=== PATIENT | male | born 1965 | race American Indian/Alaskan Native ===

== ENCOUNTER 2017-01-30 00:31 | Emergency (ER) | payer MEDICAID | END 2017-01-30 01:55 | disposition left against medical advice (07) | LOC: ED 00:31 | DX: M79.605 Pain in left leg (principal); Z88.1 Allergy status to other antibiotic agents; Z88.8 Allergy status to other drugs, medicaments and biological substances; Z53.21 Procedure and treatment not carried out due to patient leaving prior to being seen by health care provider ==

== ENCOUNTER 2017-01-30 14:57 | Outpatient (CLI) | payer MEDICAID ==
[2017-01-30 15:28] LABS: BUN/Creatinine Ratio 11.2; Calcium 9.6 mg/dL (8.4-10.2); Potassium 4.9 mmol/L (3.6-5.0)
== END 2017-01-30 14:58 | disposition home or self-care (01) ==
LOC: LAB 14:57
PROVIDERS: ATTEND Internal Medicine Nephrology
DX: E87.5 Hyperkalemia (principal)
CPT/HCPCS: 36415; 80048

== ENCOUNTER 2019-02-06 11:49 | Outpatient (CLI) | payer MEDICAID ==
[2019-02-06 12:28] LABS: Hematocrit 39.9 % (35.5-45.6); Hemoglobin 12.9 gm/dl (11.8-15.2); Mean Corpuscular HGB Conc 32 % (32-34); Mean Corpuscular Volume 85 fl (84-94); Platelet Count 191 K/mm3 (140-440); Red Blood Count 4.68 M/mm3 (3.65-5.03); Red Cell Distribution Width 15.3 % (13.2-15.2)
[2019-02-06 12:53] LABS: Albumin 4.7 g/dL (3.9-5); Calcium 9.2 mg/dL (8.4-10.2)
[2019-02-06 14:03] LABS: Creatinine,Urine 69.3 mg/dL (0.1-20.0); Protein/Creatinine Ratio,Urine 1.24
[2019-02-10 13:29] LABS: Vitamin D, 25-OH, D2 <4 ng/mL
== END 2019-02-06 11:50 | disposition home or self-care (01) ==
LOC: LAB 11:49
PROVIDERS: ATTEND Internal Medicine Nephrology
DX: I12.0 Hypertensive chronic kidney disease with stage 5 chronic kidney disease or end stage renal disease (principal); N18.5 Chronic kidney disease, stage 5; N25.81 Secondary hyperparathyroidism of renal origin; E55.9 Vitamin D deficiency, unspecified; F17.200 Nicotine dependence, unspecified, uncomplicated; K21.9 Gastro-esophageal reflux disease without esophagitis
CPT/HCPCS: 36415; 80048; 82040; 82306; 82570; 83970; 84100; 84156; 85027

== ENCOUNTER 2019-08-03 00:31 | Inpatient (IN) | payer MEDICAID ==
[2019-08-03] MEDS ORDERED: ASPIRIN 325 MG TAB PO ONE (00:49)
[2019-08-03] MEDS ORDERED: ONDANSETRON 4 MG/2 ML INJ IV ONE (00:51)
[2019-08-03] MEDS ORDERED: FAMOTIDINE 20 MG/2 ML INJ IV ONE (00:51)
[2019-08-03] MEDS ORDERED: ACETAMINOPHEN 325 MG TAB PO ONE (00:52)
[2019-08-03] MEDS ORDERED: NITROGLYCERIN DRIP 50 MG/250 ML BOTTLE IV SCH (01:00)
--- NOTE | 2019-08-03 01:16 | Emergency Department Report ---
ED General Adult HPI - General Chief complaint: Chest Pain Stated complaint: CHEST PAIN Time Seen by Provider: 08/03/19 00:41 Source: EMS Mode of arrival: Stretcher Limitations: No Limitations - History of Present Illness Initial comments: Patient is a 54-year-old -Filipino male who is presenting with chest pain with nausea vomiting. Patient is a poor historian and is having a difficult time given timeframe for his symptoms. The patient has a history of hypertension and lupus and kidney disease and stopped taking hemodialysis on his own 1 year ago. Patient was initially stated that he's had chest pain for the last several hours as well as distention of his neck veins and pain of his neck with nausea vomiting for the past several hours. When asked head the patient had these symptoms before he states he's has been continuously for the last 4 months. Patient also states he has left arm weakness and also been present for several months as well. Patient then told the nurse that his symptoms started acutely tonight. Patient denies fevers chills cough cold or congestion. - Related Data Previous Rx's Medication Instructions Recorded Last Taken Type Calcitriol [Rocaltrol] 0.25 mcg PO QDAY #30 capsule 03/19/15 Unknown Rx Acetaminophen [Acetaminophen TAB] 650 mg PO Q4H PRN #30 tablet 04/06/18 Unknown Rx Gabapentin 300 mg PO BID #60 capsule 04/06/18 Unknown Rx LORazepam [Ativan] 1 mg PO TID PRN #15 tablet 04/06/18 Unknown Rx Metoprolol [Lopressor TAB] 100 mg PO BID #60 tablet 04/06/18 Unknown Rx Minoxidil [Loniten] 10 mg PO BID #60 tablet 04/06/18 Unknown Rx NIFEdipine XL [Procardia Xl] 60 mg PO BID #60 tablet 04/06/18 Unknown Rx Sodium Bicarbonate 650 mg PO BID #60 tablet 04/06/18 Unknown Rx cloNIDine [Catapres] 0.1 mg PO Q8HR #90 tablet 04/06/18 Unknown Rx oxyCODONE /ACETAMINOPHEN [Percocet 1 tab PO Q6H PRN #20 tablet 04/06/18 Unknown Rx 5/325 mg] Allergies Allergy/AdvReac Type Severity Reaction Status Date / Time doxycycline Allergy Unknown Verified 11/01/16 16:25 prochlorperazine edisylate Allergy Unknown Verified 11/01/16 16:25 [From Compazine] ED Review of Systems ROS: Stated complaint: CHEST PAIN Other details as noted in HPI Comment: All other systems reviewed and negative ED Past Medical Hx - Past Medical History Hx Hypertension: Yes Hx Heart Attack/AMI: No Hx Congestive Heart Failure: No Hx Diabetes: No Hx Deep Vein Thrombosis: No Hx Pulmonary Embolism: No Hx Liver Disease: No Hx Renal Disease: Yes Hx Sickle Cell Disease: No Hx Arthritis: No Hx Headaches / Migraines: No Hx Seizures: No Hx Kidney Stones: No Hx Asthma: No Hx COPD: No Hx Tuberculosis: No Hx Dementia: No Hx HIV: No Additional medical history: Lupus - Surgical History Hx Coronary Stent: No Hx Open Heart Surgery: No Hx Pacemaker: No Hx Internal Defibrillator: No Hx Cholecystectomy: Yes Hx Appendectomy: No Hx Breast Surgery: No Additional Surgical History: kidney biopsys - Social History Smoking Status: Current Every Day Smoker Substance Use Type: None - Medications Home Medications: Home Medications Medication Instructions Recorded Confirmed Last Taken Type Calcitriol [Rocaltrol] 0.25 mcg PO QDAY #30 capsule 03/19/15 03/31/18 Unknown Rx Acetaminophen [Acetaminophen TAB] 650 mg PO Q4H PRN #30 tablet 04/06/18 Unknown Rx Gabapentin 300 mg PO BID #60 capsule 04/06/18 Unknown Rx LORazepam [Ativan] 1 mg PO TID PRN #15 tablet 04/06/18 Unknown Rx Metoprolol [Lopressor TAB] 100 mg PO BID #60 tablet 04/06/18 Unknown Rx Minoxidil [Loniten] 10 mg PO BID #60 tablet 04/06/18 Unknown Rx NIFEdipine XL [Procardia Xl] 60 mg PO BID #60 tablet 04/06/18 Unknown Rx Sodium Bicarbonate 650 mg PO BID #60 tablet 04/06/18 Unknown Rx cloNIDine [Catapres] 0.1 mg PO Q8HR #90 tablet 04/06/18 Unknown Rx oxyCODONE /ACETAMINOPHEN [Percocet 1 tab PO Q6H PRN #20 tablet 04/06/18 Unknown Rx 5/325 mg] ED Physical Exam - General Limitations: No Limitations General appearance: alert, in distress - Head Head exam: Present: atraumatic, normocephalic - Eye Eye exam: Present: normal appearance, PERRL, EOMI - ENT ENT exam: Present: mucous membranes moist - Neck Neck exam: Present: normal inspection - Respiratory Respiratory exam: Present: normal lung sounds bilaterally. Absent: respiratory distress, wheezes, rales, rhonchi, stridor - Cardiovascular Cardiovascular Exam: Present: regular rate, normal rhythm, normal heart sounds. Absent: systolic murmur, diastolic murmur, rubs, gallop - GI/Abdominal GI/Abdominal exam: Present: soft, normal bowel sounds. Absent: distended, tenderness, guarding, rebound - Rectal Rectal exam: Present: deferred - Extremities Exam Extremities exam: Present: normal inspection - Back Exam Back exam: Present: normal inspection - Neurological Exam Neurological exam: Present: alert, oriented X3 - Psychiatric Psychiatric exam: Present: normal affect, normal mood - Skin Skin exam: Present: warm, dry, intact, normal color. Absent: rash ED Course Vital Signs 08/03/19 08/03/19 00:47 00:53 Temperature 98.1 F Pulse Rate 88 Respiratory 18 Rate Blood Pressure 204/132 ED Medical Decision Making - Lab Data Result diagrams: 08/03/19 01:11 08/03/19 01:11 Lab Results 08/03/19 08/03/19 08/03/19 Range/Units 01:11 01:11 01:11 WBC 6.0 (4.5-11.0) K/mm3 RBC 3.98 (3.65-5.03) M/mm3 Hgb 11.1 L (11.8-15.2) gm/dl Hct 33.7 L (35.5-45.6) % MCV 85 (84-94) fl MCH 28 (28-32) pg MCHC 33 (32-34) % RDW 15.3 H (13.2-15.2) % Plt Count 184 (140-440) K/mm3 Lymph % (Auto) 23.9 (13.4-35.0) % [place] % (Auto) 7.8 H (0.0-7.3) % Eos % (Auto) 3.5 (0.0-4.3) % Baso % (Auto) 0.7 (0.0-1.8) % Lymph # 1.4 (1.2-5.4) K/mm3 [place] # 0.5 (0.0-0.8) K/mm3 Eos # 0.2 (0.0-0.4) K/mm3 Baso # 0.0 (0.0-0.1) K/mm3 Seg Neutrophils % 64.1 (40.0-70.0) % Seg Neutrophils # 3.8 (1.8-7.7) K/mm3 PT (12.2-14.9) Sec. INR (0.87-1.13) APTT (24.2-36.6) Sec. Sodium 139 (137-145) mmol/L Potassium 3.9 (3.6-5.0) mmol/L Chloride 103.1 (98-107) mmol/L Carbon Dioxide 19 L (22-30) mmol/L Anion Gap 21 mmol/L BUN 93 H (9-20) mg/dL Creatinine 10.8 H (0.8-1.5) mg/dL Estimated GFR 6 ml/min BUN/Creatinine Ratio 9 % Glucose 101 H (75-100) mg/dL Calcium 8.5 (8.4-10.2) mg/dL Total Bilirubin 0.30 (0.1-1.2) mg/dL AST 19 (5-40) units/L ALT 24 (7-56) units/L Alkaline Phosphatase 93 (35-129) units/L Troponin T 0.016 (0.00-0.029) ng/mL Total Protein 8.0 (6.3-8.2) g/dL Albumin 4.6 (3.9-5) g/dL Albumin/Globulin Ratio 1.4 % Lipase 90 H (13-60) units/L Urine Color (Yellow) Urine Turbidity (Clear) Urine pH (5.0-7.0) Ur Specific Model (1.003-1.030) Urine Protein (Negative) mg/dL Urine Glucose (UA) (Negative) mg/dL Urine Ketones (Negative) mg/dL Urine Blood (Negative) Urine Nitrite (Negative) Urine Bilirubin (Negative) Urine Urobilinogen (<2.0) mg/dL Ur Leukocyte Esterase (Negative) Urine WBC (Auto) (0.0-6.0) /HPF Urine RBC (Auto) (0.0-6.0) /HPF Urine Bacteria (Auto) (Negative) /HPF Urine Mucus /HPF Urine Opiates Screen Urine Methadone Screen Ur Barbiturates Screen Ur Phencyclidine Scrn Ur Amphetamines Screen U Benzodiazepines Scrn Urine Cocaine Screen U Marijuana (THC) Screen Drugs of Abuse Note Plasma/Serum Alcohol (0-0.07) % 08/03/19 08/03/19 08/03/19 Range/Units 01:11 01:52 Unknown WBC (4.5-11.0) K/mm3 RBC (3.65-5.03) M/mm3 Hgb (11.8-15.2) gm/dl Hct (35.5-45.6) % MCV (84-94) fl MCH (28-32) pg MCHC (32-34) % RDW (13.2-15.2) % Plt Count (140-440) K/mm3 Lymph % (Auto) (13.4-35.0) % [place] % (Auto) (0.0-7.3) % Eos % (Auto) (0.0-4.3) % Baso % (Auto) (0.0-1.8) % Lymph # (1.2-5.4) K/mm3 [place] # (0.0-0.8) K/mm3 Eos # (0.0-0.4) K/mm3 Baso # (0.0-0.1) K/mm3 Seg Neutrophils % (40.0-70.0) % Seg Neutrophils # (1.8-7.7) K/mm3 PT 18.3 H (12.2-14.9) Sec. INR 1.54 H (0.87-1.13) APTT 33.1 (24.2-36.6) Sec. Sodium (137-145) mmol/L Potassium (3.6-5.0) mmol/L Chloride (98-107) mmol/L Carbon Dioxide (22-30) mmol/L Anion Gap mmol/L BUN (9-20) mg/dL Creatinine (0.8-1.5) mg/dL Estimated GFR ml/min BUN/Creatinine Ratio % Glucose (75-100) mg/dL Calcium (8.4-10.2) mg/dL Total Bilirubin (0.1-1.2) mg/dL AST (5-40) units/L ALT (7-56) units/L Alkaline Phosphatase (35-129) units/L Troponin T (0.00-0.029) ng/mL Total Protein (6.3-8.2) g/dL Albumin (3.9-5) g/dL Albumin/Globulin Ratio % Lipase (13-60) units/L Urine Color Straw (Yellow) Urine Turbidity Clear (Clear) Urine pH 5.0 (5.0-7.0) Ur Specific Model 1.008 (1.003-1.030) Urine Protein 100 mg/dl (Negative) mg/dL Urine Glucose (UA) Neg (Negative) mg/dL Urine Ketones Neg (Negative) mg/dL Urine Blood Sm (Negative) Urine Nitrite Neg (Negative) Urine Bilirubin Neg (Negative) Urine Urobilinogen < 2.0 (<2.0) mg/dL Ur Leukocyte Esterase Neg (Negative) Urine WBC (Auto) 4.0 (0.0-6.0) /HPF Urine RBC (Auto) 4.0 (0.0-6.0) /HPF Urine Bacteria (Auto) 1+ (Negative) /HPF Urine Mucus Few /HPF Urine Opiates Screen Urine Methadone Screen Ur Barbiturates Screen Ur Phencyclidine Scrn Ur Amphetamines Screen U Benzodiazepines Scrn Urine Cocaine Screen U Marijuana (THC) Screen Drugs of Abuse Note Plasma/Serum Alcohol < 0.01 (0-0.07) % 08/03/19 Range/Units Unknown WBC (4.5-11.0) K/mm3 RBC (3.65-5.03) M/mm3 Hgb (11.8-15.2) gm/dl Hct (35.5-45.6) % MCV (84-94) fl MCH (28-32) pg MCHC (32-34) % RDW (13.2-15.2) % Plt Count (140-440) K/mm3 Lymph % (Auto) (13.4-35.0) % [place] % (Auto) (0.0-7.3) % Eos % (Auto) (0.0-4.3) % Baso % (Auto) (0.0-1.8) % Lymph # (1.2-5.4) K/mm3 [place] # (0.0-0.8) K/mm3 Eos # (0.0-0.4) K/mm3 Baso # (0.0-0.1) K/mm3 Seg Neutrophils % (40.0-70.0) % Seg Neutrophils # (1.8-7.7) K/mm3 PT (12.2-14.9) Sec. INR (0.87-1.13) APTT (24.2-36.6) Sec. Sodium (137-145) mmol/L Potassium (3.6-5.0) mmol/L Chloride (98-107) mmol/L Carbon Dioxide (22-30) mmol/L Anion Gap mmol/L BUN (9-20) mg/dL Creatinine (0.8-1.5) mg/dL Estimated GFR ml/min BUN/Creatinine Ratio % Glucose (75-100) mg/dL Calcium (8.4-10.2) mg/dL Total Bilirubin (0.1-1.2) mg/dL AST (5-40) units/L ALT (7-56) units/L Alkaline Phosphatase (35-129) units/L Troponin T (0.00-0.029) ng/mL Total Protein (6.3-8.2) g/dL Albumin (3.9-5) g/dL Albumin/Globulin Ratio % Lipase (13-60) units/L Urine Color (Yellow) Urine Turbidity (Clear) Urine pH (5.0-7.0) Ur Specific Model (1.003-1.030) Urine Protein (Negative) mg/dL Urine Glucose (UA) (Negative) mg/dL Urine Ketones (Negative) mg/dL Urine Blood (Negative) Urine Nitrite (Negative) Urine Bilirubin (Negative) Urine Urobilinogen (<2.0) mg/dL Ur Leukocyte Esterase (Negative) Urine WBC (Auto) (0.0-6.0) /HPF Urine RBC (Auto) (0.0-6.0) /HPF Urine Bacteria (Auto) (Negative) /HPF Urine Mucus /HPF Urine Opiates Screen Presumptive negative Urine Methadone Screen Presumptive negative Ur Barbiturates Screen Presumptive negative Ur Phencyclidine Scrn Presumptive negative Ur Amphetamines Screen Presumptive negative U Benzodiazepines Scrn Presumptive negative Urine Cocaine Screen Presumptive negative U Marijuana (THC) Screen Presumptive negative Drugs of Abuse Note Disclamer Plasma/Serum Alcohol (0-0.07) % - EKG Data -: EKG Interpreted by Co EKG shows normal: sinus rhythm (rate 83), axis, intervals, QRS complexes, ST-T waves Rate: normal - EKG Data Interpretation: normal EKG - Radiology Data CHEST 1 VIEW INDICATION / CLINICAL INFORMATION: Chest Pain. COMPARISON: None available. FINDINGS: SUPPORT DEVICES: None. HEART / MEDIASTINUM: No significant abnormality. LUNGS / PLEURA: No significant pulmonary or pleural abnormality. No pneumothorax. ADDITIONAL FINDINGS: No significant additional findings. IMPRESSION: 1. No acute findings. - Medical Decision Making Patient was started on nitro drip for his chest pain as well as his elevated blood pressure. Blood pressure dropped to 180 systolic. Patient was comfortable and was able to rest and take a nap after the nitroglycerin was given. Patient did not appear to be fluid overloaded of regarding missing his dialysis for the last year. Patient was in end-stage renal failure with GFR 6. Patient's we taken off of the nitro drip and will be given boluses of labetalol for blood pressure control. Patient does have a heart score of 4. Patient is admitted for cardiology consult as well as nephrology consult. Critical care attestation.: If time is entered above; I have spent that time in minutes in the direct care of this critically ill patient, excluding procedure time. ED Disposition Clinical Impression: Hypertensive urgency, malignant, Current non-adherence to medical treatment Chest pain Qualifiers: Chest pain type: unspecified Qualified Code(s): R07.9 - Chest pain, unspecified CKD (chronic kidney disease) Qualifiers: Chronic kidney disease stage: stage 5, not on chronic dialysis Qualified Code(s): N18.5 - Chronic kidney disease, stage 5 Systemic lupus erythematosus Qualifiers: Systemic lupus erythematosus type: unspecified Systemic lupus erythematosus organ involvement: unspecified Qualified Code(s): M32.9 - Systemic lupus erythematosus, unspecified Disposition: 09 OP ADMIT IP TO THIS HOSP Is pt being admited?: Yes Does the pt Need Aspirin: No Condition: Stable Instructions: Chest Pain (ED) Time of Disposition: 03:02
--- NOTE | 2019-08-03 01:34 | XRay Report ---
CHEST 1 VIEW INDICATION / CLINICAL INFORMATION: Chest Pain. COMPARISON: None available. FINDINGS: SUPPORT DEVICES: None. HEART / MEDIASTINUM: No significant abnormality. LUNGS / PLEURA: No significant pulmonary or pleural abnormality. No pneumothorax. ADDITIONAL FINDINGS: No significant additional findings. IMPRESSION: 1. No acute findings. Signer Name: Shay Grant MD Signed: 08/03/2019 1:29 AM Workstation Name: [id number]
[2019-08-03 01:44] LABS: Basophils % (Auto) 0.7 % (0.0-1.8); Eosinophils # (Auto) 0.2 K/mm3 (0.0-0.4); Eosinophils % (Auto) 3.5 % (0.0-4.3); Hematocrit 33.7 % (35.5-45.6); Hemoglobin 11.1 gm/dl (11.8-15.2); Lymphocytes # (Auto) 1.4 K/mm3 (1.2-5.4); Lymphocytes % (Auto) 23.9 % (13.4-35.0); Mean Corpuscular HGB Conc 33 % (32-34); Mean Corpuscular Volume 85 fl (84-94); Monocytes # (Auto) 0.5 K/mm3 (0.0-0.8); Monocytes % (Auto) 7.8 % (0.0-7.3); Platelet Count 184 K/mm3 (140-440); Red Blood Count 3.98 M/mm3 (3.65-5.03); Red Cell Distribution Width 15.3 % (13.2-15.2)
[2019-08-03 01:45] LABS: Albumin 4.6 g/dL (3.9-5); Calcium 8.5 mg/dL (8.4-10.2)
[2019-08-03] MEDS ORDERED: DICYCLOMINE 20 MG/2 ML INJ IM ONE (01:46)
[2019-08-03] MEDS ORDERED: KETOROLAC 30 MG/1 ML INJ IV ONE (01:59)
[2019-08-03 02:01] LABS: INR 1.54 (0.87-1.13)
[2019-08-03] MEDS ORDERED: KETOROLAC 30 MG/1 ML INJ ONE (02:01)
[2019-08-03 02:02] LABS: Partial Thromboplastin Time 33.1 Sec. (24.2-36.6)
[2019-08-03 02:28] LABS: Amphetamine Screen,Urine PRESUMPTIVE NEGATIVE; Benzodiazepines Screen,Urine PRESUMPTIVE NEGATIVE; Cannabinoid Screen,Urine PRESUMPTIVE NEGATIVE; Cocaine Screen,Urine PRESUMPTIVE NEGATIVE; Methadone Screen,Urine PRESUMPTIVE NEGATIVE; Opiate Screen,Urine PRESUMPTIVE NEGATIVE
[2019-08-03 02:38] LABS: Bacteria,Urine 1+ /HPF (Negative); Bilirubin,Urine NEG (Negative); Blood,Urine SM (Negative); Color,Urine Straw (Yellow); Mucus,Urine FEW /HPF; Urobilinogen,Urine < 2.0 mg/dL (<2.0)
[2019-08-03] MEDS ORDERED: LORazepam 1 MG TAB PO PRN (06:24)
[2019-08-03] MEDS ORDERED: ACETAMINOPHEN 325 MG TAB PO PRN ×2 (06:24→06:28)
[2019-08-03] MEDS ORDERED: oxyCODONE /ACETAMINOPHEN 5-325MG TAB PO PRN (06:24)
--- NOTE | 2019-08-03 06:24 | Event Note ---
Date: 08/03/19 See history and physical in the reports Chest pain rule out [facility] protocol ESRD needing dialysis
--- NOTE | 2019-08-03 06:58 | History and Physical Report ---
CHIEF COMPLAINT: 1. Chest pain. 2. Nausea and vomiting. 3. Missed hemodialysis for about 10 months. HISTORY OF PRESENT ILLNESS: A 54-year-old -[place] male with a history of end-stage renal disease, on hemodialysis, comes in for left-sided chest pain associated with nausea and vomiting for 1 day duration. Chest pain is intermittent and retrosternal. No radiation. No diaphoresis, shortness of breath present, and orthopnea present. The patient was getting dialysis until 10 months ago. The patient took himself off dialysis and not going for dialysis for the last 10 months. The patient's operations recruiter is Dr. Poe. The patient also has orthopnea. Shortness of breath on minimal exertion. Very poor historian. PAST MEDICAL HISTORY: As mentioned, hypertension, end-stage renal disease, chronic pain. No diabetes. PAST SURGICAL HISTORY: Kidney biopsies. SOCIAL HISTORY: Smokes over a pack a day. FAMILY HISTORY: Hypertension. CURRENT MEDICATIONS: On the chart, lorazepam 1 mg 3 times a day, metoprolol 100 mg twice a day, minoxidil 10 mg twice a day, and nifedipine 60 mg twice a day. REVIEW OF SYSTEMS: Significant for nausea, vomiting for a couple of days and associated with chest pain and increasing shortness of breath of 1 week duration. The patient has been missing dialysis. Otherwise, review of systems negative. PHYSICAL EXAMINATION: GENERAL: Middle-aged male, looks older than his age. Some distress. VITAL SIGNS: Temperature 98.7, pulse is 78, respirations are 16, sats are 98%, and blood pressure 157/109. HEENT: Unremarkable. Pupils are equal and reactive. NECK: Supple, no lymphadenopathy, no thyromegaly. LUNGS: Clear to auscultation and percussion. Good air entry. CARDIOVASCULAR SYSTEM: S1, S2 heard. No gallop, no murmur, no rub. Apical impulse in left fifth intercostal space and midclavicular line. ABDOMEN: Soft and benign. No hepatosplenomegaly. No guarding, no rigidity. Hernial orifices are normal. EXTREMITIES: Good pedal pulses. Slight pedal edema present. CENTRAL NERVOUS SYSTEM: Alert and oriented x 4, nonfocal exam. LABORATORY DATA: Significant for a white count of 6000, H and H 11.1 and 33.7, platelet count of 184,000. Protime is 18.3, INR is 1.54. Sodium is 139, potassium is low 3.9, chloride is 103, bicarbonate is 19, BUN and creatinine is 93 and 10.8, glucose is 101. Lipase is 90. Urine negative. Drug screen negative. DIAGNOSTIC DATA: Chest x-ray shows no acute findings. No significant additional findings. No pulmonary edema. EKG reviewed. ASSESSMENT AND PLAN: 1. Chest pain, rule out myocardial infarction, chest pain protocol. Serial troponins and Lexiscan ordered. 2. End-stage renal disease, needing dialysis. The patient needs hemodialysis on an urgent basis. The patient needs ultrafiltration. Dr. Poe consulted. 3. Volume overload. The patient needs dialysis for increasing altered ultrafiltration. 4. Hypertension. Continue antihypertensives. 5. Generalized anxiety disorder. Continue lorazepam. 6. Deep venous thrombosis prophylaxis, heparin 5000 q. 12 and gastrointestinal prophylaxis with famotidine. JOB# [id number] [facility]/NTS ZANDER
[2019-08-03] MEDS: cloNIDine 0.1 MG TAB PO SCH ×5 (07:01→22:16)
[2019-08-03] MEDS ORDERED: REGADENOSON 0.4 MG/5 ML INJ IV ONE ×2 (07:02→07:20)
[2019-08-03] MEDS ORDERED: SODIUM CHLORIDE 0.9% 100 ML IV PRN (08:30)
[2019-08-03 11:49] LABS: Hepatitis B Surface Antigen Non-Reactive (Negative); Hepatitis C Virus Antibody Reactive (NonReactive)
[2019-08-03] MEDS: HYDROmorphone 1 MG/1 ML INJ IV PRN ×2 (13:18→19:23)
[2019-08-03] MEDS: SODIUM BICARBONATE 650 MG TAB PO SCH ×2 (14:07→22:08)
[2019-08-03] MEDS: CALCITRIOL 0.25 MCG CAP PO SCH (14:07)
[2019-08-03] MEDS: GABAPENTIN 300 MG CAP PO SCH ×2 (14:07→22:08)
[2019-08-03] MEDS: FAMOTIDINE 10 MG TAB PO SCH ×2 (14:08→22:08)
[2019-08-03] MEDS: NIFEdipine XL 60 MG TAB PO SCH ×2 (14:11→18:31)
[2019-08-03] MEDS: MINOXIDIL 10 MG TAB PO SCH ×2 (14:12→22:10)
[2019-08-03] MEDS: METOPROLOL TARTRATE 100 MG TAB PO SCH ×2 (14:12→22:08)
--- NOTE | 2019-08-03 16:06 | Discharge Summary ---
Providers - Providers Date of Admission: 08/03/19 04:22 Date of discharge: 08/03/19 Attending physician: OMA WILL 08/03/19 06:25 Consult to Physician [CONS] Routine Comment: Consulting Provider: RAGHAVENDRA COLON Physician Instructions: Reason For Exam: ESRD Primary care physician: COOPER APPRENTICE Hospitalization Condition: Stable Pertinent studies: CXR MPI stress test Hospital course: -year-old with a history of presented to the ER with complaints of Retrosternal chest pain for . Patient was evaluated in the ER, initial cardiac enzyme and EKG was unremarkable, chest x-ray showed no infiltrates. Patient was admitted and underwent myocardial stress test which was normal. Patient was then discharged home in stable condition with outpatient follow-up. Discharge diagnosis: Atypical chest pain, likely due to pulmonary edema from volume overload ESRD, noncompliant for HD HTN, stable Disposition: DC-30 STILL A PATIENT Time spent for discharge: 34 minutes Core Measure Documentation - Palliative Care Palliative Care/ Comfort Measures: Not Applicable - Core Measures Any of the following diagnoses?: none Exam - Constitutional Vitals: Temp Pulse Resp BP Pulse Ox 97.8 F 74 18 150/105 98 08/03/19 07:30 08/03/19 14:12 08/03/19 13:48 08/03/19 14:12 08/03/19 07:30 General appearance: Present: no acute distress, well-nourished - EENT Eyes: Present: PERRL ENT: hearing intact, clear oral mucosa - Neck Neck: Present: supple, normal ROM - Respiratory Respiratory effort: normal Respiratory: bilateral: CTA - Cardiovascular Heart Sounds: Present: S1 & S2. Absent: rub, click - Extremities Extremities: pulses symmetrical, No edema Peripheral Pulses: within normal limits - Abdominal General gastrointestinal: Present: soft, non-tender, non-distended, normal bowel sounds - Integumentary Integumentary: Present: clear, warm, dry - Musculoskeletal Musculoskeletal: gait normal, strength equal bilaterally - Psychiatric Psychiatric: appropriate mood/affect, intact judgment & insight - Neurologic Neurologic: CNII-XII intact, moves all extremities Plan Activity: advance as tolerated Weight Bearing Status: Non-Weight Bearing Diet: low fat, low salt, renal Special Instructions: restrict fluid intake to (1.2 L daily) Follow up with: PRIMARY CARE, [Primary Care Provider] - 7 Days
--- NOTE | 2019-08-03 16:53 | Consultation ---
History of Present Illness - Reason for Consult Consult date: 08/03/19 chronic renal failure Requesting physician: OMA WILL - History of Present Illness This is a 54 yo AA M with past medical history of CKD V/ESRD in the setting of poorly controlled hypertension, with h/o lupus, was previously on dialysis but had been able to be transition off. Apparently he was not tolerating the HD sessions well, had issues with intra-dialytic hypotension. 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 Labs showed significantly elevated BUN/Cr at 93/10.8mg/dl for which renal consult is requested. Past History Past Medical History: ESRD, hypertension Past Surgical History: Other (AVF placement, kidney biopsy ) Social history: smoking (over a pack a day ). denies: alcohol abuse, prescription drug abuse, IV drug use Family history: hypertension Medications and Allergies Allergies Allergy/AdvReac Type Severity Reaction Status Date / Time doxycycline Allergy Unknown Verified 11/01/16 16:25 prochlorperazine edisylate Allergy Unknown Verified 11/01/16 16:25 [From Compazine] Home Medications Medication Instructions Recorded Confirmed Last Taken Type Calcitriol [Rocaltrol] 0.25 mcg PO QDAY #30 capsule 03/19/03/31/18 Unknown Rx Acetaminophen [Acetaminophen TAB] 650 mg PO Q4H PRN #30 tablet 04/06/18 Unknown Rx Gabapentin 300 mg PO BID #60 capsule 04/06/18 Unknown Rx LORazepam [Ativan] 1 mg PO TID PRN #15 tablet 04/06/18 Unknown Rx Metoprolol [Lopressor TAB] 100 mg PO BID #60 tablet 04/06/18 Unknown Rx Minoxidil [Loniten] 10 mg PO BID #60 tablet 04/06/18 Unknown Rx NIFEdipine XL [Procardia Xl] 60 mg PO BID #60 tablet 04/06/18 Unknown Rx Sodium Bicarbonate 650 mg PO BID #60 tablet 04/06/18 Unknown Rx cloNIDine [Catapres] 0.1 mg PO Q8HR #90 tablet 04/06/18 Unknown Rx oxyCODONE /ACETAMINOPHEN [Percocet 1 tab PO Q6H PRN #20 tablet 04/06/18 Unknown Rx 5/325 mg] Active Meds: Active Medications Acetaminophen (Tylenol) 650 mg PO Q4H PRN PRN Reason: Pain MILD(1-3)/Fever >100.5/MCDONOUGH Calcitriol (Rocaltrol) 0.25 mcg PO QDAY [facility] Last Admin: 08/03/19 14:07 Dose: 0.25 mcg Documented by: Clonidine HCl (Catapres) 0.1 mg PO Q8HR [facility] Last Admin: 08/03/19 15:52 Dose: Not Given Documented by: Famotidine (Pepcid) 10 mg PO BID [facility] Last Admin: 08/03/19 14:08 Dose: 10 mg Documented by: Gabapentin (Gabapentin) 300 mg PO BID [facility] Last Admin: 08/03/19 14:07 Dose: 300 mg Documented by: Hydromorphone HCl (Dilaudid) 0.5 mg IV Q3H PRN PRN Reason: Pain , Severe (7-10) Last Admin: 08/03/19 13:18 Dose: 0.5 mg Documented by: Sodium Chloride (Nacl 0.9%) 100 mls @ 999 mls/hr IV ALISON PRN PRN Reason: Hypotension Lorazepam (Ativan) 1 mg PO TID PRN PRN Reason: Anxiety Metoclopramide HCl (Reglan) 5 mg IV Q6H PRN PRN Reason: Nausea And Vomiting Metoprolol Tartrate (Metoprolol) 100 mg PO BID [facility] Last Admin: 08/03/19 14:12 Dose: 100 mg Documented by: Minoxidil (Loniten) 10 mg PO BID [facility] Last Admin: 08/03/19 14:12 Dose: Not Given Documented by: Nifedipine (Procardia Xl) 60 mg PO BID@0800,1700 [facility] Last Admin: 08/03/19 14:11 Dose: Not Given Documented by: Ondansetron HCl (Zofran) 4 mg IV Q8H PRN PRN Reason: Nausea And Vomiting Oxycodone/Acetaminophen (Percocet 5/325) 1 tab PO Q6H PRN PRN Reason: Pain, Moderate (4-6) Last Admin: 08/03/19 07:04 Dose: 1 tab Documented by: Sodium Bicarbonate (Sodium Bicarbonate) 650 mg PO BID [facility] Last Admin: 08/03/19 14:07 Dose: 650 mg Documented by: Sodium Chloride (Sodium Chloride Flush Syringe 10 Ml) 10 ml IV BID [facility] Last Admin: 08/03/19 14:12 Dose: 10 ml Documented by: Sodium Chloride (Sodium Chloride Flush Syringe 10 Ml) 10 ml IV PRN PRN PRN Reason: LINE FLUSH Review of Systems All systems: negative Constitutional: fatigue, weakness, malaise Exam - Vital Signs Vital signs: Vital Signs Temp Pulse BP 98.1 F 88 204/132 08/03/19 00:47 08/03/19 00:47 08/03/19 00:47 - General Appearance General appearance: well-developed, well-nourished, appears stated age EENT: ATNC, PERRL, mucous membranes moist Neck: Present: neck supple Respiratory: Clear to Ascultation Heart: regular, S1S2 Gastrointestinal: Present: normoactive bowel sounds Integumentary: no rash, other (no edema ) Neurologic: no focal deficit, alert and oriented x3, strength 5/5, CN 3-12 intact Psychiatric: mood/affect appropriate, cooperative Results - Lab Results 08/03/19 01:11 08/03/19 01:11 Most recent lab results Calcium 8.5 mg/dL (8.4-10.2) 08/03/19 01:11 Assessment and Plan - Patient Problems (1) Uremic syndrome Current Visit: Yes Status: Acute Plan to address problem: secondary to progressive CKD, now approaching ESRD. discussed indications, risks and benefits of HD and also consequences of not receiving maintenance HD at this point, which could incl. cardiovascular complication, hyperkalemia, cardiac arrthythmia, uremic complication, even in the future. Pt understands however not willing to commit to senior care HD. pt is willing to get 1 time HD on this admission and will follow up with Dr Poe as outpatient. HD arranged. Discussed with Dr Will. (2) Hypertensive chronic kidney disease with stage 5 chronic kidney disease or end stage renal disease Current Visit: Yes Status: Acute Plan to address problem: monitor BP on current meds (3) Chronic kidney disease, stage V Current Visit: No Status: Chronic Plan to address problem: advanced CKD secondary to hypertensive nephrosclerosis, now close to ESRD. Refusing care home renal replacement therapy. non-compliant with medical follow up. (4) Metabolic acidosis Current Visit: No Status: Acute Plan to address problem: expect to be corrected with HD. to be discharged on oral na bicarb 650mg po bid.
--- NOTE | 2019-08-03 21:30 | Treadmill Report ---
THALLIUM STRESS TEST LEFT VENTRICLE: Left ventricular chamber size is within normal spread. Perfusion study demonstrates homogeneous uptake of the tracer in all segments, no significant defects identified. Gated analysis suggests mild left ventricular systolic dysfunction with ejection fraction calculated at 41%. CONCLUSION: No demonstrable ischemia on thallium perfusion study. Recommend clinical correlation and echocardiographic reassessment of left ventricular systolic function. JOB# [id number] CA/NTS
[2019-08-03] MEDS: ONDANSETRON 4 MG/2 ML INJ IV PRN (22:10)
[2019-08-04] MEDS: HYDROmorphone 1 MG/1 ML INJ IV PRN ×3 (05:04→14:28)
[2019-08-04] MEDS: cloNIDine 0.1 MG TAB PO SCH ×2 (05:06→14:29)
[2019-08-04] MEDS: ONDANSETRON 4 MG/2 ML INJ IV PRN (05:32)
[2019-08-04 05:44] LABS: Basophils # (Auto) 0.1 K/mm3 (0.0-0.1); Basophils % (Auto) 0.9 % (0.0-1.8); Eosinophils # (Auto) 0.3 K/mm3 (0.0-0.4); Hematocrit 32.7 % (35.5-45.6); Hemoglobin 10.6 gm/dl (11.8-15.2); Lymphocytes # (Auto) 1.9 K/mm3 (1.2-5.4); Lymphocytes % (Auto) 29.4 % (13.4-35.0); Mean Corpuscular HGB Conc 32 % (32-34); Mean Corpuscular Volume 86 fl (84-94); Monocytes # (Auto) 0.7 K/mm3 (0.0-0.8); Monocytes % (Auto) 11.2 % (0.0-7.3); Platelet Count 174 K/mm3 (140-440); Red Blood Count 3.81 M/mm3 (3.65-5.03); Red Cell Distribution Width 15.2 % (13.2-15.2)
[2019-08-04 06:04] LABS: Albumin 3.8 g/dL (3.9-5); Calcium 7.6 mg/dL (8.4-10.2)
--- NOTE | 2019-08-04 09:34 | Progress Note ---
Assessment and Plan - Patient Problems (1) Uremic syndrome Current Visit: Yes Status: Acute Plan to address problem: secondary to progressive CKD, now approaching ESRD. discussed indications, risks and benefits of HD and also consequences of not receiving maintenance HD at this point, which could incl. cardiovascular complication, hyperkalemia, cardiac arrthythmia, uremic complication, even in the future. Pt understands however not willing to commit to residential HD. pt is willing to get 1 time HD on this admission and will follow up with Dr Poe as outpatient. HD arranged for this AM. pt can be discharged after HD with outpatient CKD/ESRD f/u in 1 week (2) Hypertensive chronic kidney disease with stage 5 chronic kidney disease or end stage renal disease Current Visit: Yes Status: Acute Plan to address problem: monitor BP on current meds (3) Chronic kidney disease, stage V Current Visit: No Status: Chronic Plan to address problem: advanced CKD secondary to hypertensive nephrosclerosis, now close to ESRD. Refusing [facility] renal replacement therapy. non-compliant with medical follow up. (4) Metabolic acidosis Current Visit: No Status: Acute Plan to address problem: expect to be corrected with HD. to be discharged on oral na bicarb 650mg po bid. Subjective Date of service: 08/04/19 Principal diagnosis: ESRD Interval history: pt awake, alert, in no acute distress, denies SOB, CP, palpitations, n/v/d Objective - Vital Signs Vital signs: Vital Signs - 12hr 08/03/19 08/03/19 08/04/19 22:08 22:16 00:28 Temperature 98.2 F Pulse Rate 70 70 61 Respiratory 18 Rate Blood Pressure 179/121 179/121 136/90 O2 Sat by Pulse 100 Oximetry 08/04/19 08/04/19 08/04/19 04:56 05:00 07:49 Temperature 98.7 F 97.4 F L Pulse Rate 73 61 64 Respiratory 18 18 Rate Blood Pressure 171/112 120/87 O2 Sat by Pulse 100 99 Oximetry - General Appearance General appearance: well-developed, well-nourished, appears stated age EENT: ATNC, PERRL, mucous membranes moist Neck: no JVD Respiratory: Present: Clear to Ascultation Cardiology: regular, S1S2 Gastrointestinal: normoactive bowel sounds Integumentary: no rash, other (no edema ) Neurologic: no focal deficit, alert and oriented x3, strength 5/5, CN 3-12 intact Psychiatric: mood/affect appropriate, cooperative - Lab 08/04/19 04:17 08/04/19 04:17 Most recent lab results Calcium 7.6 mg/dL (8.4-10.2) L 08/04/19 04:17 Medications & Allergies - Medications Allergies/Adverse Reactions: Allergies doxycycline Allergy (Verified 11/01/16 16:25) Unknown prochlorperazine edisylate [From Compazine] Allergy (Verified 11/01/16 16:25) Unknown Home Medications: Home Medications Medication Instructions Recorded Confirmed Last Taken Type Calcitriol [Rocaltrol] 0.25 mcg PO QDAY #30 capsule 03/19/15 03/31/18 Unknown Rx Acetaminophen [Acetaminophen TAB] 650 mg PO Q4H PRN #30 tablet 04/06/18 Unknown Rx Gabapentin 300 mg PO BID #60 capsule 04/06/18 Unknown Rx LORazepam [Ativan] 1 mg PO TID PRN #15 tablet 04/06/18 Unknown Rx Metoprolol [Lopressor TAB] 100 mg PO BID #60 tablet 04/06/18 Unknown Rx Minoxidil [Loniten] 10 mg PO BID #60 tablet 04/06/18 Unknown Rx NIFEdipine XL [Procardia Xl] 60 mg PO BID #60 tablet 04/06/18 Unknown Rx Sodium Bicarbonate 650 mg PO BID #60 tablet 04/06/18 Unknown Rx cloNIDine [Catapres] 0.1 mg PO Q8HR #90 tablet 04/06/18 Unknown Rx oxyCODONE /ACETAMINOPHEN [Percocet 1 tab PO Q6H PRN #20 tablet 04/06/18 Unknown Rx 5/325 mg] Active Medications: Generic Name Dose Route Start Last Admin Trade Name Freq PRN Reason Stop Dose Admin Acetaminophen 650 mg 08/03/19 06:28 Tylenol PO Q4H PRN Pain MILD(1-3)/Fever >100.5/MCDONOUGH Calcitriol 0.25 mcg 08/03/19 10:00 08/03/19 14:07 Rocaltrol PO 0.25 mcg QDAY KELLY Administration Clonidine HCl 0.1 mg 08/03/19 06:00 08/04/19 05:06 Catapres PO Not Given Q8HR KELLY Famotidine 10 mg 08/03/19 10:00 08/03/19 22:08 Pepcid PO 10 mg BID KELYL Administration Gabapentin 300 mg 08/03/19 10:00 08/03/19 22:08 Gabapentin PO 300 mg BID KELLY Administration Hydromorphone HCl 0.5 mg 08/03/19 06:28 08/04/19 05:04 Dilaudid IV 0.5 mg Q3H PRN Administration Pain , Severe (7-10) Sodium Chloride 100 mls @ 999 mls/hr 08/03/19 08:30 Nacl 0.9% IV ALISON PRN Hypotension Lorazepam 1 mg 08/03/19 06:24 08/03/19 22:09 Ativan PO 1 mg TID PRN Administration Anxiety Metoclopramide HCl 5 mg 08/03/19 06:28 Reglan IV Q6H PRN Nausea And Vomiting Metoprolol Tartrate 100 mg 08/03/19 10:00 08/03/19 22:08 Metoprolol PO 100 mg BID KELLY Administration Minoxidil 10 mg 08/03/19 10:00 08/03/19 22:10 Loniten PO Not Given BID [facility] Nifedipine 60 mg 08/03/19 08:00 08/03/19 18:31 Procardia Xl PO Not Given BID@0800,1700 [facility] Ondansetron HCl 4 mg 08/03/19 06:28 08/04/19 05:32 Zofran IV 4 mg Q8H PRN Administration Nausea And Vomiting Oxycodone/Acetaminophen 1 tab 08/03/19 06:24 08/03/19 07:04 Percocet 5/325 PO 1 tab Q6H PRN Administration Pain, Moderate (4-6) Sodium Bicarbonate 650 mg 08/03/19 10:00 08/03/19 22:08 Sodium Bicarbonate PO 650 mg BID KELLY Administration Sodium Chloride 10 ml 08/03/19 10:00 08/03/19 22:10 Sodium Chloride Flush Syringe 10 Ml IV 10 ml BID KELLY Administration Sodium Chloride 10 ml 08/03/19 06:28 Sodium Chloride Flush Syringe 10 Ml IV PRN PRN LINE FLUSH
[2019-08-04] MEDS: CALCITRIOL 0.25 MCG CAP PO SCH (09:53)
[2019-08-04] MEDS: NIFEdipine XL 60 MG TAB PO SCH ×2 (09:53→17:26)
[2019-08-04] MEDS: FAMOTIDINE 10 MG TAB PO SCH (09:53)
[2019-08-04] MEDS: SODIUM BICARBONATE 650 MG TAB PO SCH (09:53)
[2019-08-04] MEDS: GABAPENTIN 300 MG CAP PO SCH (09:53)
[2019-08-04] MEDS: MINOXIDIL 10 MG TAB PO SCH (09:53)
[2019-08-04] MEDS: METOPROLOL TARTRATE 100 MG TAB PO SCH (09:54)
[2019-08-04] MEDS: METOCLOPRAMIDE 10 MG/2 ML INJ IV PRN ×2 (10:05→14:29)
--- NOTE | 2019-08-04 10:11 | Progress Note ---
Assessment and Plan Atypical chest pain, likely due to pulmonary edema from volume overload - exercise stress test was normal ESRD, noncompliant for HD - nephrology consulted, ordered for HD HTN, stable Noncompliance, counselled DVt Px, SCD Disposition: tomorrow am following HD Subjective Date of service: 08/03/19 Principal diagnosis: ESRD Interval history: Patient seen and examined Noncompliant with his outpt HD Stress test was normal today He refused HD this am, placed for discharge but then he now agrees for HD tomorrow am Objective - Constitutional Vitals: Vital Signs - 12hr 08/03/19 08/04/19 08/04/19 22:16 00:28 04:56 Temperature 98.2 F 98.7 F Pulse Rate 70 61 73 Respiratory 18 18 Rate Blood Pressure 179/121 136/90 171/112 O2 Sat by Pulse 100 100 Oximetry 08/04/19 08/04/19 08/04/19 05:00 07:49 09:54 Temperature 97.4 F L Pulse Rate 61 64 64 Respiratory 18 Rate Blood Pressure 120/87 120/87 O2 Sat by Pulse 99 Oximetry General appearance: Present: no acute distress, well-nourished - EENT Eyes: PERRL, EOM intact ENT: hearing intact, clear oral mucosa Ears: bilateral: normal - Neck Neck: supple, normal ROM - Respiratory Respiratory effort: normal Respiratory: bilateral: CTA - Cardiovascular Rhythm: regular Heart Sounds: Present: S1 & S2. Absent: gallop, rub Extremities: pulses intact, No edema, normal color, Full ROM - Gastrointestinal General gastrointestinal: Present: soft, non-tender, non-distended, normal bowel sounds - Integumentary Integumentary: clear, warm, dry - Musculoskeletal Musculoskeletal: 1, strength equal bilaterally - Neurologic Neurologic: moves all extremities - Psychiatric Psychiatric: memory intact, appropriate mood/affect, intact judgment & insight - Labs CBC & Chem 7: 08/04/19 04:17 08/04/19 04:17 Labs: Abnormal lab results 08/03/19 08/04/19 08/04/19 Range/Units 09:12 04:17 04:17 Hgb 10.6 L (11.8-15.2) gm/dl Hct 32.7 L (35.5-45.6) % Banner % (Auto) 11.2 H (0.0-7.3) % Carbon Dioxide 16 L (22-30) mmol/L BUN 102 H (9-20) mg/dL Creatinine 12.0 H (0.8-1.5) mg/dL Calcium 7.6 L (8.4-10.2) mg/dL Albumin 3.8 L (3.9-5) g/dL Hepatitis C Antibody Reactive A (NonReactive)
[2019-08-04] MEDS ORDERED: hydrALAZINE 20 MG/1 ML INJ IV PRN (14:30)
[2019-08-04 18:29] VITALS: BP 182/94
[2019-08-04] MEDS ORDERED: SODIUM CHLORIDE*PRIMING MACHINE ONLY FOR DIALYSIS MC ONE (18:48)
== END 2019-08-04 20:30 | disposition home or self-care (01) | DRG 640 ==
LOC: ED 00:31 → 4A 04:22
PROVIDERS: ADMIT Internal Medicine; ATTEND Internal Medicine
PROC: 5A1D70Z Performance of Urinary Filtration, Intermittent, Less than 6 Hours Per Day (ICD-10-PCS; principal; 2019-08-03)
DX: E87.70 Fluid overload, unspecified (principal); N18.6 End stage renal disease; E87.2 Acidosis; I12.0 Hypertensive chronic kidney disease with stage 5 chronic kidney disease or end stage renal disease; J81.1 Chronic pulmonary edema; F17.200 Nicotine dependence, unspecified, uncomplicated; I16.0 Hypertensive urgency; F41.1 Generalized anxiety disorder; M32.9 Systemic lupus erythematosus, unspecified; Z91.15 Patient's noncompliance with renal dialysis; Z79.899 Other long term (current) drug therapy; Z82.49 Family history of ischemic heart disease and other diseases of the circulatory system; Z90.49 Acquired absence of other specified parts of digestive tract
CPT/HCPCS: 36415; 71045; 78452; 80053; 80074; 80307; 80320; 81001; 83036; 83690; 84484; 85025; 85610; 85730; 93005; 93010; 93017; G0378; A9502; G0480; J0360; J0500; J1170; J1885; J2405; J2765; J2785; J7030

== ENCOUNTER 2019-09-16 16:22 | Emergency (ER) | payer MEDICAID ==
--- NOTE | 2019-09-16 18:23 | Emergency Department Report ---
Blank Doc - Documentation Documentation: 54-year-old male that presents with chest pain and SOB. PCP sent patient for chronic renal failure and is requesting dialysis. This initial assessment/diagnostic orders/clinical plan/treatment(s) is/are subject to change based on patient's health status, clinical progression and re- assessment by fellow clinical providers in the ED. Further treatment and workup at subsequent clinical providers discretion. Patient/guardians urged not to elope from the ED as their condition may be serious if not clinically assessed and managed. Initial orders include: 1- Patient sent to MAIN ED for further evaluation and treatment 2- labs 3- EKG 4- CXR
[2019-09-16 18:51] LABS: INR 1.64 (0.87-1.13)
[2019-09-16 18:52] LABS: Partial Thromboplastin Time 32.6 Sec. (24.2-36.6)
--- NOTE | 2019-09-16 18:53 | XRay Report ---
CHEST 2 VIEWS INDICATION / CLINICAL INFORMATION: MAIN: Chest Pain; Pt. states his PCP called and told him to go to ER because his "kidneys are shuttin g down, needs dilaysis." Pt. c/o CP. Hx of Lupus and Htn.. COMPARISON: Chest radiograph 08/03/2019 IMPRESSION: Stable cardiomediastinal silhouette with normal heart size. No pleural fluid or pneumothorax. No pulm onary consolidation. Pulmonary vascular markings are prominent, particularly at the apices, suggestin g underlying chronic pulmonary venous hypertension. However, there is no evidence of significant pulm onary edema at this time. Signer Name: Jerome Ramirez MD Signed: 09/16/2019 6:49 PM Workstation Name: [id number]
[2019-09-16 19:06] LABS: Alanine Aminotransferase 22 units/L (7-56); Albumin 4.4 g/dL (3.9-5); BUN/Creatinine Ratio 10; Blood Urea Nitrogen 98 mg/dL (9-20); Calcium 8.9 mg/dL (8.4-10.2); Hemolysis Index 12
[2019-09-16 19:06] LABS: Hematocrit 35.2 % (35.5-45.6); Hemoglobin 11.6 gm/dl (11.8-15.2); Mean Corpuscular HGB Conc 33 % (32-34); Mean Corpuscular Volume 85 fl (84-94); Platelet Count 201 K/mm3 (140-440); Red Blood Count 4.12 M/mm3 (3.65-5.03); Red Cell Distribution Width 15.4 % (13.2-15.2)
--- NOTE | 2019-09-16 20:50 | Emergency Department Report ---
ED General Adult HPI - General Chief complaint: Chest Pain Stated complaint: CHEST PAIN Time Seen by Provider: 09/16/19 18:20 Source: patient Mode of arrival: Ambulatory Limitations: No Limitations - History of Present Illness Initial comments: Mr. Landon is a 54-year-old male with history of SLE, end-stage renal disease, who was told by his tube machine operator on Saturday that he need to go to the emergency department. "My kidneys are shutting down. I need dialysis. He saw his new PCP today. He was told that he has an enlarged heart. He denies any acute pain. He has diffuse body pain which is unchanged from his baseline. He has dialysis vascular access present in his left upper extremity. He underwent 8 months of consistent dialysis 2015. He had a lot of adverse effects including muscle cramps. Consequently he has been unable to endure consistent regular scheduled dialysis. His last hemodialysis session was 2 months ago when he was admitted to the hospital. In August last month, Mr. Landon underwent thallium stress test at this facility. Left ventricular chamber size within normal limits. No demonstrable ischemia. Mild left ventricular systolic dysfunction with EF of 41% -: Gradual, month(s) (several months) Location: head, chest, abdomen, left, right, upper extremity, lower extremity Quality: aching Consistency: constant Improves with: none Worsens with: none Associated Symptoms: denies other symptoms Treatments Prior to Arrival: none - Related Data Previous Rx's Medication Instructions Recorded Last Taken Type calcitrioL [Rocaltrol] 0.25 mcg PO QDAY #30 capsule 03/19/15 Unknown Rx Acetaminophen [Acetaminophen TAB] 650 mg PO Q4H PRN #30 tablet 04/06/18 Unknown Rx Gabapentin 300 mg PO BID #60 capsule 04/06/18 Unknown Rx LORazepam [Ativan] 1 mg PO TID PRN #15 tablet 04/06/18 Unknown Rx Metoprolol [Lopressor TAB] 100 mg PO BID #60 tablet 04/06/18 Unknown Rx Minoxidil [Loniten] 10 mg PO BID #60 tablet 04/06/18 Unknown Rx Sodium Bicarbonate 650 mg PO BID #60 tablet 04/06/18 Unknown Rx oxyCODONE /ACETAMINOPHEN [Percocet 1 tab PO Q6H PRN #20 tablet 04/06/18 Unknown Rx 5/325 mg] Metoprolol [Lopressor TAB] 100 mg PO BID #60 tablet 08/04/19 Unknown Rx Minoxidil [Loniten] 10 mg PO BID #30 tablet 08/04/19 Unknown Rx NIFEdipine XL [Procardia Xl] 60 mg PO BID 30 Days #60 tablet 08/04/19 Unknown Rx cloNIDine [Catapres] 0.1 mg PO Q8HR #90 tablet 08/04/19 Unknown Rx Allergies Allergy/AdvReac Type Severity Reaction Status Date / Time doxycycline Allergy Unknown Verified 09/16/19 18:22 prochlorperazine edisylate Allergy Unknown Verified 09/16/19 18:22 [From Compazine] ED Review of Systems ROS: Stated complaint: CHEST PAIN Other details as noted in HPI Comment: All other systems reviewed and negative Respiratory: denies: cough Cardiovascular: denies: as per HPI Gastrointestinal: denies: abdominal pain, nausea, vomiting ED Past Medical Hx - Past Medical History Previous Medical History?: Yes Hx Hypertension: Yes Hx Heart Attack/AMI: No Hx Congestive Heart Failure: No Hx Diabetes: No Hx Deep Vein Thrombosis: No Hx Pulmonary Embolism: No Hx Liver Disease: No Hx Renal Disease: Yes Hx Sickle Cell Disease: No Hx Arthritis: No Hx Headaches / Migraines: No Hx Seizures: No Hx Kidney Stones: No Hx Asthma: No Hx COPD: No Hx Tuberculosis: No Hx Dementia: No Hx HIV: No Additional medical history: Lupus - Surgical History Past Surgical History?: Yes Hx Coronary Stent: No Hx Open Heart Surgery: No Hx Pacemaker: No Hx Internal Defibrillator: No Hx Cholecystectomy: Yes Hx Appendectomy: No Hx Breast Surgery: No Additional Surgical History: kidney biopsys - Social History Smoking Status: Current Every Day Smoker 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 - Medications Home Medications: Home Medications Medication Instructions Recorded Confirmed Last Taken Type calcitrioL [Rocaltrol] 0.25 mcg PO QDAY #30 capsule 03/19/15 03/31/18 Unknown Rx Acetaminophen [Acetaminophen TAB] 650 mg PO Q4H PRN #30 tablet 04/06/18 Unknown Rx Gabapentin 300 mg PO BID #60 capsule 04/06/18 Unknown Rx LORazepam [Ativan] 1 mg PO TID PRN #15 tablet 04/06/18 Unknown Rx Metoprolol [Lopressor TAB] 100 mg PO BID #60 tablet 04/06/18 Unknown Rx Minoxidil [Loniten] 10 mg PO BID #60 tablet 04/06/18 Unknown Rx Sodium Bicarbonate 650 mg PO BID #60 tablet 04/06/18 Unknown Rx oxyCODONE /ACETAMINOPHEN [Percocet 1 tab PO Q6H PRN #20 tablet 04/06/18 Unknown Rx 5/325 mg] Metoprolol [Lopressor TAB] 100 mg PO BID #60 tablet 08/04/19 Unknown Rx Minoxidil [Loniten] 10 mg PO BID #30 tablet 08/04/19 Unknown Rx NIFEdipine XL [Procardia Xl] 60 mg PO BID 30 Days #60 tablet 08/04/19 Unknown Rx cloNIDine [Catapres] 0.1 mg PO Q8HR #90 tablet 08/04/19 Unknown Rx ED Physical Exam - General Limitations: No Limitations General appearance: alert, in no apparent distress, other (jovial pleasant no acute distress appears comfortable) - Head Head exam: Present: atraumatic, normocephalic - Eye Eye exam: Present: normal appearance - ENT ENT exam: Present: mucous membranes moist - Neck Neck exam: Present: normal inspection, full ROM - Respiratory Respiratory exam: Present: normal lung sounds bilaterally. Absent: respiratory distress, wheezes, rales, rhonchi - Cardiovascular Cardiovascular Exam: Present: regular rate, normal rhythm, normal heart sounds. Absent: systolic murmur, diastolic murmur, rubs, gallop - GI/Abdominal GI/Abdominal exam: Present: soft, normal bowel sounds. Absent: distended, tenderness, guarding, rebound - Rectal Rectal exam: Present: deferred - Extremities Exam Extremities exam: Present: normal inspection, other (left upper arm AV fistula: Positive thrill positive.) - Neurological Exam Neurological exam: Present: alert, oriented X3 - Psychiatric Psychiatric exam: Present: normal affect, normal mood - Skin Skin exam: Present: warm, dry, intact, normal color. Absent: rash ED Course Vital Signs 09/16/19 16:29 Temperature 98.5 F Pulse Rate 108 H Respiratory 16 Rate Blood Pressure 164/118 O2 Sat by Pulse 98 Oximetry ED Medical Decision Making - Lab Data Result diagrams: 09/16/19 18:49 09/16/19 18:25 Laboratory Results - last 24 hr 09/16/19 09/16/19 09/16/19 18:25 18:25 18:49 WBC 6.3 RBC 4.12 Hgb 11.6 L Hct 35.2 L MCV 85 MCH 28 MCHC 33 RDW 15.4 H Plt Count 201 Lymph % (Auto) Garment Supervisor [place] % (Auto) Garment Supervisor Eos % (Auto) Garment Supervisor Baso % (Auto) Garment Supervisor Lymph # Garment Supervisor [place] # Garment Supervisor Eos # Garment Supervisor Baso # Garment Supervisor Seg Neutrophils % Garment Supervisor Seg Neutrophils # Garment Supervisor PT 19.7 H INR 1.64 H APTT 32.6 Sodium 140 Potassium 4.8 Chloride 106.5 Carbon Dioxide 13 L Anion Gap 25 BUN 98 H Creatinine 10.0 H Estimated GFR 7 BUN/Creatinine Ratio 10 Glucose 126 H Calcium 8.9 Total Bilirubin 0.30 AST 13 ALT 22 Alkaline Phosphatase 104 Troponin T < 0.010 Total Protein 8.2 Albumin 4.4 Albumin/Globulin Ratio 1.2 - EKG Data 09/16/19 20:47 EKG obtained 1832 Normal sinus rhythm rate 90 beats a minute normal axis normal intervals no ST-T signs of ischemia - Radiology Data Radiology results: report reviewed Chest x-ray: No acute findings, - Medical Decision Making Mr. Landon has history of end-stage renal disease. He has yet to be consistent with dialysis. I spoke with his personal tube machine operator who is very fam iliar with Mr. Landon. Dr. Poe explained that he has encouraged Mr. Landon to undergo consistent dialysis. He had planned to arrange for outpatient dialysis. However it appears that Mr. Landon is conflicted regarding this commitment. I and Dr. Poe agreed that Mr. Landon is stable for discharge. He does not currently have any chest pain. He was concerned for a large heart after consultation with his new receiving weigher today. I provided referral to mixing roll operator. Critical care attestation.: If time is entered above; I have spent that time in minutes in the direct care of this critically ill patient, excluding procedure time. ED Disposition Clinical Impression: Systemic lupus erythematosus, Chronic kidney disease, stage IV (severe) Disposition: DC- TO HOME OR SELFCARE Is pt being admited?: No Does the pt Need Aspirin: No Condition: Stable Additional Instructions: Please contact Dr. Poe's office tomorrow for further arrangements. Referrals: KAROLINA NGUYỄN MD [Staff Physician] - 3-5 Days
[2019-09-17 06:01] VITALS: BP 160/92
== END 2019-09-16 21:15 | disposition home or self-care (01) ==
LOC: ED 16:22
DX: M32.9 Systemic lupus erythematosus, unspecified (principal); I12.9 Hypertensive chronic kidney disease with stage 1 through stage 4 chronic kidney disease, or unspecified chronic kidney disease; N18.4 Chronic kidney disease, stage 4 (severe); F17.200 Nicotine dependence, unspecified, uncomplicated; Z79.899 Other long term (current) drug therapy; Z88.8 Allergy status to other drugs, medicaments and biological substances
CPT/HCPCS: 36415; 71046; 80053; 84484; 85025; 85610; 85730; 93005; 93010

== ENCOUNTER 2019-10-25 01:13 | Emergency (ER) | payer MEDICAID ==
--- NOTE | 2019-10-25 01:34 | Emergency Department Report ---
ED General Adult HPI - General Stated complaint: BODYACHES Time Seen by Provider: 10/25/19 01:29 Source: patient, old records reviewed Mode of arrival: Ambulatory Limitations: No Limitations - History of Present Illness Initial comments: CC: "I need dialysis." HPI: Mr. Landon is a 54 yo male with hx of ESRD, lupus, HTN who presents with need for dialysis. He arrived per EMS. He started dialysis 2 weeks ago. Has not been to dialysis since. I evaluated Mr. Landon last month. He has been negotiating with Dr. Poe the optimal time to initiate [facility] dialysis care. He is still yet unclear how and when he is supposed to attend his dialysis session. He has diffuse body pain. Elevated blood pressure noted by EMS. Has LUE AV fistula. Had stent placed in fistula 2 weeks ago. -: Gradual, week(s) (2) Location: left, right, upper extremity, lower extremity Quality: aching Consistency: constant Improves with: none Worsens with: none Associated Symptoms: malaise, other (body aches) - Related Data Previous Rx's Medication Instructions Recorded Last Taken Type calcitrioL [Rocaltrol] 0.25 mcg PO QDAY #30 capsule 03/19/15 Unknown Rx Acetaminophen [Acetaminophen TAB] 650 mg PO Q4H PRN #30 tablet 04/06/18 Unknown Rx Gabapentin 300 mg PO BID #60 capsule 04/06/18 Unknown Rx LORazepam [Ativan] 1 mg PO TID PRN #15 tablet 04/06/18 Unknown Rx Metoprolol [Lopressor TAB] 100 mg PO BID #60 tablet 04/06/18 Unknown Rx Sodium Bicarbonate 650 mg PO BID #60 tablet 04/06/18 Unknown Rx minoxidiL [Loniten] 10 mg PO BID #60 tablet 04/06/18 Unknown Rx oxyCODONE /ACETAMINOPHEN [Percocet 1 tab PO Q6H PRN #20 tablet 04/06/18 Unknown Rx 5/325 mg] Metoprolol [Lopressor TAB] 100 mg PO BID #60 tablet 08/04/19 Unknown Rx NIFEdipine XL [Procardia Xl] 60 mg PO BID 30 Days #60 tablet 08/04/19 Unknown Rx cloNIDine [Catapres] 0.1 mg PO Q8HR #90 tablet 08/04/19 Unknown Rx minoxidiL [Loniten] 10 mg PO BID #30 tablet 08/04/19 Unknown Rx oxyCODONE /ACETAMINOPHEN [Percocet 1 tab PO Q6HR PRN #10 tablet 10/25/19 Unknown Rx 5/325] Allergies Allergy/AdvReac Type Severity Reaction Status Date / Time doxycycline Allergy Unknown Verified 09/16/19 18:22 prochlorperazine edisylate Allergy Unknown Verified 09/16/19 18:22 [From Compazine] ED Review of Systems ROS: Stated complaint: BODYACHES Other details as noted in HPI Comment: All other systems reviewed and negative Constitutional: malaise. denies: chills, fever Respiratory: denies: shortness of breath Cardiovascular: denies: chest pain Gastrointestinal: denies: abdominal pain, nausea, vomiting Musculoskeletal: myalgia ED Past Medical Hx - Past Medical History Previous Medical History?: Yes Hx Hypertension: Yes Hx Heart Attack/AMI: No Hx Congestive Heart Failure: No Hx Diabetes: No Hx Deep Vein Thrombosis: No Hx Pulmonary Embolism: No Hx Liver Disease: No Hx Renal Disease: Yes Hx Sickle Cell Disease: No Hx Arthritis: No Hx Headaches / Migraines: No Hx Seizures: No Hx Kidney Stones: No Hx Asthma: No Hx COPD: No Hx Tuberculosis: No Hx Dementia: No Hx HIV: No Additional medical history: Lupus - Surgical History Hx Coronary Stent: No Hx Open Heart Surgery: No Hx Pacemaker: No Hx Internal Defibrillator: No Hx Cholecystectomy: Yes Hx Appendectomy: No Hx Breast Surgery: No Additional Surgical History: kidney biopsys - Social History Smoking Status: Current Every Day Smoker - Medications Home Medications: Home Medications Medication Instructions Recorded Confirmed Last Taken Type calcitrioL [Rocaltrol] 0.25 mcg PO QDAY #30 capsule 03/19/15 03/31/18 Unknown Rx Acetaminophen [Acetaminophen TAB] 650 mg PO Q4H PRN #30 tablet 04/06/18 Unknown Rx Gabapentin 300 mg PO BID #60 capsule 04/06/18 Unknown Rx LORazepam [Ativan] 1 mg PO TID PRN #15 tablet 04/06/18 Unknown Rx Metoprolol [Lopressor TAB] 100 mg PO BID #60 tablet 04/06/18 Unknown Rx Sodium Bicarbonate 650 mg PO BID #60 tablet 04/06/18 Unknown Rx minoxidiL [Loniten] 10 mg PO BID #60 tablet 04/06/18 Unknown Rx oxyCODONE /ACETAMINOPHEN [Percocet 1 tab PO Q6H PRN #20 tablet 04/06/18 Unknown Rx 5/325 mg] Metoprolol [Lopressor TAB] 100 mg PO BID #60 tablet 08/04/19 Unknown Rx NIFEdipine XL [Procardia Xl] 60 mg PO BID 30 Days #60 tablet 08/04/19 Unknown Rx cloNIDine [Catapres] 0.1 mg PO Q8HR #90 tablet 08/04/19 Unknown Rx minoxidiL [Loniten] 10 mg PO BID #30 tablet 08/04/19 Unknown Rx oxyCODONE /ACETAMINOPHEN [Percocet 1 tab PO Q6HR PRN #10 tablet 10/25/19 Unknown Rx 5/325] ED Physical Exam - General General appearance: alert, in no apparent distress, other (no acute distress no work of breathing) - Head Head exam: Present: atraumatic, normocephalic - Eye Eye exam: Present: normal appearance - ENT ENT exam: Present: mucous membranes moist - Neck Neck exam: Present: normal inspection, full ROM - Respiratory Respiratory exam: Present: normal lung sounds bilaterally. Absent: respiratory distress, wheezes, rales, rhonchi - Cardiovascular Cardiovascular Exam: Present: regular rate, normal rhythm, normal heart sounds. Absent: rubs, gallop - GI/Abdominal GI/Abdominal exam: Present: soft, normal bowel sounds. Absent: distended, tenderness, guarding, rebound - Rectal Rectal exam: Present: deferred - Extremities Exam Extremities exam: Present: normal inspection - Neurological Exam Neurological exam: Present: alert, oriented X3 - Psychiatric Psychiatric exam: Present: normal affect, normal mood - Skin Skin exam: Present: warm, dry, intact, ecchymosis, other (LUE AV fistula at bicep with ecchymosis no purulence intact skin no fluctuance). Absent: rash ED Course Vital Signs 10/25/19 10/25/19 10/25/19 01:34 01:36 01:38 Temperature 99.2 F 99.2 F Pulse Rate 102 H 104 H Respiratory 12 12 12 Rate Blood Pressure 202/124 Blood Pressure 202/124 [Right] O2 Sat by Pulse 98 98 98 Oximetry 10/25/19 01:48 Temperature Pulse Rate 94 H Respiratory Rate Blood Pressure 202/124 Blood Pressure [Right] O2 Sat by Pulse Oximetry ED Medical Decision Making - Lab Data Result diagrams: 10/25/19 01:43 10/25/19 01:43 - Medical Decision Making 1. body aches with persistent left leg pain swelling no indication of infection DVT or trauma possible lupus flare 2. hypertensive urgency without end organ damage repeat BP 168/109 3. ESRD no urgent need for dialysis referred to [facility] s[facility] Dr. Poe rx: percocent Critical care attestation.: If time is entered above; I have spent that time in minutes in the direct care of this critically ill patient, excluding procedure time. ED Disposition Clinical Impression: Systemic lupus erythematosus, ESRD (end-stage renal disease) due to SLE, Left leg pain Disposition: TO HOME OR SELFCARE Is pt being admited?: No Does the pt Need Aspirin: No Condition: Stable Prescriptions: oxyCODONE /ACETAMINOPHEN [Percocet 5/325] 1 tab PO Q6HR PRN #10 tablet PRN Reason: Pain Referrals: LOTTIE GARCIA MD [Staff Physician] - 3-5 Days RAGHAVENDRA POE MD [Staff Physician] - 3-5 Days
[2019-10-25 01:35] VITALS: BP 202/124
[2019-10-25] MEDS: oxyCODONE /ACETAMINOPHEN 5-325MG TAB PO ONE ×2 (01:45→01:49)
--- NOTE | 2019-10-25 01:47 | XRay Report ---
CHEST 1 VIEW INDICATION: malaise esrd. COMPARISON: 09/16/2019 FINDINGS: Support devices: None. Heart: Normal. Lungs/Pleura: No acute pulmonary or pleural findings. IMPRESSION: 1. No acute findings. Signer Name: Geo Brown MD Signed: 10/25/2019 1:43 AM Workstation Name: [id number]
[2019-10-25 01:59] LABS: Basophils # (Auto) 0.1 K/mm3 (0.0-0.1); Basophils % (Auto) 0.8 % (0.0-1.8); Eosinophils # (Auto) 0.2 K/mm3 (0.0-0.4); Hematocrit 32.9 % (35.5-45.6); Hemoglobin 10.8 gm/dl (11.8-15.2); Lymphocytes # (Auto) 1.5 K/mm3 (1.2-5.4); Lymphocytes % (Auto) 16.1 % (13.4-35.0); Mean Corpuscular HGB Conc 33 % (32-34); Mean Corpuscular Volume 85 fl (84-94); Monocytes # (Auto) 0.8 K/mm3 (0.0-0.8); Monocytes % (Auto) 8.9 % (0.0-7.3); Platelet Count 187 K/mm3 (140-440); Red Blood Count 3.85 M/mm3 (3.65-5.03); Red Cell Distribution Width 14.5 % (13.2-15.2)
[2019-10-25 02:13] LABS: Calcium 7.8 mg/dL (8.4-10.2)
== END 2019-10-25 02:35 | disposition home or self-care (01) ==
LOC: ED 01:13
DX: I12.0 Hypertensive chronic kidney disease with stage 5 chronic kidney disease or end stage renal disease (principal); N18.6 End stage renal disease; M79.605 Pain in left leg; M32.9 Systemic lupus erythematosus, unspecified; F17.200 Nicotine dependence, unspecified, uncomplicated; Z99.2 Dependence on renal dialysis; Z79.899 Other long term (current) drug therapy; Z90.49 Acquired absence of other specified parts of digestive tract; Z98.890 Other specified postprocedural states; Z88.1 Allergy status to other antibiotic agents; Z88.8 Allergy status to other drugs, medicaments and biological substances
CPT/HCPCS: 36415; 71045; 80048; 85025

== ENCOUNTER 2019-12-12 18:10 | Emergency (ER) | payer MEDICAID ==
[2019-12-12] MEDS ORDERED: HYDROcodone/ACETAMINOPHEN 5-325 MG TAB PO ONE (18:32)
--- NOTE | 2019-12-12 18:38 | Emergency Department Report ---
HPI - General Chief Complaint: Chest Pain Time Seen by Provider: 12/12/19 18:22 - HPI HPI: Room 3 The patient is a 54-year-old male present with chief complaint of hemoptysis. The patient states his hemoptysis for 1 day. Patient states he has had nausea vomiting without blood for the past 4 days. Patient complains of pain in all of his joints for 1 day. Patient denies fever or rhinorrhea. Patient denies shortness of breath or recent flights/long car trips. Patient denies any sick contacts but states he has been in contact with another person (who is asymptomatic) who r d intern has been in contact with a second person who is covid positive. ED Past Medical Hx - Past Medical History Hx Hypertension: Yes Hx Renal Disease: Yes (dialysis tue, thus and sat) Additional medical history: Lupus - Surgical History Hx Cholecystectomy: Yes Additional Surgical History: kidney biopsys, left upper extremity fistula - Family History Family history: no significant - Social History Smoking Status: Current Every Day Smoker (1 pack/day) Substance Use Type: None (Denies illicit drug use) - Medications Home Medications: Home Medications Medication Instructions Recorded Confirmed Last Taken Type calcitrioL [Rocaltrol] 0.25 mcg PO QDAY #30 capsule 03/19/15 03/31/18 Unknown Rx Acetaminophen [Acetaminophen TAB] 650 mg PO Q4H PRN #30 tablet 04/06/18 Unknown Rx Gabapentin 300 mg PO BID #60 capsule 04/06/18 Unknown Rx LORazepam [Ativan] 1 mg PO TID PRN #15 tablet 04/06/18 Unknown Rx Metoprolol [Lopressor TAB] 100 mg PO BID #60 tablet 04/06/18 Unknown Rx Sodium Bicarbonate 650 mg PO BID #60 tablet 04/06/18 Unknown Rx minoxidiL [Loniten] 10 mg PO BID #60 tablet 04/06/18 Unknown Rx oxyCODONE /ACETAMINOPHEN [Percocet 1 tab PO Q6H PRN #20 tablet 04/06/18 Unknown Rx 5/325 mg] Metoprolol [Lopressor TAB] 100 mg PO BID #60 tablet 08/04/19 Unknown Rx NIFEdipine XL [Procardia Xl] 60 mg PO BID 30 Days #60 tablet 08/04/19 Unknown Rx cloNIDine [Catapres] 0.1 mg PO Q8HR #90 tablet 08/04/19 Unknown Rx minoxidiL [Loniten] 10 mg PO BID #30 tablet 08/04/19 Unknown Rx oxyCODONE /ACETAMINOPHEN [Percocet 1 tab PO Q6HR PRN #10 tablet 10/25/19 Unknown Rx 5/325] Azithromycin [Zithromax Z-KAI] 0 mg PO DAILY #6 tab 12/12/19 Unknown Rx HYDROcodone/APAP 5-325 [[place] 1 each PO Q6HR PRN #10 tablet 12/12/19 Unknown Rx 5/325] ED Review of Systems ROS: Stated complaint: COUGHING UP BLOOD Other details as noted in HPI Constitutional: denies: fever Eyes: denies: eye pain ENT: denies: throat pain Respiratory: cough (Hemoptysis). denies: shortness of breath Cardiovascular: denies: chest pain Endocrine: no symptoms reported Gastrointestinal: nausea, vomiting Genitourinary: denies: dysuria Musculoskeletal: arthralgia Neurological: denies: headache Physical Exam - Physical Exam Physical Exam: GENERAL: The patient is well-developed well-nourished male sitting on stretcher not appearing to be in acute distress. [] HEENT: Normocephalic. Atraumatic. Extraocular motions are intact. Patient has moist mucous membranes. NECK: Supple. Trachea midline CHEST/LUNGS: Clear to auscultation. There is no respiratory distress noted. HEART/CARDIOVASCULAR: Regular. There is no tachycardia. There is no gallop rub or murmur. ABDOMEN: Abdomen is soft, nontender. Patient has normal bowel sounds. There is no abdominal distention. SKIN: There is no rash. There is no edema. There is no diaphoresis. NEURO: The patient is awake, alert, and oriented. The patient is cooperative. The patient has normal speech MUSCULOSKELETAL: There is no evidence of acute injury. ED Medical Decision Making - Lab Data Result diagrams: 12/12/19 18:35 12/12/19 18:35 Laboratory Tests 12/12/19 12/12/19 12/12/19 18:35 18:35 18:35 WBC 5.9 RBC 3.90 Hgb 11.0 L Hct 34.2 L MCV 88 MCH 28 MCHC 32 RDW 15.9 H Plt Count 155 Lymph % (Auto) Marine Electronics Repairer [place] % (Auto) Marine Electronics Repairer Eos % (Auto) Marine Electronics Repairer Baso % (Auto) Marine Electronics Repairer Lymph # Marine Electronics Repairer [place] # Marine Electronics Repairer Eos # Marine Electronics Repairer Baso # Marine Electronics Repairer Seg Neutrophils % Marine Electronics Repairer Seg Neutrophils # Marine Electronics Repairer PT 19.1 H INR 1.58 H APTT 32.7 D-Dimer Sodium 138 Potassium 4.6 Chloride 101.6 Carbon Dioxide 15 L Anion Gap 26 BUN 77 H Creatinine 11.5 H Estimated GFR 6 BUN/Creatinine Ratio 7 Glucose 85 Calcium 8.8 Total Bilirubin 0.30 AST 14 ALT 20 Alkaline Phosphatase 102 Total Protein 7.8 Albumin 4.4 Albumin/Globulin Ratio 1.3 12/12/19 19:42 WBC RBC Hgb Hct MCV MCH MCHC RDW Plt Count Lymph % (Auto) [place] % (Auto) Eos % (Auto) Baso % (Auto) Lymph # [place] # Eos # Baso # Seg Neutrophils % Seg Neutrophils # PT INR APTT D-Dimer 199.5 Sodium Potassium Chloride Carbon Dioxide Anion Gap BUN Creatinine Estimated GFR BUN/Creatinine Ratio Glucose Calcium Total Bilirubin AST ALT Alkaline Phosphatase Total Protein Albumin Albumin/Globulin Ratio - Radiology Data Radiology results: report reviewed (Chest x-ray), image reviewed (Chest x-ray) interpreted by me: Chest x-ray-no focal infiltrates, no pneumothorax Findings [address] [address] XRay Report Signed Patient: AYANNA DEJESUS MR#: [id number] : 1965 Acct:[id number] Age/Sex: 54 / M ADM Date: 12/12/19 Loc: ED Attending Dr: Ordering Physician: AMA TORO MD Date of Service: 12/12/19 Procedure(s): XR chest routine 2V Accession Number(s): [id number] cc: AMA TORO MD Fluoro Time In Minutes: CHEST 2 VIEWS, 12/12/2019 6:04 PM INDICATION: Hemoptysis COMPARISON: Chest radiograph, 10/25/2019 FINDINGS: Support devices: None Heart: The cardiac silhouette appears mildly enlarged. Lungs/pleura: The lungs are clear of focal airspace disease or significant pleural effusion. Additional findings: There are moderate multilevel degenerative changes of the thoracic spine. IMPRESSION: 1. Mild enlargement of the cardiac silhouette. Signer Name: Christine Dill MD Signed: 12/12/2019 7:07 PM Workstation Name: [id number] Transcribed By: EB Dictated By: Christine Dill MD Electronically Authenticated By: Christine Dill MD Signed Date/Time: 12/12/191906 DD/ 04 TD/TT: - Differential Diagnosis Bronchitis, pneumonia, tuberculosis, Critical care attestation.: If time is entered above; I have spent that time in minutes in the direct care of this critically ill patient, excluding procedure time. ED Disposition Clinical Impression: Hemoptysis, Bronchitis Disposition: - TO HOME OR SELFCARE Is pt being admited?: No Does the pt Need Aspirin: No Condition: Stable Instructions: Chronic Bronchitis (ED) Additional Instructions: Return to the emergency department should you develop worsening symptoms, inability to tolerate food or liquids, high fever or any other concerns Prescriptions: HYDROcodone/APAP 5-325 [[place] 5/325] 1 each PO Q6HR PRN #10 tablet PRN Reason: Pain Azithromycin [Zithromax Z-KAI] 0 mg PO DAILY #6 tab Referrals: RUFINA ALEJANDRA MD [Staff Physician] - 2-3 Days (Dr Alejandra is a egg separator. Please follow-up with him for further evaluation) RAMY GONZALES MD [Staff Physician] - 3-5 Days (Dr Gonzales is a primary physician. Please follow-up with him to be established as a patient) Time of Disposition: 20:05
[2019-12-12 19:00] LABS: Hematocrit 34.2 % (35.5-45.6); Mean Corpuscular HGB Conc 32 % (32-34); Mean Corpuscular Volume 88 fl (84-94); Platelet Count 155 K/mm3 (140-440); Red Cell Distribution Width 15.9 % (13.2-15.2)
[2019-12-12 19:03] LABS: INR 1.58 (0.87-1.13)
[2019-12-12 19:04] LABS: Partial Thromboplastin Time 32.7 Sec. (24.2-36.6)
[2019-12-12 19:07] LABS: Albumin 4.4 g/dL (3.9-5); Calcium 8.8 mg/dL (8.4-10.2)
--- NOTE | 2019-12-12 19:11 | XRay Report ---
CHEST 2 VIEWS, 12/12/2019 6:04 PM INDICATION: Hemoptysis COMPARISON: Chest radiograph, 10/25/2019 FINDINGS: Support devices: None Heart: The cardiac silhouette appears mildly enlarged. Lungs/pleura: The lungs are clear of focal airspace disease or significant pleural effusion. Additional findings: There are moderate multilevel degenerative changes of the thoracic spine. IMPRESSION: 1. Mild enlargement of the cardiac silhouette. Signer Name: Christine Dill MD Signed: 12/12/2019 7:07 PM Workstation Name: [id number]
[2019-12-12 20:53] VITALS: BP 189/88
== END 2019-12-12 20:53 | disposition home or self-care (01) ==
LOC: ED 18:10
DX: R04.2 Hemoptysis (principal); J40 Bronchitis, not specified as acute or chronic; I10 Essential (primary) hypertension; F17.200 Nicotine dependence, unspecified, uncomplicated; Z87.448 Personal history of other diseases of urinary system; Z98.890 Other specified postprocedural states; Z79.2 Long term (current) use of antibiotics; Z79.899 Other long term (current) drug therapy; Z88.8 Allergy status to other drugs, medicaments and biological substances
CPT/HCPCS: 36415; 71046; 80053; 85025; 85379; 85610; 85730

== ENCOUNTER 2021-01-19 11:56 | Inpatient (IN) | payer MEDICAID ==
--- NOTE | 2021-01-19 14:11 | Event Note ---
ED Screening Note ED Screening Note: states he presents for dialysis states he has not had dialysis since 01/06/2021 states he does not have a dialysis clinic that he goes to states he has been on dialysis for 6 years This initial assessment/diagnostic orders/clinical plan/treatment(s) is/are subject to change based on patients health status, clinical progression and re- assessment by fellow clinical providers in the ED. Further treatment and workup at subsequent clinical providers discretion. Patient/guardian urged not to elope from the ED as their condition may be serious if not clinically assessed and managed. Initial orders include: labs
[2021-01-19 15:10] LABS: Hematocrit 27.1 % (35.5-45.6); Hemoglobin 8.6 gm/dl (11.8-15.2); Mean Corpuscular HGB Conc 32 % (32-34); Mean Corpuscular Volume 85 fl (84-94); Platelet Count 179 K/mm3 (140-440); Red Blood Count 3.18 M/mm3 (3.65-5.03); Red Cell Distribution Width 15.5 % (13.2-15.2)
[2021-01-19 15:23] LABS: Calcium 7.5 mg/dL (8.4-10.2)
[2021-01-19 16:45] LABS: Total Cells Counted 100
[2021-01-19 16:46] LABS: RBC Morphology Normal
--- NOTE | 2021-01-20 00:40 | Emergency Department Report ---
ED General Adult HPI - General Chief complaint: Medical Clearance Stated complaint: DIALYSIS PUI?: No Time Seen by Provider: 01/20/21 00:25 Source: patient Mode of arrival: Ambulatory Limitations: No Limitations - History of Present Illness Initial comments: Patient is a 55-year-old male who presents emergency room with complaints of needing dialysis. Patient states she has not had dialysis for 2 weeks. Patient states he has missed 4 5 dialysis treatments. Patient states he gets dialysis 3 days a week. Patient states his dialysis treatments are 4 hours each treatment. Patient states he was recently dropped from his dialysis clinic for noncompliance. Patient states his wax pattern assembler Dr. Poe has discharged him from his practice. Patient denies chest pain. Patient denies shortness of breath. Patient states he needs dialysis. Patient denies any other symptoms. Patient denies recent travel. Patient denies recent international travel. Patient denies exposure to the novel coronavirus. Patient denies sick contacts. Patient denies fever and chills. Patient denies cough. Patient denies diarrhea. Patient denies coming in contact with anybody with symptoms of the novel coronavirus. -: Gradual Consistency: constant Improves with: none Worsens with: none Associated Symptoms: denies other symptoms - Related Data Previous Rx's Medication Instructions Recorded Last Taken Type Acetaminophen [Acetaminophen TAB] 650 mg PO Q4H PRN #30 tablet 04/06/18 Unknown Rx Aspirin EC [Halfprin EC] 81 mg PO QDAY #30 tablet. 11/10/20 Unknown Rx Gabapentin 300 mg PO BID #60 capsule 11/10/20 Unknown Rx Metoprolol [Lopressor TAB] 100 mg PO BID #60 tablet 11/10/20 Unknown Rx NIFEdipine XL [Procardia Xl] 60 mg PO BID 30 Days #60 tablet 11/10/20 Unknown Rx Sodium Bicarbonate 650 mg PO BID #60 tablet 11/10/20 Unknown Rx calcitrioL [Rocaltrol] 0.25 mcg PO QDAY #30 capsule 11/10/20 Unknown Rx cloNIDine [Catapres] 0.1 mg PO Q8HR #90 tablet 11/10/20 Unknown Rx minoxidiL [Loniten] 10 mg PO BID #60 tablet 11/10/20 Unknown Rx Allergies Allergy/AdvReac Type Severity Reaction Status Date / Time doxycycline Allergy Unknown Verified 11/08/20 16:05 prochlorperazine edisylate Allergy Unknown Verified 11/08/20 16:05 [From Compazine] ED Review of Systems ROS: Stated complaint: DIALYSIS Other details as noted in HPI Constitutional: denies: chills, fever Eyes: denies: eye pain, eye discharge, vision change ENT: denies: ear pain, throat pain Respiratory: denies: cough, shortness of breath, wheezing Cardiovascular: denies: chest pain, palpitations Endocrine: no symptoms reported Gastrointestinal: denies: abdominal pain, nausea, diarrhea Genitourinary: denies: urgency, dysuria Musculoskeletal: denies: back pain, joint swelling, arthralgia Skin: denies: rash, lesions Neurological: denies: headache, weakness, paresthesias Psychiatric: denies: anxiety, depression Hematological/Lymphatic: denies: easy bleeding, easy bruising ED Past Medical Hx - Past Medical History Previous Medical History?: Yes Hx Hypertension: Yes Hx Heart Attack/AMI: No Hx Congestive Heart Failure: No Hx Diabetes: No Hx Deep Vein Thrombosis: No Hx Pulmonary Embolism: No Hx Liver Disease: No Hx Renal Disease: Yes (Dialysis) Hx Sickle Cell Disease: No Hx Arthritis: No Hx Headaches / Migraines: No Hx Seizures: No Hx Kidney Stones: No Hx Asthma: No Hx COPD: No Hx Tuberculosis: No Hx Dementia: No Hx HIV: No Additional medical history: Lupus - Surgical History Past Surgical History?: Yes Hx Coronary Stent: No Hx Open Heart Surgery: No Hx Pacemaker: No Hx Internal Defibrillator: No Hx Cholecystectomy: Yes Hx Appendectomy: No Hx Breast Surgery: No Additional Surgical History: kidney biopsys, left upper extremity fistula - Family History Family history: no significant - Social History Smoking Status: Current Every Day Smoker Substance Use Type: None - Medications Home Medications: Home Medications Medication Instructions Recorded Confirmed Last Taken Type Acetaminophen [Acetaminophen TAB] 650 mg PO Q4H PRN #30 tablet 04/06/18 02/18/20 Unknown Rx Aspirin EC [Halfprin EC] 81 mg PO QDAY #30 tablet. 11/10/20 Unknown Rx Gabapentin 300 mg PO BID #60 capsule 11/10/20 Unknown Rx Metoprolol [Lopressor TAB] 100 mg PO BID #60 tablet 11/10/20 Unknown Rx NIFEdipine XL [Procardia Xl] 60 mg PO BID 30 Days #60 tablet 11/10/20 Unknown Rx Sodium Bicarbonate 650 mg PO BID #60 tablet 11/10/20 Unknown Rx calcitrioL [Rocaltrol] 0.25 mcg PO QDAY #30 capsule 11/10/20 Unknown Rx cloNIDine [Catapres] 0.1 mg PO Q8HR #90 tablet 11/10/20 Unknown Rx minoxidiL [Loniten] 10 mg PO BID #60 tablet 11/10/20 Unknown Rx ED Physical Exam - General Limitations: No Limitations General appearance: alert, in no apparent distress - Head Head exam: Present: atraumatic, normocephalic - Eye Eye exam: Present: normal appearance - ENT ENT exam: Present: mucous membranes moist - Neck Neck exam: Present: normal inspection - Respiratory Respiratory exam: Present: normal lung sounds bilaterally. Absent: respiratory distress - Cardiovascular Cardiovascular Exam: Present: regular rate, normal rhythm. Absent: systolic murmur, diastolic murmur, rubs, gallop - GI/Abdominal GI/Abdominal exam: Present: soft, normal bowel sounds. Absent: distended, tenderness, guarding - Rectal Rectal exam: Present: deferred - Extremities Exam Extremities exam: Present: normal inspection - Back Exam Back exam: Present: normal inspection - Neurological Exam Neurological exam: Present: alert, oriented X3 - Psychiatric Psychiatric exam: Present: normal affect, normal mood - Skin Skin exam: Present: warm, dry, intact, normal color. Absent: rash ED Course Vital Signs 01/19/21 13:06 Temperature 98.5 F Pulse Rate 89 Respiratory 20 Rate Blood Pressure 180/98 [Right] O2 Sat by Pulse 100 Oximetry - Reevaluation(s) Reevaluation #1: I discussed all results with patient. I discussed plan of care with patient. Patient agrees with plan of care and admission. Patient to be admitted to the hospitalist service. 01/20/21 00:59 - Consultations Consultation #1: I discussed the case with Dr. Eubanks, nephrology. Dr. Eubanks recommends admission to the hospital service and she will dialyze the patient in the morning. 01/20/21 00:56 Consultation #2: Hospitalist consulted for admission. Hospitalist to admit patient. 01/20/21 00:58 ED Medical Decision Making - Lab Data Result diagrams: 01/19/21 14:48 01/19/21 14:48 - Medical Decision Making Patient is a 55-year-old male who presents with dialysis. Patient has missed 4- 5 outpatient sessions. Patient cannot appear to go back to his outpatient session. To review, the patient has been disc dismissed from the practice and the patient has missed too many sessions. Patient will require inpatient dialysis. I consulted nephrology and the wax pattern assembler recommends dialysis in the morning. Technology Applications Teacher also recommends admission to the hospitalist group. Patient had labs done patient's labs are consistent with end-stage renal disease, patient's potassium is normal. Patient is not require emergent dialysis. Patient admitted to the hospital service for further evaluation treatment. Critical care time documented due to the multiple reassessments, prolonged time at the bedside, interpretation of diagnostics and labs and discussion with consultants. - Differential Diagnosis End-stage renal disease, noncompliance, needing HD Critical Care Time: Yes Critical care time in (mins) excluding proc time.: 35 Critical care attestation.: If time is entered above; I have spent that time in minutes in the direct care of this critically ill patient, excluding procedure time. Critical Care Time: 35 minutes ED Disposition Clinical Impression: ESRD (end stage renal disease) on dialysis, ESRD needing dialysis, Noncomplian ce of patient with renal dialysis Disposition: OP ADMIT IP TO THIS HOSP Is pt being admited?: Yes Does the pt Need Aspirin: No Condition: Critical Time of Disposition: 01:00
[2021-01-20] MEDS ORDERED: ONDANSETRON 4 MG/2 ML INJ IV PRN (01:34)
[2021-01-20] MEDS ORDERED: ALBUTEROL 2.5 MG/3 ML NEBU IH PRN (01:34)
--- NOTE | 2021-01-20 01:41 | History and Physical Report ---
History of Present Illness Date of examination: 01/20/21 Date of admission: 01/20/21 00:57 Chief complaint: Missed hemodialysis History of present illness: 55-year-old male with past medical history of hypertension end-stage renal disease on dialysis was brought to the emergency room because patient missed dialysis. Patient states she has not had dialysis for 2 weeks. Patient states he has missed 4 5 dialysis treatments. Patient states he gets dialysis 3 days a week. Patient states his dialysis treatments are 4 hours each treatment. Patient states he was recently dropped from his dialysis clinic for noncompliance. Patient states his sponge buffer Dr. Poe has discharged him from his practice. Patient denies chest pain. Patient denies shortness of breath. Patient states he needs dialysis. Patient denies any other symptoms. In the emergency room patient BUN is 90 creatinine is 11.1 and bicarb is 19 Past History Past Medical History: hypertension, renal failure, other (Lupus) Medications and Allergies Allergies Allergy/AdvReac Type Severity Reaction Status Date / Time doxycycline Allergy Unknown Verified 11/08/20 16:05 prochlorperazine edisylate Allergy Unknown Verified 11/08/20 16:05 [From Compazine] Home Medications Medication Instructions Recorded Confirmed Last Taken Type Acetaminophen [Acetaminophen TAB] 650 mg PO Q4H PRN #30 tablet 04/06/18 02/18/20 Unknown Rx Aspirin EC [Halfprin EC] 81 mg PO QDAY #30 tablet. 11/10/20 Unknown Rx Gabapentin 300 mg PO BID #60 capsule 11/10/20 Unknown Rx Metoprolol [Lopressor TAB] 100 mg PO BID #60 tablet 11/10/20 Unknown Rx NIFEdipine XL [Procardia Xl] 60 mg PO BID 30 Days #60 tablet 11/10/20 Unknown Rx Sodium Bicarbonate 650 mg PO BID #60 tablet 11/10/20 Unknown Rx calcitrioL [Rocaltrol] 0.25 mcg PO QDAY #30 capsule 11/10/20 Unknown Rx cloNIDine [Catapres] 0.1 mg PO Q8HR #90 tablet 11/10/20 Unknown Rx minoxidiL [Loniten] 10 mg PO BID #60 tablet 11/10/20 Unknown Rx Active Meds: Active Medications Acetaminophen (Acetaminophen 325 Mg Tab) 650 mg PO Q4H PRN PRN Reason: Pain MILD(1-3)/Fever >100.5/MCDONOUGH Ondansetron HCl (Ondansetron 4 Mg/2 Ml Inj) 4 mg IV Q8H PRN PRN Reason: Nausea And Vomiting Sodium Chloride (Sodium Chloride 0.9% 10 Ml Flush Syringe) 10 ml IV BID KELLY Exam - Constitutional Vitals: Temp Pulse Resp BP Pulse Ox 98.5 F 89 20 180/98 100 01/19/21 13:06 01/19/21 13:06 01/19/21 13:06 01/19/21 13:06 01/19/21 13:06 General appearance: Present: no acute distress, well-nourished - EENT Eyes: Present: PERRL ENT: hearing intact, clear oral mucosa - Neck Neck: Present: supple, normal ROM - Respiratory Respiratory effort: normal Respiratory: bilateral: CTA - Cardiovascular Heart Sounds: Present: S1 & S2. Absent: rub, click - Extremities Extremities: pulses symmetrical, No edema Peripheral Pulses: within normal limits - Abdominal General gastrointestinal: Present: soft, non-tender, non-distended, normal bowel sounds Male genitourinary: Present: normal - Integumentary Integumentary: Present: clear, warm, dry - Musculoskeletal Musculoskeletal: gait normal, strength equal bilaterally - Psychiatric Psychiatric: appropriate mood/affect, intact judgment & insight - Neurologic Neurologic: CNII-XII intact, moves all extremities Results - Labs CBC & Chem 7: 01/19/21 14:48 01/19/21 14:48 Labs: Laboratory Last Values WBC 6.0 K/mm3 (4.5-11.0) 01/19/21 14:48 RBC 3.18 M/mm3 (3.65-5.03) L 01/19/21 14:48 Hgb 8.6 gm/dl (11.8-15.2) L 01/19/21 14:48 Hct 27.1 % (35.5-45.6) L 01/19/21 14:48 MCV 85 fl (84-94) 01/19/21 14:48 MCH 27 pg (28-32) L 01/19/21 14:48 MCHC 32 % (32-34) 01/19/21 14:48 RDW 15.5 % (13.2-15.2) H 01/19/21 14:48 Plt Count 179 K/mm3 (140-440) 01/19/21 14:48 Add Manual Diff Complete 01/19/21 14:48 Total Counted 100 01/19/21 14:48 Seg Neuts % (Manual) 52.0 % (40.0-70.0) 01/19/21 14:48 Lymphocytes % (Manual) 32.0 % (13.4-35.0) 01/19/21 14:48 Monocytes % (Manual) 11.0 % (0.0-7.3) H 01/19/21 14:48 Eosinophils % (Manual) 4.0 % (0.0-4.3) 01/19/21 14:48 Basophils % (Manual) 1.0 % (0.0-1.8) 01/19/21 14:48 Nucleated RBC % Not Reportable 01/19/21 14:48 Seg Neutrophils # Man 3.1 K/mm3 (1.8-7.7) 01/19/21 14:48 Band Neutrophils # 0.0 K/mm3 01/19/21 14:48 Lymphocytes # (Manual) 1.9 K/mm3 (1.2-5.4) 01/19/21 14:48 Abs React Lymphs (Man) 0.0 K/mm3 01/19/21 14:48 Monocytes # (Manual) 0.7 K/mm3 (0.0-0.8) 01/19/21 14:48 Eosinophils # (Manual) 0.2 K/mm3 (0.0-0.4) 01/19/21 14:48 Basophils # (Manual) 0.1 K/mm3 (0.0-0.1) 01/19/21 14:48 Metamyelocytes # 0.0 K/mm3 01/19/21 14:48 Myelocytes # 0.0 K/mm3 01/19/21 14:48 Promyelocytes # 0.0 K/mm3 01/19/21 14:48 Blast Cells # 0.0 K/mm3 01/19/21 14:48 WBC Morphology Not Reportable 01/19/21 14:48 Hypersegmented Neuts Not Reportable 01/19/21 14:48 Hyposegmented Neuts Not Reportable 01/19/21 14:48 Hypogranular Neuts Not Reportable 01/19/21 14:48 Smudge Cells Not Reportable 01/19/21 14:48 Toxic Granulation Not Reportable 01/19/21 14:48 Toxic Vacuolation Not Reportable 01/19/21 14:48 Dohle Bodies Not Reportable 01/19/21 14:48 Pelger-Huet Anomaly Not Reportable 01/19/21 14:48 Luc Rods Not Reportable 01/19/21 14:48 Platelet Estimate Not Reportable 01/19/21 14:48 Clumped Platelets Not Reportable 01/19/21 14:48 Plt Clumps, EDTA Not Reportable 01/19/21 14:48 Large Platelets Not Reportable 01/19/21 14:48 Giant Platelets Not Reportable 01/19/21 14:48 Platelet Satelliting Not Reportable 01/19/21 14:48 Plt Morphology Comment Not Reportable 01/19/21 14:48 RBC Morphology Normal 01/19/21 14:48 Dimorphic RBCs Not Reportable 01/19/21 14:48 Polychromasia Not Reportable 01/19/21 14:48 Hypochromasia Not Reportable 01/19/21 14:48 Poikilocytosis Not Reportable 01/19/21 14:48 Anisocytosis Not Reportable 01/19/21 14:48 Microcytosis Not Reportable 01/19/21 14:48 Macrocytosis Not Reportable 01/19/21 14:48 Spherocytes Not Reportable 01/19/21 14:48 Pappenheimer Bodies Not Reportable 01/19/21 14:48 Sickle Cells Not Reportable 01/19/21 14:48 Target Cells Not Reportable 01/19/21 14:48 Tear Drop Cells Not Reportable 01/19/21 14:48 Ovalocytes Not Reportable 01/19/21 14:48 Helmet Cells Not Reportable 01/19/21 14:48 Muñoz-[place] Bodies Not Reportable 01/19/21 14:48 [place] Rings Not Reportable 01/19/21 14:48 [place] Cells Not Reportable 01/19/21 14:48 Bite Cells Not Reportable 01/19/21 14:48 Crenated Cell Not Reportable 01/19/21 14:48 Elliptocytes Not Reportable 01/19/21 14:48 Acanthocytes (Spur) Not Reportable 01/19/21 14:48 Rouleaux Not Reportable 01/19/21 14:48 Hemoglobin C Crystals Not Reportable 01/19/21 14:48 Schistocytes Not Reportable 01/19/21 14:48 Malaria parasites Not Reportable 01/19/21 14:48 Elias Bodies Not Reportable 01/19/21 14:48 Hem Pathologist Commnt No 01/19/21 14:48 Sodium 139 mmol/L (137-145) 01/19/21 14:48 Potassium 4.4 mmol/L (3.6-5.0) 01/19/21 14:48 Chloride 99.0 mmol/L (98-107) 01/19/21 14:48 Carbon Dioxide 19 mmol/L (22-30) L 01/19/21 14:48 Anion Gap 25 mmol/L 01/19/21 14:48 BUN 90 mg/dL (9-20) H 01/19/21 14:48 Creatinine 11.1 mg/dL (0.8-1.3) H 01/19/21 14:48 Estimated GFR 6 ml/min 01/19/21 14:48 BUN/Creatinine Ratio 8 % 01/19/21 14:48 Glucose 96 mg/dL (75-100) 01/19/21 14:48 Calcium 7.5 mg/dL (8.4-10.2) L 01/19/21 14:48 Total Bilirubin 0.30 mg/dL (0.1-1.2) 01/19/21 14:48 AST 19 units/L (5-40) 01/19/21 14:48 ALT 20 units/L (7-56) 01/19/21 14:48 Alkaline Phosphatase 114 units/L (35-129) 01/19/21 14:48 Total Protein 8.1 g/dL (6.3-8.2) 01/19/21 14:48 Albumin 4.0 g/dL (3.9-5) 01/19/21 14:48 Albumin/Globulin Ratio 1.0 % 01/19/21 14:48 Assessment and Plan VTE prophylaxis?: Chemical Plan of care discussed with patient/family: Yes - Patient Problems (1) ESRD needing dialysis Current Visit: Yes Status: Chronic Plan to address problem: Admit the patient to the medical telemetry. Put the patient on renal diet we will continue the home medication. We will consult nephrology for dialysis in the morning. Recheck BMP in the morning (2) Hypertension Current Visit: No Status: Acute Qualifiers: Plan to address problem: Clonidine 0.1 mg p.o. every 8 hours metoprolol 100 mg p.o. twice daily, mine accidental 10 mg p.o. twice daily, Procardia XL 60 mg p.o. twice daily. We will monitor the blood pressure closely (3) Lupus Current Visit: Yes Status: Acute Plan to address problem: Stable outpatient follow-up with rheumatology. (4) DVT prophylaxis Current Visit: Yes Status: Acute Plan to address problem: Heparin 5000 units subcu every 8 hours for DVT prophylaxis. Pepcid 20 mg p.o. twice daily for GI prophylaxis. Patient is a full code
[2021-01-20] MEDS ORDERED: HYDROmorphone 1 MG/1 ML INJ IV STA (03:43)
[2021-01-20] MEDS: hydrALAZINE 20 MG/1 ML INJ IV PRN ×2 (03:51→15:37)
[2021-01-20] MEDS: HEPARIN 5,000 UNIT/1 ML VIAL SUB-Q SCH ×4 (05:58→22:07)
[2021-01-20] MEDS: cloNIDine 0.1 MG TAB PO SCH ×3 (05:58→22:06)
[2021-01-20] MEDS: IPRATROPIUM/ALBUTEROL SULFATE 3 ML AMPUL.NEB IH SCH ×4 (06:52→22:30)
[2021-01-20] MEDS: NIFEdipine XL 60 MG TAB PO SCH ×2 (09:22→21:47)
[2021-01-20] MEDS: ASPIRIN EC 81 MG TAB PO SCH (09:22)
[2021-01-20] MEDS: GABAPENTIN 300 MG CAP PO SCH ×2 (09:23→21:48)
[2021-01-20] MEDS: CALCITRIOL 0.25 MCG CAP PO SCH (09:23)
[2021-01-20] MEDS: MINOXIDIL 10 MG TAB PO SCH ×3 (09:23→22:07)
[2021-01-20] MEDS: SODIUM BICARBONATE 650 MG TAB PO SCH ×2 (09:23→21:47)
[2021-01-20] MEDS: METOPROLOL TARTRATE 100 MG TAB PO SCH ×2 (09:23→22:06)
[2021-01-20] MEDS: FAMOTIDINE 10 MG TAB PO SCH ×3 (09:24→22:09)
--- NOTE | 2021-01-20 09:26 | Event Note ---
Date: 01/20/21 Chart reviewed. Patient appears to be followed by Dr. Poe/Dr. Carter. Contacted Dr. Carter who confirms patient is followed by his group. Will reassign consult. Dr. Carter will see patient today.
[2021-01-20] MEDS ORDERED: FAMOTIDINE 20 MG TAB PO SCH (10:00)
[2021-01-20] MEDS ORDERED: SODIUM CHLORIDE 0.9% 100 ML IV PRN (10:25)
--- NOTE | 2021-01-20 12:06 | XRay Report ---
CHEST 1 VIEW INDICATION: Baseline hx of hypertension, kidney failure, needs dialysis. COMPARISON: 11/08/2020 FINDINGS: Support devices: None. Heart: Borderline heart size. Lungs/Pleura: No acute air space or interstitial disease. No infiltrate, pleural fluid or pneumothora x. Additional findings: None. IMPRESSION: Borderline heart size. Lungs clear. Signer Name: Louis Meyer Jr, MD Signed: 01/20/2021 12:01 PM Workstation Name: [id number]
[2021-01-20] MEDS: oxyCODONE /ACETAMINOPHEN 5-325MG TAB PO PRN ×2 (12:09→19:59)
[2021-01-20 15:06] LABS: Hepatitis B Surface Antigen Non-Reactive (Negative); Hepatitis C Virus Antibody Reactive (NonReactive)
--- NOTE | 2021-01-20 15:50 | Consultation ---
History of Present Illness - Reason for Consult Consult date: 01/20/21 end stage renal disease Requesting physician: IAN ALMONTE - History of Present Illness This is a 55 yo M with PMH sig for ESRD in the setting of lupus nephritis and HTN who has history of noncompliance with HD in the past. He has been set up at outpatient HD clinics several times, however citing social issues, frequent cramps, he has not been going to HD consistently. Has difficulty to place at outpatient HD clinics d/t non-compliance. Pt presents to ER for HD treatments, pt was last dialyzed at [facility] on 01/12. Labs showed elevated BUN/Cr at 90/11.1mg/dl along with metabolic acidosis. Pt c/o generalized weakness, muscle wasting, denies SOB, CP, palpitations, fever, chills, n/v/d Past History Past Medical History: anemia, hypertension, renal failure, other (Lupus) Past Surgical History: Other (AVF placement ) Social history: denies: smoking, alcohol abuse, prescription drug abuse, IV drug use Medications and Allergies Allergies Allergy/AdvReac Type Severity Reaction Status Date / Time doxycycline Allergy Unknown Verified 11/08/20 16:05 prochlorperazine edisylate Allergy Unknown Verified 11/08/20 16:05 [From Compazine] Home Medications Medication Instructions Recorded Confirmed Last Taken Type Acetaminophen [Acetaminophen TAB] 650 mg PO Q4H PRN #30 tablet 04/06/18 02/18/20 Unknown Rx Aspirin EC [Halfprin EC] 81 mg PO QDAY #30 tablet. 11/10/20 Unknown Rx Gabapentin 300 mg PO BID #60 capsule 11/10/20 01/18/21 Rx Metoprolol [Lopressor TAB] 100 mg PO BID #60 tablet 11/10/20 01/18/21 Rx NIFEdipine XL [Procardia Xl] 60 mg PO BID 30 Days #60 tablet 11/10/20 01/17/21 Rx Sodium Bicarbonate 650 mg PO BID #60 tablet 11/10/20 Unknown Rx calcitrioL [Rocaltrol] 0.25 mcg PO QDAY #30 capsule 11/10/20 Unknown Rx cloNIDine [Catapres] 0.1 mg PO Q8HR #90 tablet 11/10/20 01/18/21 20:40 Rx minoxidiL [Loniten] 10 mg PO BID #60 tablet 11/10/20 01/18/21 08:45 Rx Active Meds: Active Medications Acetaminophen (Acetaminophen 325 Mg Tab) 650 mg PO Q4H PRN PRN Reason: Pain MILD(1-3)/Fever >100.5/MCDONOUGH Albuterol (Albuterol 2.5 Mg/3 Ml Nebu) 2.5 mg IH Q4HRT PRN PRN Reason: Shortness Of Breath Albuterol/Ipratropium (Ipratropium/Albuterol Sulfate 3 Ml Ampul.Neb) 1 ampul IH Q6HRT [facility] Last Admin: 01/20/21 06:52 Dose: Not Given Documented by: Aspirin (Aspirin Ec 81 Mg Tab) 81 mg PO QDAY [facility] Last Admin: 01/20/21 09:22 Dose: 81 mg Documented by: Calcitriol (Calcitriol 0.25 Mcg Cap) 0.25 mcg PO QDAY [facility] Last Admin: 01/20/21 09:23 Dose: Not Given Documented by: Clonidine HCl (Clonidine 0.1 Mg Tab) 0.1 mg PO Q8HR [facility] Last Admin: 01/20/21 15:15 Dose: Not Given Documented by: Famotidine (Famotidine 10 Mg Tab) 10 mg PO BID [facility] Last Admin: 01/20/21 09:24 Dose: Not Given Documented by: Gabapentin (Gabapentin 300 Mg Cap) 300 mg PO BID [facility] Last Admin: 01/20/21 09:23 Dose: 300 mg Documented by: Heparin Sodium (Porcine) (Heparin 5,000 Unit/1 Ml Vial) 5,000 unit SUB-Q Q8HR [facility] Last Admin: 01/20/21 15:15 Dose: Not Given Documented by: Hydralazine HCl (Hydralazine 20 Mg/1 Ml Inj) 10 mg IV Q6H PRN PRN Reason: htn Last Admin: 01/20/21 15:37 Dose: 10 mg Documented by: Sodium Chloride (Nacl 0.9%) 100 mls @ 999 mls/hr IV ALISON PRN PRN Reason: Hypotension Metoprolol Tartrate (Metoprolol Tartrate 100 Mg Tab) 100 mg PO BID [facility] Last Admin: 01/20/21 09:23 Dose: 100 mg Documented by: Minoxidil (Minoxidil 10 Mg Tab) 10 mg PO BID [facility] Last Admin: 01/20/21 09:23 Dose: Not Given Documented by: Nifedipine (Nifedipine Xl 60 Mg Tab) 60 mg PO BID [facility] Last Admin: 01/20/21 09:22 Dose: 60 mg Documented by: Ondansetron HCl (Ondansetron 4 Mg/2 Ml Inj) 4 mg IV Q8H PRN PRN Reason: Nausea And Vomiting Oxycodone/Acetaminophen (Oxycodone /Acetaminophen 5-325mg Tab) 1 tab PO Q8H PRN PRN Reason: Pain, Moderate (4-6) Last Admin: 01/20/21 12:09 Dose: 1 tab Documented by: Sodium Bicarbonate (Sodium Bicarbonate 650 Mg Tab) 650 mg PO BID [facility] Last Admin: 01/20/21 09:23 Dose: 650 mg Documented by: Sodium Chloride (Sodium Chloride 0.9% 10 Ml Flush Syringe) 10 ml IV BID [facility] Last Admin: 01/20/21 12:10 Dose: 10 ml Documented by: Sodium Chloride (Sodium Chloride 0.9% 10 Ml Flush Syringe) 10 ml IV PRN PRN PRN Reason: LINE FLUSH Review of Systems All systems: negative Constitutional: anorexia, fatigue, weakness, malaise Exam - Vital Signs Vital signs: Vital Signs Temp Pulse Resp BP Pulse Ox 98.5 F 89 20 180/98 100 01/19/21 13:06 01/19/21 13:06 01/19/21 13:06 01/19/21 13:06 01/19/21 13:06 - General Appearance General appearance: appears stated age, cachectic, chronically ill EENT: ATNC, PERRL, mucous membranes moist Neck: Present: neck supple Respiratory: Clear to Ascultation Heart: regular, S1S2 Gastrointestinal: Present: normoactive bowel sounds Integumentary: no rash, other (no edema, LUE AVF with + thrill/bruit) Neurologic: no focal deficit, alert and oriented x3, strength 5/5, CN 3-12 intact Psychiatric: mood/affect appropriate, cooperative Results - Lab Results 01/19/21 14:48 01/19/21 14:48 Most recent lab results Calcium 7.5 mg/dL (8.4-10.2) L 01/19/21 14:48 Assessment and Plan - Patient Problems (1) ESRD (end stage renal disease) on dialysis Current Visit: Yes Status: Chronic Plan to address problem: HD arranged, cont HD on MWF schedule. Outpatient HD arrangement as per case management, however due to his history of noncompliance it will be difficult to find a accepting clinic. (2) Acidosis Current Visit: Yes Status: Acute Plan to address problem: to be corrected with HD (3) Anemia in chronic kidney disease (CKD) Current Visit: No Status: Acute Qualifiers: Chronic kidney disease stage: on chronic dialysis Qualified Code(s): N18.6 - End stage renal disease; D63.1 - Anemia in chronic kidney disease; Z99.2 - Dependence on renal dialysis Plan to address problem: treat with EPO on HD (4) Noncompliance of patient with renal dialysis Current Visit: Yes Status: Chronic
[2021-01-20] MEDS ORDERED: EPOETIN ALFA-EPBX 10,000 UNIT/1 ML VIAL SUB-Q ONE (15:58)
[2021-01-20] MEDS ORDERED: HYDROmorphone 1 MG/1 ML INJ IV ONE ×2 (22:03→23:31)
[2021-01-21] MEDS: IPRATROPIUM/ALBUTEROL SULFATE 3 ML AMPUL.NEB IH SCH ×4 (03:51→19:24)
[2021-01-21 06:11] LABS: Hematocrit 25.6 % (35.5-45.6); Hemoglobin 8.4 gm/dl (11.8-15.2); Mean Corpuscular HGB Conc 33 % (32-34); Mean Corpuscular Volume 84 fl (84-94); Platelet Count 162 K/mm3 (140-440); Red Blood Count 3.05 M/mm3 (3.65-5.03); Red Cell Distribution Width 15.2 % (13.2-15.2)
[2021-01-21 06:28] LABS: Calcium 7.6 mg/dL (8.4-10.2)
[2021-01-21] MEDS: cloNIDine 0.1 MG TAB PO SCH ×4 (06:54→21:49)
[2021-01-21] MEDS: HEPARIN 5,000 UNIT/1 ML VIAL SUB-Q SCH ×4 (06:55→21:50)
[2021-01-21] MEDS: GABAPENTIN 300 MG CAP PO SCH ×2 (09:12→21:49)
[2021-01-21] MEDS: ASPIRIN EC 81 MG TAB PO SCH (09:13)
[2021-01-21] MEDS: NIFEdipine XL 60 MG TAB PO SCH ×2 (09:13→22:04)
[2021-01-21] MEDS: SODIUM BICARBONATE 650 MG TAB PO SCH ×2 (09:14→22:00)
[2021-01-21] MEDS: CALCITRIOL 0.25 MCG CAP PO SCH (09:14)
[2021-01-21] MEDS: FAMOTIDINE 10 MG TAB PO SCH ×2 (09:14→22:00)
[2021-01-21] MEDS: METOPROLOL TARTRATE 100 MG TAB PO SCH ×2 (09:14→22:00)
[2021-01-21] MEDS: MINOXIDIL 10 MG TAB PO SCH ×2 (09:14→22:00)
--- NOTE | 2021-01-21 09:30 | Progress Note ---
Assessment and Plan Assessment and plan: #ESRD Patient has been noncompliant with hemodialysis He will need to have hemodialysis set up prior to discharge Case management is currently arranging for hemodialysis chair #Hypertension Continue home medications #Lupus Stable Outpatient follow-up with rheumatology #Leg spasms and pain Start baclofen-dose adjusted due to ESRD, Monitor #DVT prophylaxis-Heparin Full code History Interval history: Patient seen and examined at bedside this morning. Complains of leg spasms. Needs hemodialysis chair which is currently being arranged by case management Hospitalist Physical - Physical exam Narrative exam: VITAL SIGNS: Reviewed. GENERAL: Awake HEAD: No signs of head trauma. EYES: Pupils are equal. Extraocular motions intact. MOUTH: Oropharynx is normal. NECK: No adenopathy, no JVD. CHEST: Chest with diminished breath sounds bilaterally. No wheezes, rales, or rhonchi. CARDIAC: normal S1 and S2, without murmurs, gallops, or rubs. ABDOMEN: Soft, non tender and non distended. No rebound or guarding, and no masses palpated. Bowel Sounds normal. MUSCULOSKELETAL: No edema NEUROLOGIC EXAM: Alert and oriented x3. No focal neurologic deficits SKIN: No obvious lesions - Constitutional Vitals: Temp Pulse Resp BP Pulse Ox 99.6 F 101 H 18 154/82 97 01/21/21 05:07 01/21/21 09:14 01/21/21 08:54 01/21/21 09:14 01/21/21 05:07 Results - Labs CBC & Chem 7: 01/21/21 05:21 01/21/21 05:21 Labs: Laboratory Last Values WBC 5.3 K/mm3 (4.5-11.0) 01/21/21 05: RBC 3.05 M/mm3 (3.65-5.03) L 01/21/21 05:21 Hgb 8.4 gm/dl (11.8-15.2) L 01/21/21 05:21 Hct 25.6 % (35.5-45.6) L 01/21/21 05:21 MCV 84 fl (84-94) 01/21/21 05:21 MCH 28 pg (28-32) 01/21/21 05:21 MCHC 33 % (32-34) 01/21/21 05:21 RDW 15.2 % (13.2-15.2) 01/21/21 05:21 Plt Count 162 K/mm3 (140-440) 01/21/21 05:21 Add Manual Diff Complete 01/19/21 14:48 Total Counted 100 01/19/21 14:48 Seg Neuts % (Manual) 52.0 % (40.0-70.0) 01/19/21 14:48 Lymphocytes % (Manual) 32.0 % (13.4-35.0) 01/19/21 14:48 Monocytes % (Manual) 11.0 % (0.0-7.3) H 01/19/21 14:48 Eosinophils % (Manual) 4.0 % (0.0-4.3) 01/19/21 14:48 Basophils % (Manual) 1.0 % (0.0-1.8) 01/19/21 14:48 Nucleated RBC % Not Reportable 01/19/21 14:48 Seg Neutrophils # Man 3.1 K/mm3 (1.8-7.7) 01/19/21 14:48 Band Neutrophils # 0.0 K/mm3 01/19/21 14:48 Lymphocytes # (Manual) 1.9 K/mm3 (1.2-5.4) 01/19/21 14:48 Abs React Lymphs (Man) 0.0 K/mm3 01/19/21 14:48 Monocytes # (Manual) 0.7 K/mm3 (0.0-0.8) 01/19/21 14:48 Eosinophils # (Manual) 0.2 K/mm3 (0.0-0.4) 01/19/21 14:48 Basophils # (Manual) 0.1 K/mm3 (0.0-0.1) 01/19/21 14:48 Metamyelocytes # 0.0 K/mm3 01/19/21 14:48 Myelocytes # 0.0 K/mm3 01/19/21 14:48 Promyelocytes # 0.0 K/mm3 01/19/21 14:48 Blast Cells # 0.0 K/mm3 01/19/21 14:48 WBC Morphology Not Reportable 01/19/21 14:48 Hypersegmented Neuts Not Reportable 01/19/21 14:48 Hyposegmented Neuts Not Reportable 01/19/21 14:48 Hypogranular Neuts Not Reportable 01/19/21 14:48 Smudge Cells Not Reportable 01/19/21 14:48 Toxic Granulation Not Reportable 01/19/21 14:48 Toxic Vacuolation Not Reportable 01/19/21 14:48 Dohle Bodies Not Reportable 01/19/21 14:48 Pelger-Huet Anomaly Not Reportable 01/19/21 14:48 Luc Rods Not Reportable 01/19/21 14:48 Platelet Estimate Not Reportable 01/19/21 14:48 Clumped Platelets Not Reportable 01/19/21 14:48 Plt Clumps, EDTA Not Reportable 01/19/21 14:48 Large Platelets Not Reportable 01/19/21 14:48 Giant Platelets Not Reportable 01/19/21 14:48 Platelet Satelliting Not Reportable 01/19/21 14:48 Plt Morphology Comment Not Reportable 01/19/21 14:48 RBC Morphology Normal 01/19/21 14:48 Dimorphic RBCs Not Reportable 01/19/21 14:48 Polychromasia Not Reportable 01/19/21 14:48 Hypochromasia Not Reportable 01/19/21 14:48 Poikilocytosis Not Reportable 01/19/21 14:48 Anisocytosis Not Reportable 01/19/21 14:48 Microcytosis Not Reportable 01/19/21 14:48 Macrocytosis Not Reportable 01/19/21 14:48 Spherocytes Not Reportable 01/19/21 14:48 Pappenheimer Bodies Not Reportable 01/19/21 14:48 Sickle Cells Not Reportable 01/19/21 14:48 Target Cells Not Reportable 01/19/21 14:48 Tear Drop Cells Not Reportable 01/19/21 14:48 Ovalocytes Not Reportable 01/19/21 14:48 Helmet Cells Not Reportable 01/19/21 14:48 [place] Bodies Not Reportable 01/19/21 14:48 [place] Rings Not Reportable 01/19/21 14:48 [place] Cells Not Reportable 01/19/21 14:48 Bite Cells Not Reportable 01/19/21 14:48 Crenated Cell Not Reportable 01/19/21 14:48 Elliptocytes Not Reportable 01/19/21 14:48 Acanthocytes (Spur) Not Reportable 01/19/21 14:48 Rouleaux Not Reportable 01/19/21 14:48 Hemoglobin C Crystals Not Reportable 01/19/21 14:48 Schistocytes Not Reportable 01/19/21 14:48 Malaria parasites Not Reportable 01/19/21 14:48 Elias Bodies Not Reportable 01/19/21 14:48 Hem Pathologist Commnt No 01/19/21 14:48 Sodium 141 mmol/L (137-145) 01/21/21 05:21 Potassium 4.1 mmol/L (3.6-5.0) 01/21/21 05:21 Chloride 100.4 mmol/L (98-107) 01/21/21 05:21 Carbon Dioxide 27 mmol/L (22-30) D 01/21/21 05:21 Anion Gap 18 mmol/L 01/21/21 05:21 BUN 41 mg/dL (9-20) H 01/21/21 05:21 Creatinine 6.2 mg/dL (0.8-1.3) H 01/21/21 05:21 Estimated GFR 12 ml/min 01/21/21 05:21 BUN/Creatinine Ratio 7 % 01/21/21 05:21 Glucose 106 mg/dL (75-100) H 01/21/21 05:21 Calcium 7.6 mg/dL (8.4-10.2) L 01/21/21 05:21 Total Bilirubin 0.30 mg/dL (0.1-1.2) 01/19/21 14:48 AST 19 units/L (5-40) 01/19/21 14:48 ALT 20 units/L (7-56) 01/19/21 14:48 Alkaline Phosphatase 114 units/L (35-129) 01/19/21 14:48 Total Protein 8.1 g/dL (6.3-8.2) 01/19/21 14:48 Albumin 4.0 g/dL (3.9-5) 01/19/21 14:48 Albumin/Globulin Ratio 1.0 % 01/19/21 14:48 Hepatitis A IgM Ab Non-reactive (NonReactive) 01/20/21 13:52 Hep Bs Antigen Non-reactive (Negative) 01/20/21 13:52 Hep B Core IgM Ab Non-reactive (NonReactive) 01/20/21 13:52 Hepatitis C Antibody Reactive (NonReactive) A 01/20/21 13:52 Dave/IV: Voiding Method Toilet Active Medications - Current Medications Current Medications: Generic Name Dose Route Start Last Admin Trade Name Freq PRN Reason Stop Dose Admin Acetaminophen 650 mg 01/20/21 01:34 Acetaminophen 325 Mg Tab PO Q4H PRN Pain MILD(1-3)/Fever >100.5/MCDONOUGH Albuterol 2.5 mg 01/20/21 01:34 Albuterol 2.5 Mg/3 Ml Nebu IH Q4HRT PRN Shortness Of Breath Albuterol/Ipratropium 1 ampul 01/20/21 02:00 01/21/21 08:54 Ipratropium/Albuterol Sulfate 3 Ml Ampul.Neb IH 1 ampul Q6HRT KELLY Administration Aspirin 81 mg 01/20/21 10:00 01/21/21 09:13 Aspirin Ec 81 Mg Tab PO 81 mg QDAY KELLY Administration Calcitriol 0.25 mcg 01/20/21 10:00 01/21/21 09:14 Calcitriol 0.25 Mcg Cap PO Not Given QDAY KELLY Clonidine HCl 0.1 mg 01/20/21 06:00 01/21/21 06:54 Clonidine 0.1 Mg Tab PO Not Given Q8HR KELLY Famotidine 10 mg 01/20/21 10:00 01/21/21 09:14 Famotidine 10 Mg Tab PO Not Given BID KELLY Gabapentin 300 mg 01/20/21 10:00 01/21/21 09:12 Gabapentin 300 Mg Cap PO 300 mg BID KELLY Administration Heparin Sodium (Porcine) 5,000 unit 01/20/21 06:00 01/21/21 06:55 Heparin 5,000 Unit/1 Ml Vial SUB-Q Not Given Q8HR KELLY Hydralazine HCl 10 mg 01/20/21 01:35 01/20/21 15:37 Hydralazine 20 Mg/1 Ml Inj IV 10 mg Q6H PRN Administration htn Sodium Chloride 100 mls @ 999 mls/hr 01/20/21 10:25 Nacl 0.9% IV ALISON PRN Hypotension Metoprolol Tartrate 100 mg 01/20/21 10:00 01/21/21 09:14 Metoprolol Tartrate 100 Mg Tab PO 100 mg BID KELLY Administration Minoxidil 10 mg 01/20/21 10:00 01/21/21 09:14 Minoxidil 10 Mg Tab PO Not Given BID KELLY Nifedipine 60 mg 01/20/21 10:00 01/21/21 09:13 Nifedipine Xl 60 Mg Tab PO 60 mg BID KELLY Administration Ondansetron HCl 4 mg 01/20/21 01:34 Ondansetron 4 Mg/2 Ml Inj IV Q8H PRN Nausea And Vomiting Oxycodone/Acetaminophen 1 tab 01/20/21 11:54 01/20/21 19:59 Oxycodone /Acetaminophen 5-325mg Tab PO 1 tab Q8H PRN Administration Pain, Moderate (4-6) Sodium Bicarbonate 650 mg 01/20/21 10:00 01/21/21 09:14 Sodium Bicarbonate 650 Mg Tab PO 650 mg BID KELLY Administration Sodium Chloride 10 ml 01/20/21 10:00 01/21/21 09:14 Sodium Chloride 0.9% 10 Ml Flush Syringe IV 10 ml BID KELLY Administration Sodium Chloride 10 ml 01/20/21 01:34 Sodium Chloride 0.9% 10 Ml Flush Syringe IV PRN PRN LINE FLUSH
--- NOTE | 2021-01-21 10:13 | Progress Note ---
Assessment and Plan - Patient Problems (1) ESRD (end stage renal disease) on dialysis Current Visit: Yes Status: Chronic Plan to address problem: HD arranged, cont HD on MWF schedule. Outpatient HD arrangement as per case management, however due to his history of noncompliance it will be difficult to find a accepting clinic. If no accepting clinic found, pt needs to come to ER for HD treatments (2) Acidosis Current Visit: Yes Status: Acute Plan to address problem: corrected with HD (3) Anemia in chronic kidney disease (CKD) Current Visit: No Status: Acute Qualifiers: Chronic kidney disease stage: on chronic dialysis Qualified Code(s): N18.6 - End stage renal disease; D63.1 - Anemia in chronic kidney disease; Z99.2 - De pendence on renal dialysis Plan to address problem: treat with EPO on HD (4) Noncompliance of patient with renal dialysis Current Visit: Yes Status: Chronic Subjective Date of service: 01/21/21 Principal diagnosis: ESRD Interval history: pt awake, alert, in no acute distress, HD well tolerated without issues Objective - Vital Signs Vital signs: Vital Signs - 12hr 01/21/21 01/21/21 01/21/21 00:05 05:07 08:00 Temperature 99.6 F 99.6 F Pulse Rate 94 H 92 H Pulse Rate [ Anterior Bilateral] Pulse Rate [ 101 H From Monitor] Respiratory 20 20 18 Rate Respiratory Rate [Anterior Bilateral] Blood Pressure 113/58 138/71 O2 Sat by Pulse 96 97 Oximetry 01/21/21 01/21/21 08:54 09:14 Temperature Pulse Rate 101 H Pulse Rate [ 87 Anterior Bilateral] Pulse Rate [ From Monitor] Respiratory Rate Respiratory 18 Rate [Anterior Bilateral] Blood Pressure 154/82 O2 Sat by Pulse Oximetry - General Appearance General appearance: well-developed, appears stated age, chronically ill EENT: ATNC, PERRL, mucous membranes moist Neck: no JVD Respiratory: Present: Clear to Ascultation Cardiology: regular, S1S2 Gastrointestinal: normoactive bowel sounds Integumentary: no rash Neurologic: no focal deficit, alert and oriented x3, strength 5/5, CN 3-12 intact Psychiatric: mood/affect appropriate, cooperative - Lab 01/21/21 05:21 01/21/21 05:21 Most recent lab results Calcium 7.6 mg/dL (8.4-10.2) L 01/21/21 05:21 Medications & Allergies - Medications Allergies/Adverse Reactions: Allergies doxycycline Allergy (Verified 11/08/20 16:05) Unknown prochlorperazine edisylate [From Compazine] Allergy (Verified 11/08/20 16:05) Unknown Home Medications: Home Medications Medication Instructions Recorded Confirmed Last Taken Type Acetaminophen [Acetaminophen TAB] 650 mg PO Q4H PRN #30 tablet 04/06/18 02/18/20 Unknown Rx Aspirin EC [Halfprin EC] 81 mg PO QDAY #30 tablet. 11/10/20 Unknown Rx Gabapentin 300 mg PO BID #60 capsule 11/10/20 01/18/21 Rx Metoprolol [Lopressor TAB] 100 mg PO BID #60 tablet 11/10/20 01/18/21 Rx NIFEdipine XL [Procardia Xl] 60 mg PO BID 30 Days #60 tablet 11/10/20 01/17/21 Rx Sodium Bicarbonate 650 mg PO BID #60 tablet 11/10/20 Unknown Rx calcitrioL [Rocaltrol] 0.25 mcg PO QDAY #30 capsule 11/10/20 Unknown Rx cloNIDine [Catapres] 0.1 mg PO Q8HR #90 tablet 11/10/20 01/18/21 20:40 Rx minoxidiL [Loniten] 10 mg PO BID #60 tablet 11/10/20 01/18/21 08:45 Rx Active Medications: Generic Name Dose Route Start Last Admin Trade Name Freq PRN Reason Stop Dose Admin Acetaminophen 650 mg 01/20/21 01:34 Acetaminophen 325 Mg Tab PO Q4H PRN Pain MILD(1-3)/Fever >100.5/MCDONOUGH Albuterol 2.5 mg 01/20/21 01:34 Albuterol 2.5 Mg/3 Ml Nebu IH Q4HRT PRN Shortness Of Breath Albuterol/Ipratropium 1 ampul 01/20/21 02:00 01/21/21 08:54 Ipratropium/Albuterol Sulfate 3 Ml Ampul.Neb IH 1 ampul Q6HRT EKLLY Administration Aspirin 81 mg 01/20/21 10:00 01/21/21 09:13 Aspirin Ec 81 Mg Tab PO 81 mg QDAY KELLY Administration Baclofen 2.5 mg 01/21/21 10:00 Baclofen 10 Mg Tab PO BID KELLY Calcitriol 0.25 mcg 01/20/21 10:00 01/21/21 09:14 Calcitriol 0.25 Mcg Cap PO Not Given QDAY KELLY Clonidine HCl 0.1 mg 01/20/21 06:00 01/21/21 06:54 Clonidine 0.1 Mg Tab PO Not Given Q8HR KELLY Famotidine 10 mg 01/20/21 10:00 01/21/21 09:14 Famotidine 10 Mg Tab PO Not Given BID KELLY Gabapentin 300 mg 01/20/21 10:00 01/21/21 09:12 Gabapentin 300 Mg Cap PO 300 mg BID KELLY Administration Heparin Sodium (Porcine) 5,000 unit 01/20/21 06:00 01/21/21 06:55 Heparin 5,000 Unit/1 Ml Vial SUB-Q Not Given Q8HR KELLY Hydralazine HCl 10 mg 01/20/21 01:35 01/20/21 15:37 Hydralazine 20 Mg/1 Ml Inj IV 10 mg Q6H PRN Administration htn Sodium Chloride 100 mls @ 999 mls/hr 01/20/21 10:25 Nacl 0.9% IV ALISON PRN Hypotension Metoprolol Tartrate 100 mg 01/20/21 10:00 01/21/21 09:14 Metoprolol Tartrate 100 Mg Tab PO 100 mg BID KELLY Administration Minoxidil 10 mg 01/20/21 10:00 01/21/21 09:14 Minoxidil 10 Mg Tab PO Not Given BID KELLY Nifedipine 60 mg 01/20/21 10:00 01/21/21 09:13 Nifedipine Xl 60 Mg Tab PO 60 mg BID KELLY Administration Ondansetron HCl 4 mg 01/20/21 01:34 Ondansetron 4 Mg/2 Ml Inj IV Q8H PRN Nausea And Vomiting Oxycodone/Acetaminophen 1 tab 01/20/21 11:54 01/20/21 19:59 Oxycodone /Acetaminophen 5-325mg Tab PO 1 tab Q8H PRN Administration Pain, Moderate (4-6) Sodium Bicarbonate 650 mg 01/20/21 10:00 01/21/21 09:14 Sodium Bicarbonate 650 Mg Tab PO 650 mg BID KELLY Administration Sodium Chloride 10 ml 01/20/21 10:00 01/21/21 09:14 Sodium Chloride 0.9% 10 Ml Flush Syringe IV 10 ml BID KELLY Administration Sodium Chloride 10 ml 01/20/21 01:34 Sodium Chloride 0.9% 10 Ml Flush Syringe IV PRN PRN LINE FLUSH
[2021-01-21] MEDS: BACLOFEN 10 MG TAB PO SCH ×2 (11:02→21:50)
[2021-01-21 11:06] LABS: Total Cells Counted 100
[2021-01-21 11:07] LABS: Anisocytosis Few; Hypochromasia Few; Platelet Estimate Consistent w Auto
[2021-01-21] MEDS: oxyCODONE /ACETAMINOPHEN 5-325MG TAB PO PRN ×2 (11:11→21:54)
[2021-01-22] MEDS: IPRATROPIUM/ALBUTEROL SULFATE 3 ML AMPUL.NEB IH SCH (02:48)
[2021-01-22] MEDS: oxyCODONE /ACETAMINOPHEN 5-325MG TAB PO PRN ×2 (04:00→10:36)
[2021-01-22] MEDS ORDERED: NITROGLYCERIN 0.4 MG TAB SUBL SL PRN (04:19)
[2021-01-22] MEDS: MORPHINE 2 MG/1 ML INJ IV PRN ×3 (04:29→22:09)
[2021-01-22] MEDS: cloNIDine 0.1 MG TAB PO SCH ×5 (06:00→22:28)
[2021-01-22] MEDS: HEPARIN 5,000 UNIT/1 ML VIAL SUB-Q SCH ×4 (06:00→22:28)
--- NOTE | 2021-01-22 09:08 | Progress Note ---
Assessment and Plan Assessment and plan: #ESRD Patient has been noncompliant with hemodialysis He will need to have hemodialysis set up prior to discharge Case management is currently arranging for hemodialysis chair #Hypertension Continue home medications #Lupus Stable Outpatient follow-up with rheumatology #Leg spasms and pain Start baclofen-dose adjusted due to ESRD, Monitor #DVT prophylaxis-Heparin Full code History Interval history: Patient seen and examined at bedside this morning. Sleeping soundly. Overnight events noted Needs hemodialysis chair which is currently being arranged by case management Hospitalist Physical - Physical exam Narrative exam: VITAL SIGNS: Reviewed. GENERAL: Awake HEAD: No signs of head trauma. EYES: Pupils are equal. Extraocular motions intact. MOUTH: Oropharynx is normal. NECK: No adenopathy, no JVD. CHEST: Chest with diminished breath sounds bilaterally. No wheezes, rales, or rhonchi. CARDIAC: normal S1 and S2, without murmurs, gallops, or rubs. ABDOMEN: Soft, non tender and non distended. No rebound or guarding, and no masses palpated. Bowel Sounds normal. MUSCULOSKELETAL: No edema NEUROLOGIC EXAM: Alert and oriented x3. No focal neurologic deficits SKIN: No obvious lesions - Constitutional Vitals: Temp Pulse Resp BP Pulse Ox 100.0 F H 90 18 145/82 96 01/22/21 04:23 01/22/21 04:40 01/22/21 04:59 01/22/21 04:40 01/22/21 04:23 HEART Score - HEART Score Troponin: Troponin T 0.020 ng/mL (0.00-0.029) 01/22/21 07:24 Results - Labs CBC & Chem 7: 01/21/21 05:21 01/21/21 05:21 Labs: Laboratory Last Values WBC 5.3 K/mm3 (4.5-11.0) 01/21/21 05: RBC 3.05 M/mm3 (3.65-5.03) L 01/21/21 05:21 Hgb 8.4 gm/dl (11.8-15.2) L 01/21/21 05:21 Hct 25.6 % (35.5-45.6) L 01/21/21 05:21 MCV 84 fl (84-94) 01/21/21 05: MCH 28 pg (28-32) 01/21/21 05:21 MCHC 33 % (32-34) 01/21/21 05:21 RDW 15.2 % (13.2-15.2) 01/21/21 05:21 Plt Count 162 K/mm3 (140-440) 01/21/21 05:21 Add Manual Diff Complete 01/21/21 05:21 Total Counted 100 01/21/21 05:21 Seg Neuts % (Manual) 74.0 % (40.0-70.0) H 01/21/21 05:21 Lymphocytes % (Manual) 18.0 % (13.4-35.0) 01/21/21 05:21 Reactive Lymphs % (Man) 1.0 % 01/21/21 05:21 Monocytes % (Manual) 4.0 % (0.0-7.3) 01/21/21 05:21 Eosinophils % (Manual) 2.0 % (0.0-4.3) 01/21/21 05:21 Basophils % (Manual) 1.0 % (0.0-1.8) 01/21/21 05:21 Nucleated RBC % Not Reportable 01/21/21 05:21 Seg Neutrophils # Man 3.9 K/mm3 (1.8-7.7) 01/21/21 05:21 Band Neutrophils # 0.0 K/mm3 01/21/21 05:21 Lymphocytes # (Manual) 1.0 K/mm3 (1.2-5.4) L 01/21/21 05:21 Abs React Lymphs (Man) 0.1 K/mm3 01/21/21 05:21 Monocytes # (Manual) 0.2 K/mm3 (0.0-0.8) 01/21/21 05:21 Eosinophils # (Manual) 0.1 K/mm3 (0.0-0.4) 01/21/21 05:21 Basophils # (Manual) 0.1 K/mm3 (0.0-0.1) 01/21/21 05:21 Metamyelocytes # 0.0 K/mm3 01/21/21 05:21 Myelocytes # 0.0 K/mm3 01/21/21 05:21 Promyelocytes # 0.0 K/mm3 01/21/21 05:21 Blast Cells # 0.0 K/mm3 01/21/21 05:21 WBC Morphology Not Reportable 01/21/21 05:21 Hypersegmented Neuts Not Reportable 01/21/21 05:21 Hyposegmented Neuts Not Reportable 01/21/21 05:21 Hypogranular Neuts Not Reportable 01/21/21 05:21 Smudge Cells Not Reportable 01/21/21 05:21 Toxic Granulation Not Reportable 01/21/21 05:21 Toxic Vacuolation Not Reportable 01/21/21 05:21 Dohle Bodies Not Reportable 01/21/21 05:21 Pelger-Huet Anomaly Not Reportable 01/21/21 05:21 Luc Rods Not Reportable 01/21/21 05:21 Platelet Estimate Consistent w auto 01/21/21 05:21 Clumped Platelets Not Reportable 01/21/21 05:21 Plt Clumps, EDTA Not Reportable 01/21/21 05:21 Large Platelets Not Reportable 01/21/21 05:21 Giant Platelets Not Reportable 01/21/21 05:21 Platelet Satelliting Not Reportable 01/21/21 05:21 Plt Morphology Comment Not Reportable 01/21/21 05:21 RBC Morphology Not Reportable 01/21/21 05:21 Dimorphic RBCs Not Reportable 01/21/21 05:21 Polychromasia Not Reportable 01/21/21 05:21 Hypochromasia Few 01/21/21 05:21 Poikilocytosis Not Reportable 01/21/21 05:21 Anisocytosis Few 01/21/21 05:21 Microcytosis Not Reportable 01/21/21 05:21 Macrocytosis Not Reportable 01/21/21 05:21 Spherocytes Not Reportable 01/21/21 05:21 Pappenheimer Bodies Not Reportable 01/21/21 05:21 Sickle Cells Not Reportable 01/21/21 05:21 Target Cells Not Reportable 01/21/21 05:21 Tear Drop Cells Not Reportable 01/21/21 05:21 Ovalocytes Not Reportable 01/21/21 05:21 Helmet Cells Not Reportable 01/21/21 05:21 Muñ[place] Bodies Not Reportable 01/21/21 05:21 Mcpherson Rings Not Reportable 01/21/21 05:21 [place] Cells Not Reportable 01/21/21 05:21 Bite Cells Not Reportable 01/21/21 05:21 Crenated Cell Not Reportable 01/21/21 05:21 Elliptocytes Not Reportable 01/21/21 05:21 Acanthocytes (Spur) Not Reportable 01/21/21 05:21 Rouleaux Not Reportable 01/21/21 05:21 Hemoglobin C Crystals Not Reportable 01/21/21 05:21 Schistocytes Not Reportable 01/21/21 05:21 Malaria parasites Not Reportable 01/21/21 05:21 Elias Bodies Not Reportable 01/21/21 05:21 Hem Pathologist Commnt No 01/21/21 05:21 Sodium 141 mmol/L (137-145) 01/21/21 05:21 Potassium 4.1 mmol/L (3.6-5.0) 01/21/21 05:21 Chloride 100.4 mmol/L (98-107) 01/21/21 05:21 Carbon Dioxide 27 mmol/L (22-30) D 01/21/21 05:21 Anion Gap 18 mmol/L 01/21/21 05:21 BUN 41 mg/dL (9-20) H 01/21/21 05:21 Creatinine 6.2 mg/dL (0.8-1.3) H 01/21/21 05:21 Estimated GFR 12 ml/min 01/21/21 05:21 BUN/Creatinine Ratio 7 % 01/21/21 05:21 Glucose 106 mg/dL (75-100) H 01/21/21 05:21 Calcium 7.6 mg/dL (8.4-10.2) L 01/21/21 05:21 Total Bilirubin 0.30 mg/dL (0.1-1.2) 01/19/21 14:48 AST 19 units/L (5-40) 01/19/21 14:48 ALT 20 units/L (7-56) 01/19/21 14:48 Alkaline Phosphatase 114 units/L (35-129) 01/19/21 14:48 Troponin T 0.020 ng/mL (0.00-0.029) 01/22/21 07:24 Total Protein 8.1 g/dL (6.3-8.2) 01/19/21 14:48 Albumin 4.0 g/dL (3.9-5) 01/19/21 14:48 Albumin/Globulin Ratio 1.0 % 01/19/21 14:48 Coronavirus (PCR) Negative (Negative) 01/21/21 Unknown Hepatitis A IgM Ab Non-reactive (NonReactive) 01/20/21 13:52 Hep Bs Antigen Non-reactive (Negative) 01/20/21 13:52 Hep B Core IgM Ab Non-reactive (NonReactive) 01/20/21 13:52 Hepatitis C Antibody Reactive (NonReactive) A 01/20/21 13:52 Dave/IV: Voiding Method Toilet Active Medications - Current Medications Current Medications: Generic Name Dose Route Start Last Admin Trade Name Freq PRN Reason Stop Dose Admin Acetaminophen 650 mg 01/20/21 01:34 Acetaminophen 325 Mg Tab PO Q4H PRN Pain MILD(1-3)/Fever >100.5/MCDONOUGH Albuterol 2.5 mg 01/20/21 01:34 Albuterol 2.5 Mg/3 Ml Nebu IH Q4HRT PRN Shortness Of Breath Aspirin 81 mg 01/20/21 10:00 01/21/21 09:13 Aspirin Ec 81 Mg Tab PO 81 mg QDAY KELLY Administration Baclofen 2.5 mg 01/21/21 10:00 01/21/21 21:50 Baclofen 10 Mg Tab PO 2.5 mg BID KELLY Administration Calcitriol 0.25 mcg 01/20/21 10:00 01/21/21 09:14 Calcitriol 0.25 Mcg Cap PO Not Given QDAY KELLY Clonidine HCl 0.1 mg 01/20/21 06:00 01/22/21 06:00 Clonidine 0.1 Mg Tab PO Not Given Q8HR KELLY Famotidine 10 mg 01/20/21 10:00 01/21/21 22:00 Famotidine 10 Mg Tab PO Not Given BID KELLY Gabapentin 300 mg 01/20/21 10:00 01/21/21 21:49 Gabapentin 300 Mg Cap PO 300 mg BID KELLY Administration Heparin Sodium (Porcine) 5,000 unit 01/20/21 06:00 01/22/21 06:00 Heparin 5,000 Unit/1 Ml Vial SUB-Q Not Given Q8HR KELLY Hydralazine HCl 10 mg 01/20/21 01:35 01/20/21 15:37 Hydralazine 20 Mg/1 Ml Inj IV 10 mg Q6H PRN Administration htn Sodium Chloride 100 mls @ 999 mls/hr 01/20/21 10:25 Nacl 0.9% IV ALISON PRN Hypotension Metoprolol Tartrate 100 mg 01/20/21 10:00 01/21/21 22:00 Metoprolol Tartrate 100 Mg Tab PO 100 mg BID KELLY Administration Minoxidil 10 mg 01/20/21 10:00 01/21/21 22:00 Minoxidil 10 Mg Tab PO Not Given BID KELLY Morphine Sulfate 2 mg 01/22/21 04:19 01/22/21 04:29 Morphine 2 Mg/1 Ml Inj IV 2 mg Q5MIN PRN Administration Chest Pain unrelieved by NTG Nifedipine 60 mg 01/20/21 10:00 01/21/21 22:04 Nifedipine Xl 60 Mg Tab PO 60 mg BID KELLY Administration Nitroglycerin 0.4 mg 01/22/21 04:19 01/22/21 04:40 Nitroglycerin 0.4 Mg Tab Subl SL 0.4 mg .Q5MIN PRN Administration Chest Pain Ondansetron HCl 4 mg 01/20/21 01:34 Ondansetron 4 Mg/2 Ml Inj IV Q8H PRN Nausea And Vomiting Oxycodone/Acetaminophen 1 tab 01/20/21 11:54 01/22/21 04:00 Oxycodone /Acetaminophen 5-325mg Tab PO 1 tab Q8H PRN Administration Pain, Moderate (4-6) Sodium Bicarbonate 650 mg 01/20/21 10:00 01/21/21 22:00 Sodium Bicarbonate 650 Mg Tab PO 650 mg BID KELLY Administration Sodium Chloride 10 ml 01/20/21 10:00 01/21/21 22:00 Sodium Chloride 0.9% 10 Ml Flush Syringe IV 10 ml BID KELLY Administration Sodium Chloride 10 ml 01/20/21 01:34 Sodium Chloride 0.9% 10 Ml Flush Syringe IV PRN PRN LINE FLUSH
[2021-01-22] MEDS: FAMOTIDINE 10 MG TAB PO SCH ×2 (10:35→22:07)
[2021-01-22] MEDS: METOPROLOL TARTRATE 100 MG TAB PO SCH ×2 (10:35→22:07)
[2021-01-22] MEDS: CALCITRIOL 0.25 MCG CAP PO SCH (10:35)
[2021-01-22] MEDS: NIFEdipine XL 60 MG TAB PO SCH ×2 (10:35→22:07)
[2021-01-22] MEDS: ASPIRIN EC 81 MG TAB PO SCH (10:35)
[2021-01-22] MEDS: MINOXIDIL 10 MG TAB PO SCH ×3 (10:35→22:27)
[2021-01-22] MEDS: SODIUM BICARBONATE 650 MG TAB PO SCH ×2 (10:35→22:07)
[2021-01-22] MEDS: GABAPENTIN 300 MG CAP PO SCH ×2 (10:36→22:08)
[2021-01-22] MEDS: BACLOFEN 10 MG TAB PO SCH ×2 (10:36→22:08)
--- NOTE | 2021-01-22 11:07 | Progress Note ---
Assessment and Plan - Patient Problems (1) ESRD (end stage renal disease) on dialysis Current Visit: Yes Status: Chronic Plan to address problem: HD arranged, cont HD on MWF schedule. Outpatient HD arrangement as per case management, however due to his history of noncompliance it will be difficult to find a accepting clinic. If no accepting clinic found, pt needs to come to ER for HD treatments (2) Acidosis Current Visit: Yes Status: Acute Plan to address problem: corrected with HD (3) Anemia in chronic kidney disease (CKD) Current Visit: No Status: Acute Qualifiers: Chronic kidney disease stage: on chronic dialysis Qualified Code(s): N18.6 - End stage renal disease; D63.1 - Anemia in chronic kidney disease; Z99.2 - De pendence on renal dialysis Plan to address problem: treat with EPO on HD (4) Noncompliance of patient with renal dialysis Current Visit: Yes Status: Chronic Subjective Date of service: 01/22/21 Principal diagnosis: ESRD Interval history: pt awake, alert, c/o chest pain this AM, improved with nitro SL Objective - Vital Signs Vital signs: Vital Signs - 12hr 01/22/21 01/22/21 01/22/21 04:00 04:23 04:29 Temperature 100.0 F H Pulse Rate 92 H Respiratory 20 20 20 Rate Blood Pressure 142/82 O2 Sat by Pulse 96 Oximetry 01/22/21 01/22/21 01/22/21 04:40 04:59 10:23 Temperature 99.6 F Pulse Rate 90 84 Respiratory 18 18 Rate Blood Pressure 145/82 135/71 O2 Sat by Pulse 98 Oximetry 01/22/21 01/22/21 10:35 10:36 Temperature Pulse Rate 84 Respiratory 20 Rate Blood Pressure 135/71 O2 Sat by Pulse Oximetry - General Appearance General appearance: well-developed, appears stated age, chronically ill EENT: ATNC, PERRL, mucous membranes moist Neck: no JVD Respiratory: Present: Clear to Ascultation Cardiology: regular, S1S2 Gastrointestinal: normoactive bowel sounds Integumentary: no rash Neurologic: no focal deficit, alert and oriented x3, strength 5/5, CN 3-12 intact Psychiatric: mood/affect appropriate, cooperative - Lab 01/21/21 05:21 01/21/21 05:21 Most recent lab results Calcium 7.6 mg/dL (8.4-10.2) L 01/21/21 05:21 Medications & Allergies - Medications Allergies/Adverse Reactions: Allergies doxycycline Allergy (Verified 11/08/20 16:05) Unknown prochlorperazine edisylate [From Compazine] Allergy (Verified 11/08/20 16:05) Unknown Home Medications: Home Medications Medication Instructions Recorded Confirmed Last Taken Type Acetaminophen [Acetaminophen TAB] 650 mg PO Q4H PRN #30 tablet 04/06/18 02/18/20 Unknown Rx Aspirin EC [Halfprin EC] 81 mg PO QDAY #30 tablet. 11/10/20 Unknown Rx Gabapentin 300 mg PO BID #60 capsule 11/10/20 01/18/21 Rx Metoprolol [Lopressor TAB] 100 mg PO BID #60 tablet 11/10/20 01/18/21 Rx NIFEdipine XL [Procardia Xl] 60 mg PO BID 30 Days #60 tablet 11/10/20 01/17/21 Rx Sodium Bicarbonate 650 mg PO BID #60 tablet 11/10/20 Unknown Rx calcitrioL [Rocaltrol] 0.25 mcg PO QDAY #30 capsule 11/10/20 Unknown Rx cloNIDine [Catapres] 0.1 mg PO Q8HR #90 tablet 11/10/20 01/18/21 20:40 Rx minoxidiL [Loniten] 10 mg PO BID #60 tablet 11/10/20 01/18/21 08:45 Rx Active Medications: Generic Name Dose Route Start Last Admin Trade Name Freq PRN Reason Stop Dose Admin Acetaminophen 650 mg 01/20/21 01:34 Acetaminophen 325 Mg Tab PO Q4H PRN Pain MILD(1-3)/Fever >100.5/MCDONOUGH Albuterol 2.5 mg 01/20/21 01:34 Albuterol 2.5 Mg/3 Ml Nebu IH Q4HRT PRN Shortness Of Breath Aspirin 81 mg 01/20/21 10:00 01/22/21 10:35 Aspirin Ec 81 Mg Tab PO 81 mg QDAY KELLY Administration Baclofen 2.5 mg 01/21/21 10:00 01/22/21 10:36 Baclofen 10 Mg Tab PO 2.5 mg BID KELLY Administration Calcitriol 0.25 mcg 01/20/21 10:00 01/22/21 10:35 Calcitriol 0.25 Mcg Cap PO 0.25 mcg QDAY KELLY Administration Clonidine HCl 0.1 mg 01/20/21 06:00 01/22/21 06:00 Clonidine 0.1 Mg Tab PO Not Given Q8HR [facility] Famotidine 10 mg 01/20/21 10:00 01/22/21 10:35 Famotidine 10 Mg Tab PO 10 mg BID KELLY Administration Gabapentin 300 mg 01/20/21 10:00 01/22/21 10:36 Gabapentin 300 Mg Cap PO 300 mg BID KELLY Administration Heparin Sodium (Porcine) 5,000 unit 01/20/21 06:00 01/22/21 06:00 Heparin 5,000 Unit/1 Ml Vial SUB-Q Not Given Q8HR [facility] Hydralazine HCl 10 mg 01/20/21 01:35 01/20/21 15:37 Hydralazine 20 Mg/1 Ml Inj IV 10 mg Q6H PRN Administration htn Sodium Chloride 100 mls @ 999 mls/hr 01/20/21 10:25 Nacl 0.9% IV ALISON PRN Hypotension Metoprolol Tartrate 100 mg 01/20/21 10:00 01/22/21 10:35 Metoprolol Tartrate 100 Mg Tab PO 100 mg BID KELLY Administration Minoxidil 10 mg 01/20/21 10:00 01/22/21 10:35 Minoxidil 10 Mg Tab PO 10 mg BID KELLY Administration Morphine Sulfate 2 mg 01/22/21 04:19 01/22/21 04:29 Morphine 2 Mg/1 Ml Inj IV 2 mg Q5MIN PRN Administration Chest Pain unrelieved by NTG Nifedipine 60 mg 01/20/21 10:00 01/22/21 10:35 Nifedipine Xl 60 Mg Tab PO 60 mg BID KELLY Administration Nitroglycerin 0.4 mg 01/22/21 04:19 01/22/21 04:40 Nitroglycerin 0.4 Mg Tab Subl SL 0.4 mg .Q5MIN PRN Administration Chest Pain Ondansetron HCl 4 mg 01/20/21 01:34 Ondansetron 4 Mg/2 Ml Inj IV Q8H PRN Nausea And Vomiting Oxycodone/Acetaminophen 1 tab 01/20/21 11:54 01/22/21 10:36 Oxycodone /Acetaminophen 5-325mg Tab PO 1 tab Q8H PRN Administration Pain, Moderate (4-6) Sodium Bicarbonate 650 mg 01/20/21 10:00 01/22/21 10:35 Sodium Bicarbonate 650 Mg Tab PO 650 mg BID KELLY Administration Sodium Chloride 10 ml 01/20/21 10:00 01/22/21 10:36 Sodium Chloride 0.9% 10 Ml Flush Syringe IV 10 ml BID KELLY Administration Sodium Chloride 10 ml 01/20/21 01:34 Sodium Chloride 0.9% 10 Ml Flush Syringe IV PRN PRN LINE FLUSH
[2021-01-22] MEDS ORDERED: ALUM-MAG HYDROXIDE-SIMETHICONE 200-200-20MG/5ML ORAL LIQD 30 ML PO PRN (18:12)
[2021-01-22] MEDS: ACETAMINOPHEN 325 MG TAB PO PRN (22:08)
[2021-01-23] MEDS: MORPHINE 2 MG/1 ML INJ IV PRN ×2 (04:48→17:09)
[2021-01-23] MEDS: HEPARIN 5,000 UNIT/1 ML VIAL SUB-Q SCH ×3 (05:03→21:50)
[2021-01-23] MEDS: cloNIDine 0.1 MG TAB PO SCH ×3 (05:03→21:03)
[2021-01-23] MEDS ORDERED: IBUPROFEN 400 MG TAB PO ONE (05:55)
--- NOTE | 2021-01-23 08:42 | XRay Report ---
CHEST 1 VIEW INDICATION / CLINICAL INFORMATION: pneumonia. COMPARISON: 01/20/2021 FINDINGS: SUPPORT DEVICES: None. HEART / MEDIASTINUM: No significant abnormality. LUNGS / PLEURA: Mild interstitial pulmonary edema No pneumothorax. ADDITIONAL FINDINGS: No significant additional findings. IMPRESSION: Mild interstitial pulmonary edema has developed since 01/20/2021 Signer Name: Bakari Real MD FACR Signed: 01/23/2021 8:37 AM Workstation Name: [id number]
[2021-01-23] MEDS: MINOXIDIL 10 MG TAB PO SCH ×2 (09:29→21:02)
--- NOTE | 2021-01-23 10:00 | Progress Note ---
Assessment and Plan - Patient Problems (1) ESRD (end stage renal disease) on dialysis Current Visit: Yes Status: Chronic Plan to address problem: cont HD on MWF schedule. Outpatient HD arrangement as per case management, however due to his history of noncompliance it will be difficult to find a accepting clinic. If no accepting clinic found, pt needs to come to ER for HD treatments (2) Acidosis Current Visit: Yes Status: Acute Plan to address problem: corrected with HD (3) Anemia in chronic kidney disease (CKD) Current Visit: No Status: Acute Qualifiers: Chronic kidney disease stage: on chronic dialysis Qualified Code(s): N18.6 - End stage renal disease; D63.1 - Anemia in chronic kidney disease; Z99.2 - Dependence on renal dialysis Plan to address problem: treat with EPO on HD (4) Noncompliance of patient with renal dialysis Current Visit: Yes Status: Chronic Subjective Date of service: 01/23/21 Principal diagnosis: ESRD Interval history: pt seen and examined during HD, in no acute distress. Objective - Vital Signs Vital signs: Vital Signs - 12hr 01/23/21 01/23/21 05:24 08:31 Temperature 102.0 F H 99.5 F Pulse Rate 93 H 80 Respiratory 20 18 Rate Blood Pressure 138/79 115/58 O2 Sat by Pulse 98 98 Oximetry - General Appearance General appearance: well-developed, appears stated age, chronically ill EENT: ATNC, PERRL, mucous membranes moist Neck: no JVD Respiratory: Present: Clear to Ascultation Cardiology: regular, S1S2 Gastrointestinal: normoactive bowel sounds Integumentary: no rash, other (no edema ) Neurologic: no focal deficit, alert and oriented x3, strength 5/5, CN 3-12 intact Psychiatric: mood/affect appropriate, cooperative - Lab 01/21/21 05:21 01/21/21 05:21 Most recent lab results Calcium 7.6 mg/dL (8.4-10.2) L 01/21/21 05:21 Medications & Allergies - Medications Allergies/Adverse Reactions: Allergies doxycycline Allergy (Verified 11/08/20 16:05) Unknown prochlorperazine edisylate [From Compazine] Allergy (Verified 11/08/20 16:05) Unknown Home Medications: Home Medications Medication Instructions Recorded Confirmed Last Taken Type Acetaminophen [Acetaminophen TAB] 650 mg PO Q4H PRN #30 tablet 04/06/18 02/18/20 Unknown Rx Aspirin EC [Halfprin EC] 81 mg PO QDAY #30 tablet. 11/10/20 Unknown Rx Gabapentin 300 mg PO BID #60 capsule 11/10/20 01/18/21 Rx Metoprolol [Lopressor TAB] 100 mg PO BID #60 tablet 11/10/20 01/18/21 Rx NIFEdipine XL [Procardia Xl] 60 mg PO BID 30 Days #60 tablet 11/10/20 01/17/21 Rx Sodium Bicarbonate 650 mg PO BID #60 tablet 11/10/20 Unknown Rx calcitrioL [Rocaltrol] 0.25 mcg PO QDAY #30 capsule 11/10/20 Unknown Rx cloNIDine [Catapres] 0.1 mg PO Q8HR #90 tablet 11/10/20 01/18/21 20:40 Rx minoxidiL [Loniten] 10 mg PO BID #60 tablet 11/10/20 01/18/21 08:45 Rx Active Medications: Generic Name Dose Route Start Last Admin Trade Name Freq PRN Reason Stop Dose Admin Acetaminophen 650 mg 01/20/21 01:34 01/22/21 22:08 Acetaminophen 325 Mg Tab PO 650 mg Q4H PRN Administration Pain MILD(1-3)/Fever >100.5/MCDONOUGH Al Hydrox/Mg Hydrox/Simethicone 30 ml 01/22/21 18:12 01/22/21 18:33 Alum-Mag Hydroxide-Simethicone 595-477-20ix/5ml Oral Liqd 30 Ml PO 30 ml Q4H PRN Administration Indigestion Albuterol 2.5 mg 01/20/21 01:34 Albuterol 2.5 Mg/3 Ml Nebu IH Q4HRT PRN Shortness Of Breath Aspirin 81 mg 01/20/21 10:00 01/22/21 10:35 Aspirin Ec 81 Mg Tab PO 81 mg QDAY KELLY Administration Baclofen 2.5 mg 01/21/21 10:00 01/22/21 22:08 Baclofen 10 Mg Tab PO 2.5 mg BID KELLY Administration Calcitriol 0.25 mcg 01/20/21 10:00 01/22/21 10:35 Calcitriol 0.25 Mcg Cap PO 0.25 mcg QDAY KELLY Administration Clonidine HCl 0.1 mg 01/20/21 06:00 01/23/21 05:03 Clonidine 0.1 Mg Tab PO Not Given Q8HR [facility] Famotidine 10 mg 01/20/21 10:00 01/22/21 22:07 Famotidine 10 Mg Tab PO 10 mg BID [facility] Administration Gabapentin 300 mg 01/20/21 10:00 01/22/21 22:08 Gabapentin 300 Mg Cap PO 300 mg BID KELLY Administration Heparin Sodium (Porcine) 5,000 unit 01/20/21 06:00 01/23/21 05:03 Heparin 5,000 Unit/1 Ml Vial SUB-Q Not Given Q8HR [facility] Hydralazine HCl 10 mg 01/20/21 01:35 01/20/21 15:37 Hydralazine 20 Mg/1 Ml Inj IV 10 mg Q6H PRN Administration htn Sodium Chloride 100 mls @ 999 mls/hr 01/20/21 10:25 Nacl 0.9% IV ALISON PRN Hypotension Metoprolol Tartrate 100 mg 01/20/21 10:00 01/22/21 22:07 Metoprolol Tartrate 100 Mg Tab PO 100 mg BID [facility] Administration Minoxidil 10 mg 01/20/21 10:00 01/22/21 22:27 Minoxidil 10 Mg Tab PO Not Given BID [facility] Morphine Sulfate 2 mg 01/22/21 04:19 01/23/21 04:48 Morphine 2 Mg/1 Ml Inj IV 2 mg Q5MIN PRN Administration Chest Pain unrelieved by NTG Nifedipine 60 mg 01/20/21 10:00 01/22/21 22:07 Nifedipine Xl 60 Mg Tab PO 60 mg BID KELLY Administration Nitroglycerin 0.4 mg 01/22/21 04:19 01/22/21 04:40 Nitroglycerin 0.4 Mg Tab Subl SL 0.4 mg .Q5MIN PRN Administration Chest Pain Ondansetron HCl 4 mg 01/20/21 01:34 01/23/21 04:49 Ondansetron 4 Mg/2 Ml Inj IV 4 mg Q8H PRN Administration Nausea And Vomiting Oxycodone/Acetaminophen 1 tab 01/20/21 11:54 01/22/21 10:36 Oxycodone /Acetaminophen 5-325mg Tab PO 1 tab Q8H PRN Administration Pain, Moderate (4-6) Sodium Bicarbonate 650 mg 01/20/21 10:00 01/22/21 22:07 Sodium Bicarbonate 650 Mg Tab PO 650 mg BID KELLY Administration Sodium Chloride 10 ml 01/20/21 10:00 01/23/21 04:48 Sodium Chloride 0.9% 10 Ml Flush Syringe IV 10 ml BID KELLY Administration Sodium Chloride 10 ml 01/20/21 01:34 Sodium Chloride 0.9% 10 Ml Flush Syringe IV PRN PRN LINE FLUSH
--- NOTE | 2021-01-23 10:06 | Progress Note ---
Assessment and Plan Assessment and plan: #ESRD Patient has been noncompliant with hemodialysis He will need to have hemodialysis set up prior to discharge Case management is currently arranging for hemodialysis chair #Fever UA negative Chest x-ray ordered Blood culture pending Empirical antibiotics #Hypertension Continue home medications #Lupus Stable Outpatient follow-up with rheumatology #Leg spasms and pain Start baclofen-dose adjusted due to ESRD, Monitor #DVT prophylaxis-Heparin Full code History Interval history: Patient seen and examined at bedside this morning. Had a temperature of 103 Fahrenheit. Blood culture ordered Needs hemodialysis chair which is currently being arranged by case management Hospitalist Physical - Physical exam Narrative exam: VITAL SIGNS: Reviewed. GENERAL: Awake HEAD: No signs of head trauma. EYES: Pupils are equal. Extraocular motions intact. MOUTH: Oropharynx is normal. NECK: No adenopathy, no JVD. CHEST: Chest with diminished breath sounds bilaterally. No wheezes, rales, or rhonchi. CARDIAC: normal S1 and S2, without murmurs, gallops, or rubs. ABDOMEN: Soft, non tender and non distended. No rebound or guarding, and no masses palpated. Bowel Sounds normal. MUSCULOSKELETAL: No edema NEUROLOGIC EXAM: Alert and oriented x3. No focal neurologic deficits SKIN: No obvious lesions - Constitutional Vitals: Temp Pulse Resp BP Pulse Ox 99.5 F 80 18 115/58 98 01/23/21 08:31 01/23/21 08:31 01/23/21 08:31 01/23/21 08:31 01/23/21 08:31 HEART Score - HEART Score Troponin: Troponin T 0.020 ng/mL (0.00-0.029) 01/22/21 07:24 Results - Labs CBC & Chem 7: 01/21/21 05:21 01/21/21 05:21 Labs: Laboratory Last Values WBC 5.3 K/mm3 (4.5-11.0) 01/21/21 05: RBC 3.05 M/mm3 (3.65-5.03) L 01/21/21 05:21 Hgb 8.4 gm/dl (11.8-15.2) L 01/21/21 05:21 Hct 25.6 % (35.5-45.6) L 01/21/21 05:21 MCV 84 fl (84-94) 01/21/21 05:21 MCH 28 pg (28-32) 01/21/21 05:21 MCHC 33 % (32-34) 01/21/21 05:21 RDW 15.2 % (13.2-15.2) 01/21/21 05:21 Plt Count 162 K/mm3 (140-440) 01/21/21 05:21 Add Manual Diff Complete 01/21/21 05:21 Total Counted 100 01/21/21 05:21 Seg Neuts % (Manual) 74.0 % (40.0-70.0) H 01/21/21 05:21 Lymphocytes % (Manual) 18.0 % (13.4-35.0) 01/21/21 05:21 Reactive Lymphs % (Man) 1.0 % 01/21/21 05:21 Monocytes % (Manual) 4.0 % (0.0-7.3) 01/21/21 05:21 Eosinophils % (Manual) 2.0 % (0.0-4.3) 01/21/21 05:21 Basophils % (Manual) 1.0 % (0.0-1.8) 01/21/21 05:21 Nucleated RBC % Not Reportable 01/21/21 05:21 Seg Neutrophils # Man 3.9 K/mm3 (1.8-7.7) 01/21/21 05:21 Band Neutrophils # 0.0 K/mm3 01/21/21 05:21 Lymphocytes # (Manual) 1.0 K/mm3 (1.2-5.4) L 01/21/21 05:21 Abs React Lymphs (Man) 0.1 K/mm3 01/21/21 05:21 Monocytes # (Manual) 0.2 K/mm3 (0.0-0.8) 01/21/21 05:21 Eosinophils # (Manual) 0.1 K/mm3 (0.0-0.4) 01/21/21 05:21 Basophils # (Manual) 0.1 K/mm3 (0.0-0.1) 01/21/21 05:21 Metamyelocytes # 0.0 K/mm3 01/21/21 05:21 Myelocytes # 0.0 K/mm3 01/21/21 05:21 Promyelocytes # 0.0 K/mm3 01/21/21 05:21 Blast Cells # 0.0 K/mm3 01/21/21 05:21 WBC Morphology Not Reportable 01/21/21 05:21 Hypersegmented Neuts Not Reportable 01/21/21 05:21 Hyposegmented Neuts Not Reportable 01/21/21 05:21 Hypogranular Neuts Not Reportable 01/21/21 05:21 Smudge Cells Not Reportable 01/21/21 05:21 Toxic Granulation Not Reportable 01/21/21 05:21 Toxic Vacuolation Not Reportable 01/21/21 05:21 Dohle Bodies Not Reportable 01/21/21 05:21 Pelger-Huet Anomaly Not Reportable 01/21/21 05:21 Luc Rods Not Reportable 01/21/21 05:21 Platelet Estimate Consistent w auto 01/21/21 05:21 Clumped Platelets Not Reportable 01/21/21 05:21 Plt Clumps, EDTA Not Reportable 01/21/21 05:21 Large Platelets Not Reportable 01/21/21 05:21 Giant Platelets Not Reportable 01/21/21 05:21 Platelet Satelliting Not Reportable 01/21/21 05:21 Plt Morphology Comment Not Reportable 01/21/21 05:21 RBC Morphology Not Reportable 01/21/21 05:21 Dimorphic RBCs Not Reportable 01/21/21 05:21 Polychromasia Not Reportable 01/21/21 05:21 Hypochromasia Few 01/21/21 05:21 Poikilocytosis Not Reportable 01/21/21 05:21 Anisocytosis Few 01/21/21 05:21 Microcytosis Not Reportable 01/21/21 05:21 Macrocytosis Not Reportable 01/21/21 05:21 Spherocytes Not Reportable 01/21/21 05:21 Pappenheimer Bodies Not Reportable 01/21/21 05:21 Sickle Cells Not Reportable 01/21/21 05:21 Target Cells Not Reportable 01/21/21 05:21 Tear Drop Cells Not Reportable 01/21/21 05:21 Ovalocytes Not Reportable 01/21/21 05:21 Helmet Cells Not Reportable 01/21/21 05:21 [place] Bodies Not Reportable 01/21/21 05:21 [place] Rings Not Reportable 01/21/21 05:21 [place] Cells Not Reportable 01/21/21 05:21 Bite Cells Not Reportable 01/21/21 05:21 Crenated Cell Not Reportable 01/21/21 05:21 Elliptocytes Not Reportable 01/21/21 05:21 Acanthocytes (Spur) Not Reportable 01/21/21 05:21 Rouleaux Not Reportable 01/21/21 05:21 Hemoglobin C Crystals Not Reportable 01/21/21 05:21 Schistocytes Not Reportable 01/21/21 05:21 Malaria parasites Not Reportable 01/21/21 05:21 Elias Bodies Not Reportable 01/21/21 05:21 Hem Pathologist Commnt No 01/21/21 05:21 Sodium 141 mmol/L (137-145) 01/21/21 05:21 Potassium 4.1 mmol/L (3.6-5.0) 01/21/21 05:21 Chloride 100.4 mmol/L (98-107) 01/21/21 05:21 Carbon Dioxide 27 mmol/L (22-30) D 01/21/21 05:21 Anion Gap 18 mmol/L 01/21/21 05:21 BUN 41 mg/dL (9-20) H 01/21/21 05:21 Creatinine 6.2 mg/dL (0.8-1.3) H 01/21/21 05:21 Estimated GFR 12 ml/min 01/21/21 05:21 BUN/Creatinine Ratio 7 % 01/21/21 05:21 Glucose 106 mg/dL (75-100) H 01/21/21 05:21 Calcium 7.6 mg/dL (8.4-10.2) L 01/21/21 05:21 Total Bilirubin 0.30 mg/dL (0.1-1.2) 01/19/21 14:48 AST 19 units/L (5-40) 01/19/21 14:48 ALT 20 units/L (7-56) 01/19/21 14:48 Alkaline Phosphatase 114 units/L (35-129) 01/19/21 14:48 Troponin T 0.020 ng/mL (0.00-0.029) 01/22/21 07:24 Total Protein 8.1 g/dL (6.3-8.2) 01/19/21 14:48 Albumin 4.0 g/dL (3.9-5) 01/19/21 14:48 Albumin/Globulin Ratio 1.0 % 01/19/21 14:48 Coronavirus (PCR) Negative (Negative) 01/21/21 Unknown Hepatitis A IgM Ab Non-reactive (NonReactive) 01/20/21 13:52 Hep Bs Antigen Non-reactive (Negative) 01/20/21 13:52 Hep B Core IgM Ab Non-reactive (NonReactive) 01/20/21 13:52 Hepatitis C Antibody Reactive (NonReactive) A 01/20/21 13:52 Microbiology: Microbiology 01/23/21 06:31 Peripheral/Venous Blood Culture - Preliminary Culture in Progress 01/23/21 06:31 Peripheral/Venous Blood Culture - Preliminary Culture in Progress Dave/IV: Voiding Method Toilet Active Medications - Current Medications Current Medications: Generic Name Dose Route Start Last Admin Trade Name Freq PRN Reason Stop Dose Admin Acetaminophen 650 mg 01/20/21 01:34 01/22/21 22:08 Acetaminophen 325 Mg Tab PO 650 mg Q4H PRN Administration Pain MILD(1-3)/Fever >100.5/MCDON[place] Al Hydrox/Mg Hydrox/Simethicone 30 ml 01/22/21 18:12 01/22/21 18:33 Alum-Mag Hydroxide-Simethicone 610-058-85ym/5ml Oral Liqd 30 Ml PO 30 ml Q4H PRN Administration Indigestion Albuterol 2.5 mg 01/20/21 01:34 Albuterol 2.5 Mg/3 Ml Nebu IH Q4HRT PRN Shortness Of Breath Aspirin 81 mg 01/20/21 10:00 01/22/21 10:35 Aspirin Ec 81 Mg Tab PO 81 mg QDAY KELLY Administration Baclofen 2.5 mg 01/21/21 10:00 01/22/21 22:08 Baclofen 10 Mg Tab PO 2.5 mg BID KELLY Administration Calcitriol 0.25 mcg 01/20/21 10:00 01/22/21 10:35 Calcitriol 0.25 Mcg Cap PO 0.25 mcg QDAY KELLY Administration Clonidine HCl 0.1 mg 01/20/21 06:00 01/23/21 05:03 Clonidine 0.1 Mg Tab PO Not Given Q8HR KELLY Famotidine 10 mg 01/20/21 10:00 01/22/21 22:07 Famotidine 10 Mg Tab PO 10 mg BID KELLY Administration Gabapentin 300 mg 01/20/21 10:00 01/22/21 22:08 Gabapentin 300 Mg Cap PO 300 mg BID KELLY Administration Heparin Sodium (Porcine) 5,000 unit 01/20/21 06:00 01/23/21 05:03 Heparin 5,000 Unit/1 Ml Vial SUB-Q Not Given Q8HR KELLY Hydralazine HCl 10 mg 01/20/21 01:35 01/20/21 15:37 Hydralazine 20 Mg/1 Ml Inj IV 10 mg Q6H PRN Administration htn Sodium Chloride 100 mls @ 999 mls/hr 01/20/21 10:25 Nacl 0.9% IV ALISON PRN Hypotension Metoprolol Tartrate 100 mg 01/20/21 10:00 01/22/21 22:07 Metoprolol Tartrate 100 Mg Tab PO 100 mg BID KELLY Administration Minoxidil 10 mg 01/20/21 10:00 01/22/21 22:27 Minoxidil 10 Mg Tab PO Not Given BID [facility] Morphine Sulfate 2 mg 01/22/21 04:19 01/23/21 04:48 Morphine 2 Mg/1 Ml Inj IV 2 mg Q5MIN PRN Administration Chest Pain unrelieved by NTG Nifedipine 60 mg 01/20/21 10:00 01/22/21 22:07 Nifedipine Xl 60 Mg Tab PO 60 mg BID [facility] Administration Nitroglycerin 0.4 mg 01/22/21 04:19 01/22/21 04:40 Nitroglycerin 0.4 Mg Tab Subl SL 0.4 mg .Q5MIN PRN Administration Chest Pain Ondansetron HCl 4 mg 01/20/21 01:34 01/23/21 04:49 Ondansetron 4 Mg/2 Ml Inj IV 4 mg Q8H PRN Administration Nausea And Vomiting Oxycodone/Acetaminophen 1 tab 01/20/21 11:54 01/22/21 10:36 Oxycodone /Acetaminophen 5-325mg Tab PO 1 tab Q8H PRN Administration Pain, Moderate (4-6) Sodium Bicarbonate 650 mg 01/20/21 10:00 01/22/21 22:07 Sodium Bicarbonate 650 Mg Tab PO 650 mg BID KELLY Administration Sodium Chloride 10 ml 01/20/21 10:00 01/23/21 04:48 Sodium Chloride 0.9% 10 Ml Flush Syringe IV 10 ml BID KELLY Administration Sodium Chloride 10 ml 01/20/21 01:34 Sodium Chloride 0.9% 10 Ml Flush Syringe IV PRN PRN LINE FLUSH
[2021-01-23] MEDS: BACLOFEN 10 MG TAB PO SCH ×2 (10:28→21:02)
[2021-01-23] MEDS: GABAPENTIN 300 MG CAP PO SCH ×2 (10:28→21:02)
[2021-01-23] MEDS: SODIUM BICARBONATE 650 MG TAB PO SCH ×2 (10:30→21:09)
[2021-01-23] MEDS: NIFEdipine XL 60 MG TAB PO SCH ×2 (10:30→21:50)
[2021-01-23] MEDS ORDERED: VANCOMYCIN PHARMACY TO DOSE IV SCH (11:00)
[2021-01-23] MEDS ORDERED: VANCOMYCIN 1,500 MG in SODIUM CHLORIDE 0.9% 500 ML 500 ML IV ONE ×2 (11:00→21:00)
[2021-01-23] MEDS: METOPROLOL TARTRATE 100 MG TAB PO SCH ×2 (11:29→21:03)
[2021-01-23] MEDS: FAMOTIDINE 10 MG TAB PO SCH ×2 (11:29→21:09)
[2021-01-23] MEDS: CALCITRIOL 0.25 MCG CAP PO SCH (11:30)
[2021-01-23] MEDS: ASPIRIN EC 81 MG TAB PO SCH (17:07)
[2021-01-23] MEDS: ACETAMINOPHEN 325 MG TAB PO PRN (17:07)
[2021-01-23] MEDS ORDERED: LACTULOSE 20 GM/30 ML ORAL LIQD PO ONE (20:59)
[2021-01-23] MEDS: oxyCODONE /ACETAMINOPHEN 5-325MG TAB PO PRN (23:56)
[2021-01-24] MEDS: MORPHINE 2 MG/1 ML INJ IV PRN ×5 (01:59→23:32)
[2021-01-24 04:55] LABS: Bilirubin,Urine NEG (Negative); Blood,Urine NEG (Negative); Color,Urine Straw (Yellow); Urobilinogen,Urine < 2.0 mg/dL (<2.0)
[2021-01-24] MEDS: HEPARIN 5,000 UNIT/1 ML VIAL SUB-Q SCH ×4 (05:09→21:09)
[2021-01-24] MEDS: cloNIDine 0.1 MG TAB PO SCH ×4 (05:09→21:09)
[2021-01-24] MEDS: SODIUM BICARBONATE 650 MG TAB PO SCH ×2 (09:13→21:49)
[2021-01-24] MEDS: METOPROLOL TARTRATE 100 MG TAB PO SCH ×2 (09:14→21:10)
[2021-01-24] MEDS: ASPIRIN EC 81 MG TAB PO SCH (09:14)
[2021-01-24] MEDS: BACLOFEN 10 MG TAB PO SCH ×3 (09:14→21:11)
[2021-01-24] MEDS: NIFEdipine XL 60 MG TAB PO SCH ×2 (09:14→21:10)
[2021-01-24] MEDS: GABAPENTIN 300 MG CAP PO SCH ×2 (09:14→21:49)
[2021-01-24] MEDS: FAMOTIDINE 10 MG TAB PO SCH ×2 (09:15→21:10)
[2021-01-24] MEDS: MINOXIDIL 10 MG TAB PO SCH ×2 (09:15→21:09)
[2021-01-24] MEDS: CALCITRIOL 0.25 MCG CAP PO SCH (09:15)
--- NOTE | 2021-01-24 09:40 | Progress Note ---
Assessment and Plan Assessment and plan: #ESRD Patient has been noncompliant with hemodialysis He will need to have hemodialysis set up prior to discharge Case management is currently arranging for hemodialysis chair #Fever UA negative Chest x-ray ordered Blood culture NTD Empirical antibiotics #Hypertension Continue home medications #Lupus Stable Outpatient follow-up with rheumatology #Leg spasms and pain Start baclofen-dose adjusted due to ESRD, Monitor #DVT prophylaxis-Heparin Full code History Interval history: Patient seen and examined at bedside this morning. Had a temperature of 103 Fahrenheit. Blood culture ordered Needs hemodialysis chair which is currently being arranged by case management Hospitalist Physical - Physical exam Narrative exam: VITAL SIGNS: Reviewed. GENERAL: Awake HEAD: No signs of head trauma. EYES: Pupils are equal. Extraocular motions intact. MOUTH: Oropharynx is normal. NECK: No adenopathy, no JVD. CHEST: Chest with diminished breath sounds bilaterally. No wheezes, rales, or rhonchi. CARDIAC: normal S1 and S2, without murmurs, gallops, or rubs. ABDOMEN: Soft, non tender and non distended. No rebound or guarding, and no masses palpated. Bowel Sounds normal. MUSCULOSKELETAL: No edema NEUROLOGIC EXAM: Alert and oriented x3. No focal neurologic deficits SKIN: No obvious lesions - Constitutional Vitals: Temp Pulse Resp BP Pulse Ox 99.2 F 93 H 20 157/79 99 01/24/21 04:10 01/24/21 04:10 01/24/21 04:10 01/24/21 04:10 01/24/21 04:10 HEART Score - HEART Score Troponin: Troponin T 0.020 ng/mL (0.00-0.029) 01/22/21 07:24 Results - Labs CBC & Chem 7: 01/21/21 05:21 01/21/21 05:21 Labs: Laboratory Last Values WBC 5.3 K/mm3 (4.5-11.0) 01/21/21 05: RBC 3.05 M/mm3 (3.65-5.03) L 01/21/21 05:21 Hgb 8.4 gm/dl (11.8-15.2) L 01/21/21 05:21 Hct 25.6 % (35.5-45.6) L 01/21/21 05:21 MCV 84 fl (84-94) 01/21/21 05:21 MCH 28 pg (28-32) 01/21/21 05:21 MCHC 33 % (32-34) 01/21/21 05:21 RDW 15.2 % (13.2-15.2) 01/21/21 05:21 Plt Count 162 K/mm3 (140-440) 01/21/21 05:21 Add Manual Diff Complete 01/21/21 05:21 Total Counted 100 01/21/21 05:21 Seg Neuts % (Manual) 74.0 % (40.0-70.0) H 01/21/21 05:21 Lymphocytes % (Manual) 18.0 % (13.4-35.0) 01/21/21 05:21 Reactive Lymphs % (Man) 1.0 % 01/21/21 05:21 Monocytes % (Manual) 4.0 % (0.0-7.3) 01/21/21 05:21 Eosinophils % (Manual) 2.0 % (0.0-4.3) 01/21/21 05:21 Basophils % (Manual) 1.0 % (0.0-1.8) 01/21/21 05:21 Nucleated RBC % Not Reportable 01/21/21 05:21 Seg Neutrophils # Man 3.9 K/mm3 (1.8-7.7) 01/21/21 05:21 Band Neutrophils # 0.0 K/mm3 01/21/21 05:21 Lymphocytes # (Manual) 1.0 K/mm3 (1.2-5.4) L 01/21/21 05:21 Abs React Lymphs (Man) 0.1 K/mm3 01/21/21 05:21 Monocytes # (Manual) 0.2 K/mm3 (0.0-0.8) 01/21/21 05:21 Eosinophils # (Manual) 0.1 K/mm3 (0.0-0.4) 01/21/21 05:21 Basophils # (Manual) 0.1 K/mm3 (0.0-0.1) 01/21/21 05:21 Metamyelocytes # 0.0 K/mm3 01/21/21 05:21 Myelocytes # 0.0 K/mm3 01/21/21 05:21 Promyelocytes # 0.0 K/mm3 01/21/21 05:21 Blast Cells # 0.0 K/mm3 01/21/21 05:21 WBC Morphology Not Reportable 01/21/21 05:21 Hypersegmented Neuts Not Reportable 01/21/21 05:21 Hyposegmented Neuts Not Reportable 01/21/21 05:21 Hypogranular Neuts Not Reportable 01/21/21 05:21 Smudge Cells Not Reportable 01/21/21 05:21 Toxic Granulation Not Reportable 01/21/21 05:21 Toxic Vacuolation Not Reportable 01/21/21 05:21 Dohle Bodies Not Reportable 01/21/21 05:21 Pelger-Huet Anomaly Not Reportable 01/21/21 05:21 Luc Rods Not Reportable 01/21/21 05:21 Platelet Estimate Consistent w auto 01/21/21 05:21 Clumped Platelets Not Reportable 01/21/21 05:21 Plt Clumps, EDTA Not Reportable 01/21/21 05:21 Large Platelets Not Reportable 01/21/21 05:21 Giant Platelets Not Reportable 01/21/21 05:21 Platelet Satelliting Not Reportable 01/21/21 05:21 Plt Morphology Comment Not Reportable 01/21/21 05:21 RBC Morphology Not Reportable 01/21/21 05:21 Dimorphic RBCs Not Reportable 01/21/21 05:21 Polychromasia Not Reportable 01/21/21 05:21 Hypochromasia Few 01/21/21 05:21 Poikilocytosis Not Reportable 01/21/21 05:21 Anisocytosis Few 01/21/21 05:21 Microcytosis Not Reportable 01/21/21 05:21 Macrocytosis Not Reportable 01/21/21 05:21 Spherocytes Not Reportable 01/21/21 05:21 Pappenheimer Bodies Not Reportable 01/21/21 05:21 Sickle Cells Not Reportable 01/21/21 05:21 Target Cells Not Reportable 01/21/21 05:21 Tear Drop Cells Not Reportable 01/21/21 05:21 Ovalocytes Not Reportable 01/21/21 05:21 Helmet Cells Not Reportable 01/21/21 05:21 Muñoz-Lowes Bodies Not Reportable 01/21/21 05:21 Camden Rings Not Reportable 01/21/21 05:21 Mona Cells Not Reportable 01/21/21 05:21 Bite Cells Not Reportable 01/21/21 05:21 Crenated Cell Not Reportable 01/21/21 05:21 Elliptocytes Not Reportable 01/21/21 05:21 Acanthocytes (Spur) Not Reportable 01/21/21 05:21 Rouleaux Not Reportable 01/21/21 05:21 Hemoglobin C Crystals Not Reportable 01/21/21 05:21 Schistocytes Not Reportable 01/21/21 05:21 Malaria parasites Not Reportable 01/21/21 05:21 Elias Bodies Not Reportable 01/21/21 05:21 Hem Pathologist Commnt No 01/21/21 05:21 Sodium 141 mmol/L (137-145) 01/21/21 05:21 Potassium 4.1 mmol/L (3.6-5.0) 01/21/21 05:21 Chloride 100.4 mmol/L (98-107) 01/21/21 05:21 Carbon Dioxide 27 mmol/L (22-30) D 01/21/21 05:21 Anion Gap 18 mmol/L 01/21/21 05:21 BUN 41 mg/dL (9-20) H 01/21/21 05:21 Creatinine 6.2 mg/dL (0.8-1.3) H 01/21/21 05:21 Estimated GFR 12 ml/min 01/21/21 05:21 BUN/Creatinine Ratio 7 % 01/21/21 05:21 Glucose 106 mg/dL (75-100) H 01/21/21 05:21 Calcium 7.6 mg/dL (8.4-10.2) L 01/21/21 05:21 Total Bilirubin 0.30 mg/dL (0.1-1.2) 01/19/21 14:48 AST 19 units/L (5-40) 01/19/21 14:48 ALT 20 units/L (7-56) 01/19/21 14:48 Alkaline Phosphatase 114 units/L (35-129) 01/19/21 14:48 Troponin T 0.020 ng/mL (0.00-0.029) 01/22/21 07:24 Total Protein 8.1 g/dL (6.3-8.2) 01/19/21 14:48 Albumin 4.0 g/dL (3.9-5) 01/19/21 14:48 Albumin/Globulin Ratio 1.0 % 01/19/21 14:48 Urine Color Straw (Yellow) 01/24/21 04:15 Urine Turbidity Clear (Clear) 01/24/21 04:15 Urine pH 9.0 (5.0-7.0) H 01/24/21 04:15 Ur Specific [place] 1.006 (1.003-1.030) 01/24/21 04:15 Urine Protein 100 mg/dl mg/dL (Negative) 01/24/21 04:15 Urine Glucose (UA) 50 mg/dL (Negative) 01/24/21 04:15 Urine Ketones Neg mg/dL (Negative) 01/24/21 04:15 Urine Blood Neg (Negative) 01/24/21 04:15 Urine Nitrite Neg (Negative) 01/24/21 04:15 Urine Bilirubin Neg (Negative) 01/24/21 04:15 Urine Urobilinogen < 2.0 mg/dL (<2.0) 01/24/21 04:15 Ur Leukocyte Esterase Neg (Negative) 01/24/21 04:15 Urine WBC (Auto) 1.0 /HPF (0.0-6.0) 01/24/21 04:15 Urine RBC (Auto) 1.0 /HPF (0.0-6.0) 01/24/21 04:15 Coronavirus (PCR) Negative (Negative) 01/21/21 Unknown Hepatitis A IgM Ab Non-reactive (NonReactive) 01/20/21 13:52 Hep Bs Antigen Non-reactive (Negative) 01/20/21 13:52 Hep B Core IgM Ab Non-reactive (NonReactive) 01/20/21 13:52 Hepatitis C Antibody Reactive (NonReactive) A 01/20/21 13:52 Microbiology: Microbiology 01/23/21 06:31 Peripheral/Venous Blood Culture - Preliminary NO GROWTH AFTER 24 HOURS 01/23/21 06:31 Peripheral/Venous Blood Culture - Preliminary NO GROWTH AFTER 24 HOURS Dave/IV: Voiding Method Toilet Active Medications - Current Medications Current Medications: Generic Name Dose Route Start Last Admin Trade Name Freq PRN Reason Stop Dose Admin Acetaminophen 650 mg 01/20/21 01:34 01/23/21 17:07 Acetaminophen 325 Mg Tab PO 650 mg Q4H PRN Administration Pain MILD(1-3)/Fever >100.5/MCDONOUGH Al Hydrox/Mg Hydrox/Simethicone 30 ml 01/22/21 18:12 01/22/21 18:33 Alum-Mag Hydroxide-Simethicone [phone]/5ml Oral Liqd 30 Ml PO 30 ml Q4H PRN Administration Indigestion Albuterol 2.5 mg 01/20/21 01:34 Albuterol 2.5 Mg/3 Ml Nebu IH Q4HRT PRN Shortness Of Breath Aspirin 81 mg 01/20/21 10:00 01/24/21 09:14 Aspirin Ec 81 Mg Tab PO 81 mg QDAY KELLY Administration Baclofen 2.5 mg 01/21/21 10:00 01/24/21 09:17 Baclofen 10 Mg Tab PO 2.5 mg BID KELLY Administration Calcitriol 0.25 mcg 01/20/21 10:00 01/24/21 09:15 Calcitriol 0.25 Mcg Cap PO Not Given QDAY KELLY Clonidine HCl 0.1 mg 01/20/21 06:00 01/24/21 05:09 Clonidine 0.1 Mg Tab PO Not Given Q8HR KELLY Famotidine 10 mg 01/20/21 10:00 01/24/21 09:15 Famotidine 10 Mg Tab PO Not Given BID KELLY Gabapentin 300 mg 01/20/21 10:00 01/24/21 09:14 Gabapentin 300 Mg Cap PO 300 mg BID KELLY Administration Heparin Sodium (Porcine) 5,000 unit 01/20/21 06:00 01/24/21 05:09 Heparin 5,000 Unit/1 Ml Vial SUB-Q Not Given Q8HR KELLY Hydralazine HCl 10 mg 01/20/21 01:35 01/20/21 15:37 Hydralazine 20 Mg/1 Ml Inj IV 10 mg Q6H PRN Administration htn Sodium Chloride 100 mls @ 999 mls/hr 01/20/21 10:25 Nacl 0.9% IV ALISON PRN Hypotension Metoprolol Tartrate 100 mg 01/20/21 10:00 01/24/21 09:14 Metoprolol Tartrate 100 Mg Tab PO 100 mg BID KELLY Administration Minoxidil 10 mg 01/20/21 10:00 01/24/21 09:15 Minoxidil 10 Mg Tab PO Not Given BID KELLY Morphine Sulfate 2 mg 01/22/21 04:19 01/23/21 17:09 Morphine 2 Mg/1 Ml Inj IV 2 mg Q5MIN PRN Administration Chest Pain unrelieved by NTG Morphine Sulfate 2 mg 01/24/21 01:53 01/24/21 06:01 Morphine 2 Mg/1 Ml Inj IV 2 mg Q4H PRN Administration Pain, Moderate (4-6) Nifedipine 60 mg 01/20/21 10:00 01/24/21 09:14 Nifedipine Xl 60 Mg Tab PO 60 mg BID KELLY Administration Nitroglycerin 0.4 mg 01/22/21 04:19 01/22/21 04:40 Nitroglycerin 0.4 Mg Tab Subl SL 0.4 mg .Q5MIN PRN Administration Chest Pain Ondansetron HCl 4 mg 01/20/21 01:34 01/23/21 04:49 Ondansetron 4 Mg/2 Ml Inj IV 4 mg Q8H PRN Administration Nausea And Vomiting Oxycodone/Acetaminophen 1 tab 01/20/21 11:54 01/23/21 23:56 Oxycodone /Acetaminophen 5-325mg Tab PO 1 tab Q8H PRN Administration Pain, Moderate (4-6) Sodium Bicarbonate 650 mg 01/20/21 10:00 01/24/21 09:13 Sodium Bicarbonate 650 Mg Tab PO 650 mg BID KELLY Administration Sodium Chloride 10 ml 01/20/21 10:00 01/24/21 09:16 Sodium Chloride 0.9% 10 Ml Flush Syringe IV 10 ml BID KELLY Administration Sodium Chloride 10 ml 01/20/21 01:34 Sodium Chloride 0.9% 10 Ml Flush Syringe IV PRN PRN LINE FLUSH
--- NOTE | 2021-01-24 09:58 | Progress Note ---
Assessment and Plan - Patient Problems (1) ESRD (end stage renal disease) on dialysis Current Visit: Yes Status: Chronic Plan to address problem: cont HD on MWF schedule. Outpatient HD arrangement as per case management, however due to his history of noncompliance it will be difficult to find a accepting clinic. If no accepting clinic found, pt needs to come to ER for HD treatments (2) Acidosis Current Visit: Yes Status: Acute Plan to address problem: corrected with HD (3) Anemia in chronic kidney disease (CKD) Current Visit: No Status: Acute Qualifiers: Chronic kidney disease stage: on chronic dialysis Qualified Code(s): N18.6 - End stage renal disease; D63.1 - Anemia in chronic kidney disease; Z99.2 - Dependence on renal dialysis Plan to address problem: treat with EPO on HD (4) Noncompliance of patient with renal dialysis Current Visit: Yes Status: Chronic Subjective Date of service: 01/24/21 Principal diagnosis: ESRD Interval history: pt awake, alert, in no acute distress. Objective - Vital Signs Vital signs: Vital Signs - 12hr 01/23/21 01/24/21 22:00 04:10 Temperature 99.4 F 99.2 F Pulse Rate 97 H 93 H Respiratory 20 20 Rate Blood Pressure 151/76 157/79 O2 Sat by Pulse 94 99 Oximetry - General Appearance General appearance: well-developed, appears stated age, chronically ill EENT: ATNC, PERRL, mucous membranes moist Neck: no JVD Respiratory: Present: Clear to Ascultation Cardiology: regular, S1S2 Gastrointestinal: normoactive bowel sounds Integumentary: no rash Neurologic: no focal deficit, alert and oriented x3, strength 5/5, CN 3-12 intact Psychiatric: mood/affect appropriate, cooperative - Lab 01/21/21 05:21 01/21/21 05:21 Most recent lab results Calcium 7.6 mg/dL (8.4-10.2) L 01/21/21 05:21 Medications & Allergies - Medications Allergies/Adverse Reactions: Allergies doxycycline Allergy (Verified 11/08/20 16:05) Unknown prochlorperazine edisylate [From Compazine] Allergy (Verified 11/08/20 16:05) Unknown Home Medications: Home Medications Medication Instructions Recorded Confirmed Last Taken Type Acetaminophen [Acetaminophen TAB] 650 mg PO Q4H PRN #30 tablet 04/06/18 02/18/20 Unknown Rx Aspirin EC [Halfprin EC] 81 mg PO QDAY #30 tablet. 11/10/20 Unknown Rx Gabapentin 300 mg PO BID #60 capsule 11/10/20 01/18/21 Rx Metoprolol [Lopressor TAB] 100 mg PO BID #60 tablet 11/10/20 01/18/21 Rx NIFEdipine XL [Procardia Xl] 60 mg PO BID 30 Days #60 tablet 11/10/20 01/17/21 Rx Sodium Bicarbonate 650 mg PO BID #60 tablet 11/10/20 Unknown Rx calcitrioL [Rocaltrol] 0.25 mcg PO QDAY #30 capsule 11/10/20 Unknown Rx cloNIDine [Catapres] 0.1 mg PO Q8HR #90 tablet 11/10/20 01/18/21 20:40 Rx minoxidiL [Loniten] 10 mg PO BID #60 tablet 11/10/20 01/18/21 08:45 Rx Active Medications: Generic Name Dose Route Start Last Admin Trade Name Freq PRN Reason Stop Dose Admin Acetaminophen 650 mg 01/20/21 01:34 01/23/21 17:07 Acetaminophen 325 Mg Tab PO 650 mg Q4H PRN Administration Pain MILD(1-3)/Fever >100.5/MCDONOUGH Al Hydrox/Mg Hydrox/Simethicone 30 ml 01/22/21 18:12 01/22/21 18:33 Alum-Mag Hydroxide-Simethicone [id number]/5ml Oral Liqd 30 Ml PO 30 ml Q4H PRN Administration Indigestion Albuterol 2.5 mg 01/20/21 01:34 Albuterol 2.5 Mg/3 Ml Nebu IH Q4HRT PRN Shortness Of Breath Aspirin 81 mg 01/20/21 10:00 01/24/21 09:14 Aspirin Ec 81 Mg Tab PO 81 mg QDAY KELLY Administration Baclofen 2.5 mg 01/21/21 10:00 01/24/21 09:17 Baclofen 10 Mg Tab PO 2.5 mg BID KELLY Administration Calcitriol 0.25 mcg 01/20/21 10:00 01/24/21 09:15 Calcitriol 0.25 Mcg Cap PO Not Given QDAY KELLY Clonidine HCl 0.1 mg 01/20/21 06:00 01/24/21 05:09 Clonidine 0.1 Mg Tab PO Not Given Q8HR [facility] Famotidine 10 mg 01/20/21 10:00 01/24/21 09:15 Famotidine 10 Mg Tab PO Not Given BID [facility] Gabapentin 300 mg 01/20/21 10:00 01/24/21 09:14 Gabapentin 300 Mg Cap PO 300 mg BID KELLY Administration Heparin Sodium (Porcine) 5,000 unit 01/20/21 06:00 01/24/21 05:09 Heparin 5,000 Unit/1 Ml Vial SUB-Q Not Given Q8HR [facility] Hydralazine HCl 10 mg 01/20/21 01:35 01/20/21 15:37 Hydralazine 20 Mg/1 Ml Inj IV 10 mg Q6H PRN Administration htn Sodium Chloride 100 mls @ 999 mls/hr 01/20/21 10:25 Nacl 0.9% IV ALISON PRN Hypotension Metoprolol Tartrate 100 mg 01/20/21 10:00 01/24/21 09:14 Metoprolol Tartrate 100 Mg Tab PO 100 mg BID [facility] Administration Minoxidil 10 mg 01/20/21 10:00 01/24/21 09:15 Minoxidil 10 Mg Tab PO Not Given BID [facility] Morphine Sulfate 2 mg 01/22/21 04:19 01/23/21 17:09 Morphine 2 Mg/1 Ml Inj IV 2 mg Q5MIN PRN Administration Chest Pain unrelieved by NTG Morphine Sulfate 2 mg 01/24/21 01:53 01/24/21 06:01 Morphine 2 Mg/1 Ml Inj IV 2 mg Q4H PRN Administration Pain, Moderate (4-6) Nifedipine 60 mg 01/20/21 10:00 01/24/21 09:14 Nifedipine Xl 60 Mg Tab PO 60 mg BID [facility] Administration Nitroglycerin 0.4 mg 01/22/21 04:19 01/22/21 04:40 Nitroglycerin 0.4 Mg Tab Subl SL 0.4 mg .Q5MIN PRN Administration Chest Pain Ondansetron HCl 4 mg 01/20/21 01:34 01/23/21 04:49 Ondansetron 4 Mg/2 Ml Inj IV 4 mg Q8H PRN Administration Nausea And Vomiting Oxycodone/Acetaminophen 1 tab 01/20/21 11:54 01/23/21 23:56 Oxycodone /Acetaminophen 5-325mg Tab PO 1 tab Q8H PRN Administration Pain, Moderate (4-6) Sodium Bicarbonate 650 mg 01/20/21 10:00 01/24/21 09:13 Sodium Bicarbonate 650 Mg Tab PO 650 mg BID KELLY Administration Sodium Chloride 10 ml 01/20/21 10:00 01/24/21 09:16 Sodium Chloride 0.9% 10 Ml Flush Syringe IV 10 ml BID KELLY Administration Sodium Chloride 10 ml 01/20/21 01:34 Sodium Chloride 0.9% 10 Ml Flush Syringe IV PRN PRN LINE FLUSH
--- NOTE | 2021-01-24 10:27 | Electrocardiograph Report ---
[facility] Test Date: 2021-01-22 Test Time: 04:31:51 Pat Name: AYANNA DEJESUS Department: Room: A377 Gender: M Medical Billing Supervisor: [id number] : 1965 Requested By: CALIN AVILA Order Number: [id number] Reading MD: Abdullahi Mitchell Measurements Intervals [place] Rate: 87 P: 57 NE: 138 QRS: -20 QRSD: 91 T: 64 QT: 384 QTc: 463 Interpretive Statements Sinus rhythm Low voltage, extremity leads No previous ECG available for comparison Electronically Signed On 01-24-2021 10:26:54 EDT by Abdullahi Mitchell
--- NOTE | 2021-01-24 10:31 | Electrocardiograph Report ---
[facility] Test Date: 2021-01-22 Test Time: 17:57:08 Pat Name: AYANNA DEJESUS Department: Room: A377 Gender: M [employer]rication Mig Welder: NERY MARISCAL : 1965 Requested By: RADHA HUSSEIN Order Number: [id number] Reading MD: Abdullahi Mitchell Measurements Intervals [place] Rate: 94 P: 55 NE: 134 QRS: -24 QRSD: 91 T: 53 QT: 357 QTc: 448 Interpretive Statements Sinus rhythm No significant change from EKG done earlier today. Electronically Signed On 01-24-2021 10:31:09 EDT by Abdullahi Mitchell
[2021-01-24] MEDS: oxyCODONE /ACETAMINOPHEN 5-325MG TAB PO PRN (13:47)
[2021-01-24] MEDS: hydrALAZINE 20 MG/1 ML INJ IV PRN (22:17)
[2021-01-25] MEDS: HEPARIN 5,000 UNIT/1 ML VIAL SUB-Q SCH ×3 (05:24→22:22)
[2021-01-25] MEDS: cloNIDine 0.1 MG TAB PO SCH (05:24)
[2021-01-25] MEDS: MORPHINE 2 MG/1 ML INJ IV PRN ×4 (06:31→22:22)
--- NOTE | 2021-01-25 09:06 | Progress Note ---
Assessment and Plan - Patient Problems (1) ESRD (end stage renal disease) on dialysis Current Visit: Yes Status: Chronic Plan to address problem: cont HD on MWF schedule. Outpatient HD arrangement as per case management, however due to his history of noncompliance it will be difficult to find a accepting clinic. If no accepting clinic found, pt needs to come to ER for HD treatments (2) Acidosis Current Visit: Yes Status: Acute Plan to address problem: corrected with HD (3) Anemia in chronic kidney disease (CKD) Current Visit: No Status: Acute Qualifiers: Qualified Code(s): N18.6 - End stage renal disease; D63.1 - Anemia in chronic kidney disease; Z99.2 - Dependence on renal dialysis Plan to address problem: treat with EPO on HD (4) Noncompliance of patient with renal dialysis Current Visit: Yes Status: Chronic Subjective Date of service: 01/25/21 Principal diagnosis: ESRD Interval history: pt awake, alert, in no acute distress. Objective - Vital Signs Vital signs: Vital Signs - 12hr 01/24/21 01/24/21 01/25/21 21:57 23:29 04:24 Temperature 98.2 F 98.9 F Pulse Rate 87 86 Respiratory 20 18 Rate Blood Pressure 177/87 153/73 129/66 O2 Sat by Pulse 97 98 Oximetry - General Appearance General appearance: well-developed, appears stated age, chronically ill EENT: ATNC, PERRL, mucous membranes moist Neck: no JVD Respiratory: Present: Clear to Ascultation Cardiology: regular, S1S2 Gastrointestinal: normoactive bowel sounds Integumentary: no rash, other (no edema ) Neurologic: no focal deficit, alert and oriented x3, strength 5/5, CN 3-12 intact Psychiatric: mood/affect appropriate, cooperative - Lab 01/21/21 05:21 01/21/21 05:21 Most recent lab results Calcium 7.6 mg/dL (8.4-10.2) L 01/21/21 05:21 Medications & Allergies - Medications Allergies/Adverse Reactions: Allergies doxycycline Allergy (Verified 11/08/20 16:05) Unknown prochlorperazine edisylate [From Compazine] Allergy (Verified 11/08/20 16:05) Unknown Home Medications: Home Medications Medication Instructions Recorded Confirmed Last Taken Type Acetaminophen [Acetaminophen TAB] 650 mg PO Q4H PRN #30 tablet 08/05/18 06/18/20 05/24/21 Rx Aspirin EC [Halfprin EC] 81 mg PO QDAY #30 tablet. 11/10/20 01/23/21 Rx Gabapentin 300 mg PO BID #60 capsule 11/10/20 01/23/21 Rx Metoprolol [Lopressor TAB] 100 mg PO BID #60 tablet 11/10/20 01/23/21 Rx NIFEdipine XL [Procardia Xl] 60 mg PO BID 30 Days #60 tablet 11/10/20 01/23/21 Rx Sodium Bicarbonate 650 mg PO BID #60 tablet 11/10/20 01/23/21 Rx calcitrioL [Rocaltrol] 0.25 mcg PO QDAY #30 capsule 11/10/20 01/23/21 Rx minoxidiL [Loniten] 10 mg PO BID #60 tablet 11/10/20 01/23/21 Rx Active Medications: Generic Name Dose Route Start Last Admin Trade Name Freq PRN Reason Stop Dose Admin Acetaminophen 650 mg 01/20/21 01:34 01/23/21 17:07 Acetaminophen 325 Mg Tab PO 650 mg Q4H PRN Administration Pain MILD(1-3)/Fever >100.5/MCDONOUGH Al Hydrox/Mg Hydrox/Simethicone 30 ml 01/22/21 18:12 01/22/21 18:33 Alum-Mag Hydroxide-Simethicone [phone]/5ml Oral Liqd 30 Ml PO 30 ml Q4H PRN Administration Indigestion Albuterol 2.5 mg 01/20/21 01:34 Albuterol 2.5 Mg/3 Ml Nebu IH Q4HRT PRN Shortness Of Breath Aspirin 81 mg 01/20/21 10:00 01/24/21 09:14 Aspirin Ec 81 Mg Tab PO 81 mg QDAY KELLY Administration Baclofen 2.5 mg 01/21/21 10:00 01/24/21 21:11 Baclofen 10 Mg Tab PO Not Given BID KELLY Calcitriol 0.25 mcg 01/20/21 10:00 01/24/21 09:15 Calcitriol 0.25 Mcg Cap PO Not Given QDAY KELLY Gabapentin 300 mg 01/20/21 10:00 01/24/21 21:49 Gabapentin 300 Mg Cap PO 300 mg BID KELLY Administration Heparin Sodium (Porcine) 5,000 unit 01/20/21 06:00 01/25/21 05:24 Heparin 5,000 Unit/1 Ml Vial SUB-Q Not Given Q8HR KELLY Hydralazine HCl 10 mg 01/20/21 01:35 01/24/21 22:17 Hydralazine 20 Mg/1 Ml Inj IV 10 mg Q6H PRN Administration htn Sodium Chloride 100 mls @ 999 mls/hr 01/20/21 10:25 Nacl 0.9% IV ALISON PRN Hypotension Metoprolol Tartrate 100 mg 01/20/21 10:00 01/24/21 21:10 Metoprolol Tartrate 100 Mg Tab PO Not Given BID [facility] Morphine Sulfate 2 mg 01/22/21 04:19 01/23/21 17:09 Morphine 2 Mg/1 Ml Inj IV 2 mg Q5MIN PRN Administration Chest Pain unrelieved by NTG Morphine Sulfate 2 mg 01/24/21 01:53 01/25/21 06:31 Morphine 2 Mg/1 Ml Inj IV 2 mg Q4H PRN Administration Pain, Moderate (4-6) Nifedipine 60 mg 01/20/21 10:00 01/24/21 21:10 Nifedipine Xl 60 Mg Tab PO Not Given BID KELLY Nitroglycerin 0.4 mg 01/22/21 04:19 01/22/21 04:40 Nitroglycerin 0.4 Mg Tab Subl SL 0.4 mg .Q5MIN PRN Administration Chest Pain Ondansetron HCl 4 mg 01/20/21 01:34 01/23/21 04:49 Ondansetron 4 Mg/2 Ml Inj IV 4 mg Q8H PRN Administration Nausea And Vomiting Oxycodone/Acetaminophen 1 tab 01/20/21 11:54 01/24/21 13:47 Oxycodone /Acetaminophen 5-325mg Tab PO 1 tab Q8H PRN Administration Pain, Moderate (4-6) Sodium Bicarbonate 650 mg 01/20/21 10:00 01/24/21 21:49 Sodium Bicarbonate 650 Mg Tab PO 650 mg BID KELLY Administration Sodium Chloride 10 ml 01/20/21 10:00 01/24/21 21:49 Sodium Chloride 0.9% 10 Ml Flush Syringe IV 10 ml BID KELLY Administration Sodium Chloride 10 ml 01/20/21 01:34 Sodium Chloride 0.9% 10 Ml Flush Syringe IV PRN PRN LINE FLUSH
--- NOTE | 2021-01-25 09:09 | Progress Note ---
Assessment and Plan Assessment and plan: #ESRD Patient has been noncompliant with hemodialysis He will need to have hemodialysis set up prior to discharge Case management is currently arranging for hemodialysis chair #Fever Resolved. UA negative Chest x-ray ordered Blood culture NTD DC antibiotics #Hypertension Continue home medications #Lupus Complains of diffuse joint pains Prednisone taper Outpatient follow-up with rheumatology #Leg spasms and pain Baclofen Monitor #DVT prophylaxis-Heparin Full code History Interval history: Patient seen and examined at bedside this morning. No fever noted Needs hemodialysis chair which is currently being arranged by case management Hospitalist Physical - Physical exam Narrative exam: VITAL SIGNS: Reviewed. GENERAL: Awake HEAD: No signs of head trauma. EYES: Pupils are equal. Extraocular motions intact. MOUTH: Oropharynx is normal. NECK: No adenopathy, no JVD. CHEST: Chest with diminished breath sounds bilaterally. No wheezes, rales, or rhonchi. CARDIAC: normal S1 and S2, without murmurs, gallops, or rubs. ABDOMEN: Soft, non tender and non distended. No rebound or guarding, and no masses palpated. Bowel Sounds normal. MUSCULOSKELETAL: No edema NEUROLOGIC EXAM: Alert and oriented x3. No focal neurologic deficits SKIN: No obvious lesions - Constitutional Vitals: Temp Pulse Resp BP Pulse Ox 98.9 F 86 18 129/66 98 01/25/21 04:24 01/25/21 04:24 01/25/21 04:24 01/25/21 04:24 01/25/21 04:24 HEART Score - HEART Score Troponin: Troponin T 0.020 ng/mL (0.00-0.029) 01/22/21 07:24 Results - Labs CBC & Chem 7: 01/21/21 05:21 01/21/21 05:21 Labs: Laboratory Last Values WBC 5.3 K/mm3 (4.5-11.0) 01/21/21 05: RBC 3.05 M/mm3 (3.65-5.03) L 01/21/21 05: Hgb 8.4 gm/dl (11.8-15.2) L 01/21/21 05:21 Hct 25.6 % (35.5-45.6) L 01/21/21 05:21 MCV 84 fl (84-94) 01/21/21 05: MCH 28 pg (28-32) 01/21/21 05:21 MCHC 33 % (32-34) 01/21/21 05:21 RDW 15.2 % (13.2-15.2) 01/21/21 05:21 Plt Count 162 K/mm3 (140-440) 01/21/21 05:21 Add Manual Diff Complete 01/21/21 05:21 Total Counted 100 01/21/21 05:21 Seg Neuts % (Manual) 74.0 % (40.0-70.0) H 01/21/21 05:21 Lymphocytes % (Manual) 18.0 % (13.4-35.0) 01/21/21 05:21 Reactive Lymphs % (Man) 1.0 % 01/21/21 05:21 Monocytes % (Manual) 4.0 % (0.0-7.3) 01/21/21 05:21 Eosinophils % (Manual) 2.0 % (0.0-4.3) 01/21/21 05:21 Basophils % (Manual) 1.0 % (0.0-1.8) 01/21/21 05:21 Nucleated RBC % Not Reportable 01/21/21 05:21 Seg Neutrophils # Man 3.9 K/mm3 (1.8-7.7) 01/21/21 05:21 Band Neutrophils # 0.0 K/mm3 01/21/21 05:21 Lymphocytes # (Manual) 1.0 K/mm3 (1.2-5.4) L 01/21/21 05:21 Abs React Lymphs (Man) 0.1 K/mm3 01/21/21 05:21 Monocytes # (Manual) 0.2 K/mm3 (0.0-0.8) 01/21/21 05:21 Eosinophils # (Manual) 0.1 K/mm3 (0.0-0.4) 01/21/21 05:21 Basophils # (Manual) 0.1 K/mm3 (0.0-0.1) 01/21/21 05:21 Metamyelocytes # 0.0 K/mm3 01/21/21 05:21 Myelocytes # 0.0 K/mm3 01/21/21 05:21 Promyelocytes # 0.0 K/mm3 01/21/21 05:21 Blast Cells # 0.0 K/mm3 01/21/21 05:21 WBC Morphology Not Reportable 01/21/21 05:21 Hypersegmented Neuts Not Reportable 01/21/21 05:21 Hyposegmented Neuts Not Reportable 01/21/21 05:21 Hypogranular Neuts Not Reportable 01/21/21 05:21 Smudge Cells Not Reportable 01/21/21 05:21 Toxic Granulation Not Reportable 01/21/21 05:21 Toxic Vacuolation Not Reportable 01/21/21 05:21 Dohle Bodies Not Reportable 01/21/21 05:21 Pelger-Huet Anomaly Not Reportable 01/21/21 05:21 Luc Rods Not Reportable 01/21/21 05:21 Platelet Estimate Consistent w auto 01/21/21 05:21 Clumped Platelets Not Reportable 01/21/21 05:21 Plt Clumps, EDTA Not Reportable 01/21/21 05:21 Large Platelets Not Reportable 01/21/21 05:21 Giant Platelets Not Reportable 01/21/21 05:21 Platelet Satelliting Not Reportable 01/21/21 05:21 Plt Morphology Comment Not Reportable 01/21/21 05:21 RBC Morphology Not Reportable 01/21/21 05:21 Dimorphic RBCs Not Reportable 01/21/21 05:21 Polychromasia Not Reportable 01/21/21 05:21 Hypochromasia Few 01/21/21 05:21 Poikilocytosis Not Reportable 01/21/21 05:21 Anisocytosis Few 01/21/21 05:21 Microcytosis Not Reportable 01/21/21 05:21 Macrocytosis Not Reportable 01/21/21 05:21 Spherocytes Not Reportable 01/21/21 05:21 Pappenheimer Bodies Not Reportable 01/21/21 05:21 Sickle Cells Not Reportable 01/21/21 05:21 Target Cells Not Reportable 01/21/21 05:21 Tear Drop Cells Not Reportable 01/21/21 05:21 Ovalocytes Not Reportable 01/21/21 05:21 Helmet Cells Not Reportable 01/21/21 05:21 [place] Bodies Not Reportable 01/21/21 05:21 [place] Rings Not Reportable 01/21/21 05:21 [place] Cells Not Reportable 01/21/21 05:21 Bite Cells Not Reportable 01/21/21 05:21 Crenated Cell Not Reportable 01/21/21 05:21 Elliptocytes Not Reportable 01/21/21 05:21 Acanthocytes (Spur) Not Reportable 01/21/21 05:21 Rouleaux Not Reportable 01/21/21 05:21 Hemoglobin C Crystals Not Reportable 01/21/21 05:21 Schistocytes Not Reportable 01/21/21 05:21 Malaria parasites Not Reportable 01/21/21 05:21 Elias Bodies Not Reportable 01/21/21 05:21 Hem Pathologist Commnt No 01/21/21 05:21 Sodium 141 mmol/L (137-145) 01/21/21 05:21 Potassium 4.1 mmol/L (3.6-5.0) 01/21/21 05:21 Chloride 100.4 mmol/L (98-107) 01/21/21 05:21 Carbon Dioxide 27 mmol/L (22-30) D 01/21/21 05:21 Anion Gap 18 mmol/L 01/21/21 05:21 BUN 41 mg/dL (9-20) H 01/21/21 05:21 Creatinine 6.2 mg/dL (0.8-1.3) H 01/21/21 05:21 Estimated GFR 12 ml/min 01/21/21 05:21 BUN/Creatinine Ratio 7 % 01/21/21 05:21 Glucose 106 mg/dL (75-100) H 01/21/21 05:21 Calcium 7.6 mg/dL (8.4-10.2) L 01/21/21 05:21 Total Bilirubin 0.30 mg/dL (0.1-1.2) 01/19/21 14:48 AST 19 units/L (5-40) 01/19/21 14:48 ALT 20 units/L (7-56) 01/19/21 14:48 Alkaline Phosphatase 114 units/L (35-129) 01/19/21 14:48 Troponin T 0.020 ng/mL (0.00-0.029) 01/22/21 07:24 Total Protein 8.1 g/dL (6.3-8.2) 01/19/21 14:48 Albumin 4.0 g/dL (3.9-5) 01/19/21 14:48 Albumin/Globulin Ratio 1.0 % 01/19/21 14:48 Urine Color Straw (Yellow) 01/24/21 04:15 Urine Turbidity Clear (Clear) 01/24/21 04:15 Urine pH 9.0 (5.0-7.0) H 01/24/21 04:15 Ur Specific [place] 1.006 (1.003-1.030) 01/24/21 04:15 Urine Protein 100 mg/dl mg/dL (Negative) 01/24/21 04:15 Urine Glucose (UA) 50 mg/dL (Negative) 01/24/21 04:15 Urine Ketones Neg mg/dL (Negative) 01/24/21 04:15 Urine Blood Neg (Negative) 01/24/21 04:15 Urine Nitrite Neg (Negative) 01/24/21 04:15 Urine Bilirubin Neg (Negative) 01/24/21 04:15 Urine Urobilinogen < 2.0 mg/dL (<2.0) 01/24/21 04:15 Ur Leukocyte Esterase Neg (Negative) 01/24/21 04:15 Urine WBC (Auto) 1.0 /HPF (0.0-6.0) 01/24/21 04:15 Urine RBC (Auto) 1.0 /HPF (0.0-6.0) 01/24/21 04:15 Random Vancomycin 14.1 ug/mL (0-40.0) 01/25/21 05:46 Coronavirus (PCR) Negative (Negative) 01/21/21 Unknown Hepatitis A IgM Ab Non-reactive (NonReactive) 01/20/21 13:52 Hep Bs Antigen Non-reactive (Negative) 01/20/21 13:52 Hep B Core IgM Ab Non-reactive (NonReactive) 01/20/21 13:52 Hepatitis C Antibody Reactive (NonReactive) A 01/20/21 13:52 Microbiology: Microbiology 01/23/21 06:31 Peripheral/Venous Blood Culture - Preliminary NO GROWTH AFTER 48 HOURS 01/23/21 06:31 Peripheral/Venous Blood Culture - Preliminary NO GROWTH AFTER 48 HOURS Dave/IV: Voiding Method Toilet Active Medications - Current Medications Current Medications: Generic Name Dose Route Start Last Admin Trade Name Freq PRN Reason Stop Dose Admin Acetaminophen 650 mg 01/20/21 01:34 01/23/21 17:07 Acetaminophen 325 Mg Tab PO 650 mg Q4H PRN Administration Pain MILD(1-3)/Fever >100.5/MCDONOUGH Al Hydrox/Mg Hydrox/Simethicone 30 ml 01/22/21 18:12 01/22/21 18:33 Alum-Mag Hydroxide-Simethicone [id number]/5ml Oral Liqd 30 Ml PO 30 ml Q4H PRN Administration Indigestion Albuterol 2.5 mg 01/20/21 01:34 Albuterol 2.5 Mg/3 Ml Nebu IH Q4HRT PRN Shortness Of Breath Aspirin 81 mg 01/20/21 10:00 01/24/21 09:14 Aspirin Ec 81 Mg Tab PO 81 mg QDAY KELLY Administration Baclofen 2.5 mg 01/21/21 10:00 01/24/21 21:11 Baclofen 10 Mg Tab PO Not Given BID KELLY Calcitriol 0.25 mcg 01/20/21 10:00 01/24/21 09:15 Calcitriol 0.25 Mcg Cap PO Not Given QDAY KELLY Gabapentin 300 mg 01/20/21 10:00 01/24/21 21:49 Gabapentin 300 Mg Cap PO 300 mg BID KELLY Administration Heparin Sodium (Porcine) 5,000 unit 01/20/21 06:00 01/25/21 05:24 Heparin 5,000 Unit/1 Ml Vial SUB-Q Not Given Q8HR KELLY Hydralazine HCl 10 mg 01/20/21 01:35 01/24/21 22:17 Hydralazine 20 Mg/1 Ml Inj IV 10 mg Q6H PRN Administration htn Sodium Chloride 100 mls @ 999 mls/hr 01/20/21 10:25 Nacl 0.9% IV ALISON PRN Hypotension Metoprolol Tartrate 100 mg 01/20/21 10:00 01/24/21 21:10 Metoprolol Tartrate 100 Mg Tab PO Not Given BID [facility] Morphine Sulfate 2 mg 01/22/21 04:19 01/23/21 17:09 Morphine 2 Mg/1 Ml Inj IV 2 mg Q5MIN PRN Administration Chest Pain unrelieved by NTG Morphine Sulfate 2 mg 01/24/21 01:53 01/25/21 06:31 Morphine 2 Mg/1 Ml Inj IV 2 mg Q4H PRN Administration Pain, Moderate (4-6) Nifedipine 60 mg 01/20/21 10:00 01/24/21 21:10 Nifedipine Xl 60 Mg Tab PO Not Given BID KELLY Nitroglycerin 0.4 mg 01/22/21 04:19 01/22/21 04:40 Nitroglycerin 0.4 Mg Tab Subl SL 0.4 mg .Q5MIN PRN Administration Chest Pain Ondansetron HCl 4 mg 01/20/21 01:34 01/23/21 04:49 Ondansetron 4 Mg/2 Ml Inj IV 4 mg Q8H PRN Administration Nausea And Vomiting Oxycodone/Acetaminophen 1 tab 01/20/21 11:54 01/24/21 13:47 Oxycodone /Acetaminophen 5-325mg Tab PO 1 tab Q8H PRN Administration Pain, Moderate (4-6) Sodium Bicarbonate 650 mg 01/20/21 10:00 01/24/21 21:49 Sodium Bicarbonate 650 Mg Tab PO 650 mg BID KELLY Administration Sodium Chloride 10 ml 01/20/21 10:00 01/24/21 21:49 Sodium Chloride 0.9% 10 Ml Flush Syringe IV 10 ml BID KELLY Administration Sodium Chloride 10 ml 01/20/21 01:34 Sodium Chloride 0.9% 10 Ml Flush Syringe IV PRN PRN LINE FLUSH
[2021-01-25] MEDS: GABAPENTIN 300 MG CAP PO SCH ×2 (09:24→22:22)
[2021-01-25] MEDS: BACLOFEN 10 MG TAB PO SCH ×2 (09:24→22:21)
[2021-01-25] MEDS ORDERED: EPOETIN ALFA-EPBX 10,000 UNIT/1 ML VIAL SUB-Q SCH (10:00)
[2021-01-25] MEDS ORDERED: predniSONE 20 MG TAB PO NR (10:00)
[2021-01-25] MEDS: CALCITRIOL 0.25 MCG CAP PO SCH ×2 (11:44→15:21)
[2021-01-25] MEDS: NIFEdipine XL 60 MG TAB PO SCH ×3 (11:44→22:21)
[2021-01-25] MEDS: SODIUM BICARBONATE 650 MG TAB PO SCH ×3 (11:44→22:21)
[2021-01-25] MEDS: METOPROLOL TARTRATE 100 MG TAB PO SCH ×3 (11:44→22:21)
[2021-01-25] MEDS: ASPIRIN EC 81 MG TAB PO SCH ×2 (11:44→15:21)
[2021-01-25] MEDS: oxyCODONE /ACETAMINOPHEN 5-325MG TAB PO PRN (15:20)
[2021-01-26] MEDS: MORPHINE 2 MG/1 ML INJ IV PRN (03:11)
[2021-01-26] MEDS: HEPARIN 5,000 UNIT/1 ML VIAL SUB-Q SCH (07:28)
[2021-01-26] MEDS ORDERED: predniSONE 10 MG TAB PO SCH (10:00)
[2021-01-26] MEDS: SODIUM BICARBONATE 650 MG TAB PO SCH (10:12)
[2021-01-26] MEDS: BACLOFEN 10 MG TAB PO SCH (10:12)
[2021-01-26] MEDS: oxyCODONE /ACETAMINOPHEN 5-325MG TAB PO PRN (10:12)
[2021-01-26] MEDS: GABAPENTIN 300 MG CAP PO SCH (10:12)
[2021-01-26] MEDS: NIFEdipine XL 60 MG TAB PO SCH (10:12)
[2021-01-26] MEDS: METOPROLOL TARTRATE 100 MG TAB PO SCH (10:12)
[2021-01-26] MEDS: CALCITRIOL 0.25 MCG CAP PO SCH (10:12)
[2021-01-26] MEDS: ASPIRIN EC 81 MG TAB PO SCH (10:12)
--- NOTE | 2021-01-26 11:35 | Discharge Summary ---
Providers - Providers Date of Admission: 01/20/21 11:33 Date of discharge: 01/26/21 Attending physician: RADHA HUSSEIN 01/20/21 00:56 Consult to Physician [CONS] Routine Comment: Dr. Vallecillo spoke with Dr. Eubanks @ 0054 Consulting Provider: GEN EUBANKS Physician Instructions: Reason For Exam: esrd. need hd 01/20/21 09:24 Consult to Physician [CONS] Routine Comment: Consulting Provider: HARRISON SANZ Physician Instructions: Reason For Exam: ESRD 01/20/21 09:51 Consult to Case Management [CONS] Routine Services Needed at Discharge: Other Notified:: . Additional Physician Instructions: Confirmation of HD chair Primary care physician: CITLALI GRANT MD Hospitalization Condition: Critical Hospital course: 55-year-old male with past medical history of hypertension end-stage renal disease on dialysis was brought to the emergency room because patient missed dialysis. Patient states she has not had dialysis for 2 weeks. Patient states he has missed 4-5 dialysis treatments. Patient states he gets dialysis 3 days a week. Patient states his dialysis treatments are 4 hours each treatment. Patient states he was recently dropped from his dialysis clinic for noncompliance. Patient states his supervisor salvage Dr. Poe has discharged him from his practice. Patient denies chest pain. Patient denies shortness of breath. Patient states he needs dialysis. Patient denies any other symptoms. In the emergency room patient BUN is 90 creatinine is 11.1 and bicarb is 19. Nephrology was consulted. HD was initiated again and he tolerated the sessions. was consulted for HD chair arrangement which has been set up. He has been advised to continue HD as scheduled. He will be discharged to follow up with supervisor salvage in 1-2 weeks. Disposition: DC- TO HOME OR SELFCARE Final Discharge Diagnosis (Prints w/discharge instructions): ESRD on HD - missed HD sessions Time spent for discharge: 30mins Core Measure Documentation - Palliative Care Palliative Care/ Comfort Measures: Not Applicable - Core Measures Any of the following diagnoses?: none Exam - Physical Exam Narrative exam: VITAL SIGNS: Reviewed. GENERAL: Awake HEAD: No signs of head trauma. EYES: Pupils are equal. Extraocular motions intact. MOUTH: Oropharynx is normal. NECK: No adenopathy, no JVD. CHEST: Chest with diminished breath sounds bilaterally. No wheezes, rales, or rhonchi. CARDIAC: normal S1 and S2, without murmurs, gallops, or rubs. ABDOMEN: Soft, non tender and non distended. No rebound or guarding, and no masses palpated. Bowel Sounds normal. MUSCULOSKELETAL: No edema NEUROLOGIC EXAM: Alert and oriented x3. No focal neurologic deficits SKIN: No obvious lesions - Constitutional Vitals: Temp Pulse Resp BP Pulse Ox 98.6 F 72 16 136/76 95 01/26/21 05:25 01/26/21 10:12 01/26/21 05:25 01/26/21 10:12 01/26/21 05:25 Plan Diet: renal Additional Instructions: Continue HD as scheduled. Follow up with PCP in a week Follow up with: CITLALI GRANT MD [Primary Care Provider] - 3-5 Days Prescriptions: predniSONE [Deltasone] 5 mg PO DAILY #5 tablet
[2021-01-26 11:38] VITALS: BP 124/81
[2021-01-29] MEDS ORDERED: predniSONE 5 MG TAB PO SCH (10:00)
== END 2021-01-26 12:15 | disposition home or self-care (01) | DRG 682 ==
LOC: ED 11:56 → 3A 01-20 00:57 → OBSVTOIN 01-20 11:33 → UNDODISIN 01-25 20:30
PROVIDERS: ADMIT Hospitalist; ATTEND Internal Medicine
PROC: 5A1D70Z Performance of Urinary Filtration, Intermittent, Less than 6 Hours Per Day (ICD-10-PCS; 2021-01-20)
PROC: 5A1D70Z Performance of Urinary Filtration, Intermittent, Less than 6 Hours Per Day (ICD-10-PCS; 2021-01-23)
PROC: 5A1D70Z Performance of Urinary Filtration, Intermittent, Less than 6 Hours Per Day (ICD-10-PCS; principal; 2021-01-25)
DX: I12.0 Hypertensive chronic kidney disease with stage 5 chronic kidney disease or end stage renal disease (principal); N18.6 End stage renal disease; Z20.822 Contact with and (suspected) exposure to COVID-19; M32.9 Systemic lupus erythematosus, unspecified; F17.200 Nicotine dependence, unspecified, uncomplicated; E87.2 Acidosis; D63.1 Anemia in chronic kidney disease; Z99.2 Dependence on renal dialysis; Z91.15 Patient's noncompliance with renal dialysis; Z79.899 Other long term (current) drug therapy; Z79.891 Long term (current) use of opiate analgesic; Z79.01 Long term (current) use of anticoagulants; Z88.8 Allergy status to other drugs, medicaments and biological substances; Z88.1 Allergy status to other antibiotic agents; Z79.82 Long term (current) use of aspirin
CPT/HCPCS: 36415; 71045; 80048; 80053; 80074; 80202; 81001; 82962; 84484; 85007; 85025; 87040; 93005; 94640; G0378; J0360; J0885; J1170; J1644; J2270; J2405; J3370; J7040; J7512; U0003

== ENCOUNTER 2022-01-02 17:43 | Emergency (ER) | payer MEDICAID ==
[2022-01-03] MEDS ORDERED: LIDOCAINE (1%) 10 MG/1 ML VIAL 20 ML MDV INFILTRATI ONE (02:57)
[2022-01-03] MEDS ORDERED: ONDANSETRON 4 MG ODT TAB PO ONE (02:57)
[2022-01-03] MEDS ORDERED: oxyCODONE /ACETAMINOPHEN 5-325MG TAB PO ONE (02:57)
[2022-01-03] MEDS ORDERED: CLINDAMYCIN 150 MG CAP PO ONE (02:57)
--- NOTE | 2022-01-03 04:48 | Emergency Department Report ---
ED General Adult HPI - General Chief complaint: Skin/Abscess/Foreign Body Stated complaint: NECK/HIP/EYE PAIN Source: patient Mode of arrival: Ambulatory Limitations: No Limitations - History of Present Illness Initial comments: Patient is a 56-year-old -[place] male with a history of hypertension and ESRD on hemodialysis who presents to the ED with complaint of persistent right gluteus pain for swelling rash intermittently for the last 8 months, but which got worse in the last 5 days. Patient states that he is unable to sit down because of worsening pain. Patient denies numbness and tingling or weakness of lower extremities bilaterally, urinary or bowel incontinence, chest pain or shortness of breath, nausea and vomiting, traumatic injury, headache, back pain, fever and chills. MD Complaint: abscess of right gluteus -: Gradual, month(s) (8) Location: buttocks Radiation: non-radiation Severity scale (0 -10): 7 Consistency: constant Improves with: none Worsens with: none Associated Symptoms: denies other symptoms. denies: confusion, chest pain, cough, diaphoresis, headaches, malaise, nausea/vomiting, rash, seizure, shortness of breath, syncope Treatments Prior to Arrival: none - Related Data Previous Rx's Medication Instructions Recorded Last Taken Type Acetaminophen [Acetaminophen TAB] 650 mg PO Q4H PRN #30 tablet 04/06/18 Unknown Rx Aspirin EC [Halfprin EC] 81 mg PO QDAY #30 tablet.dr 11/10/20 Unknown Rx Gabapentin 300 mg PO BID #60 capsule 11/10/20 Unknown Rx Metoprolol [Lopressor TAB] 100 mg PO BID #60 tablet 11/10/20 Unknown Rx NIFEdipine XL [Procardia Xl] 60 mg PO BID 30 Days #60 tablet 11/10/20 Unknown Rx Sodium Bicarbonate 650 mg PO BID #60 tablet 11/10/20 Unknown Rx calcitrioL [Rocaltrol] 0.25 mcg PO QDAY #30 capsule 11/10/20 Unknown Rx predniSONE [Deltasone] 5 mg PO DAILY #5 tablet 01/26/21 Unknown Rx Acetaminophen/Codeine [Tylenol 1 tab PO Q6H PRN #15 tab 01/03/22 Unknown Rx /Codeine # 3 tab] Clindamycin [Clindamycin CAP] 300 mg PO Q6H #40 cap 01/03/22 Unknown Rx Allergies Allergy/AdvReac Type Severity Reaction Status Date / Time doxycycline Allergy Unknown Verified 11/08/20 16:05 prochlorperazine edisylate Allergy Unknown Verified 11/08/20 16:05 [From Compazine] ED Review of Systems ROS: Stated complaint: NECK/HIP/EYE PAIN Other details as noted in HPI Constitutional: denies: chills, fever Eyes: denies: eye pain, eye discharge, vision change ENT: denies: ear pain, throat pain Respiratory: denies: cough, shortness of breath, wheezing Cardiovascular: denies: chest pain, palpitations Endocrine: no symptoms reported Gastrointestinal: denies: abdominal pain, nausea, vomiting, diarrhea Genitourinary: denies: urgency, dysuria Musculoskeletal: denies: back pain, joint swelling Skin: rash (swollen painful rash on right gluteus), change in color. denies: lesions Neurological: denies: headache, weakness, paresthesias Psychiatric: denies: anxiety, depression Hematological/Lymphatic: denies: easy bleeding, easy bruising ED Past Medical Hx - Past Medical History Hx Hypertension: Yes Hx Heart Attack/AMI: No Hx Congestive Heart Failure: No Hx Diabetes: No Hx Deep Vein Thrombosis: No Hx Pulmonary Embolism: No Hx Liver Disease: No Hx Renal Disease: Yes (Dialysis) Hx Sickle Cell Disease: No Hx Arthritis: No Hx Headaches / Migraines: No Hx Seizures: No Hx Kidney Stones: No Hx Asthma: No Hx COPD: No Hx Tuberculosis: No Hx Dementia: No Hx HIV: No Additional medical history: Lupus - Surgical History Hx Coronary Stent: No Hx Open Heart Surgery: No Hx Pacemaker: No Hx Internal Defibrillator: No Hx Cholecystectomy: Yes Hx Appendectomy: No Hx Breast Surgery: No Additional Surgical History: kidney biopsys, left upper extremity fistula - Social History Smoking Status: Current Every Day Smoker Substance Use Type: None - Medications Home Medications: Home Medications Medication Instructions Recorded Confirmed Last Taken Type Acetaminophen [Acetaminophen TAB] 650 mg PO Q4H PRN #30 tablet 04/06/18 01/25/21 Unknown Rx Aspirin EC [Halfprin EC] 81 mg PO QDAY #30 tablet. 11/10/20 01/25/21 Unknown Rx Gabapentin 300 mg PO BID #60 capsule 11/10/20 01/25/21 Unknown Rx Metoprolol [Lopressor TAB] 100 mg PO BID #60 tablet 11/10/20 01/25/21 Unknown Rx NIFEdipine XL [Procardia Xl] 60 mg PO BID 30 Days #60 tablet 11/10/20 01/25/21 Unknown Rx Sodium Bicarbonate 650 mg PO BID #60 tablet 11/10/20 01/25/21 Unknown Rx calcitrioL [Rocaltrol] 0.25 mcg PO QDAY #30 capsule 11/10/20 01/25/21 Unknown Rx predniSONE [Deltasone] 5 mg PO DAILY #5 tablet 01/26/21 Unknown Rx Acetaminophen/Codeine [Tylenol 1 tab PO Q6H PRN #15 tab 01/03/22 Unknown Rx /Codeine # 3 tab] Clindamycin [Clindamycin CAP] 300 mg PO Q6H #40 cap 01/03/22 Unknown Rx ED Physical Exam - General Limitations: No Limitations General appearance: alert, in no apparent distress - Head Head exam: Present: atraumatic, normocephalic, normal inspection - Eye Eye exam: Present: normal appearance, PERRL, EOMI Pupils: Present: normal accommodation - ENT ENT exam: Present: normal exam, normal orophraynx, mucous membranes moist, TM's normal bilaterally, normal external ear exam - Neck Neck exam: Present: normal inspection, full ROM. Absent: tenderness - Respiratory Respiratory exam: Present: normal lung sounds bilaterally. Absent: respiratory distress, wheezes, rales, chest wall tenderness, decreased breath sounds, prolonged expiratory - Cardiovascular Cardiovascular Exam: Present: regular rate, normal rhythm, normal heart sounds. Absent: systolic murmur, diastolic murmur, rubs, gallop - GI/Abdominal GI/Abdominal exam: Present: soft, normal bowel sounds. Absent: tenderness, guarding, hyperactive bowel sounds, organomegaly, mass - Extremities Exam Extremities exam: Present: normal inspection, full ROM, normal capillary refill. Absent: tenderness - Back Exam Back exam: Present: normal inspection, full ROM. Absent: tenderness, CVA tenderness (R), CVA tenderness (L), muscle spasm, paraspinal tenderness, vertebral tenderness - Neurological Exam Neurological exam: Present: alert, oriented X3, CN II-XII intact, normal gait, reflexes normal - Psychiatric Psychiatric exam: Present: normal affect, normal mood - Skin Skin exam: Present: warm, dry, intact, normal color, rash (Swollen, tender fluctuant rash on right gluteus), erythema ED Course Vital Signs 01/02/22 20:22 Temperature 98.5 F Pulse Rate 80 Respiratory 18 Rate Blood Pressure 189/110 O2 Sat by Pulse 98 Oximetry - I & D Right Buttocks Type of Procedure: Simple Site: right gluteus Blade Size: 11 I & D Procedure: betadine prep, sterile drapes applied, sterile dressing applied Progress: There was cleaned with normal saline and Betadine solution. Lidocaine 1% solution was used to infiltrate the area for local anesthesia. When anesthesia was fully achieved, the wound was incised with scalpel blade #11. A mixture of thick purulent discharge and blood drained from the area. Loculations were broken with hemostat and the area wound was cleaned with normal saline extensively. The wound was then packed with iodoform gauze and dressed with 4 x 4 gauze and Tegaderm. Patient tolerated procedure well. The patient was then discharged home on pain medication and antibiotics and advised to follow-up with his primary care physician in 7 to 10 days for reevaluation or return to the ED immediately if symptoms get worse. Patient was otherwise advised to return to the ED in 2 days for wound recheck and packing removal. ED Medical Decision Making - Medical Decision Making This is a 56-year-old -[place] male with a history of hypertension and ESRD on hemodialysis who presents to the ED with complaint of persistent right gluteus pain for swelling rash intermittently for the last 8 months, but which got worse in the last 5 days. Patient states that he is unable to sit down because of worsening pain. In the ED, patient is alert and oriented x3 and is not in any distress. Patient was treated for pain in the ED and also given initial oral antibiotics. The area was cleaned extensively with normal saline and Betadine solution and lidocaine 1% solution was used as a local anesthetic. When anesthesia was fully achieved, the area was incised with scalpel blade #11 and copious thick purulent discharge drained mixed with blood. The wound was then extensively debrided with normal saline and flocculation's were broken with a hemostat. The wound was then packed with iodoform quarter inch gauze and dressed appropriately with 4 x 4 gauze and Tegaderm. Patient tolerated the procedure well. Patient was thereafter discharged home on pain medication and antibiotics and advised to return to the ED in 2 days for wound recheck. Patient was also advised to follow-up with his primary care physician in 7 to 10 days for reevaluation. Patient was advised to return to the ED immediately if symptoms get worse. - Differential Diagnosis Cellulitis; hematoma; cutaneous abscess; folliculitis Critical care attestation.: If time is entered above; I have spent that time in minutes in the direct care of this critically ill patient, excluding procedure time. ED Disposition Clinical Impression: Cutaneous abscess of buttock, Cellulitis of right buttock Disposition: HOME / SELF CARE / HOMELESS Is pt being admited?: No Does the pt Need Aspirin: No Condition: Stable Instructions: Incision and Drainage, Care After, Incision and Drainage, Cellulitis, Adult, [id number], Skin Abscess, [id number] Additional Instructions: Take medication as needed for pain, drink plenty of fluids, follow-up with your primary care physician in 7 to 10 days for reevaluation. Return to the ED immediately if symptoms get worse. Otherwise return to the ED in 2 days for wound recheck and packing removal. Prescriptions: Clindamycin [Clindamycin CAP] 300 mg PO Q6H #40 cap Acetaminophen/Codeine [Tylenol /Codeine # 3 tab] 1 tab PO Q6H PRN #15 tab PRN Reason: Pain , Severe (7-10) Referrals: [facility] [Provider Group] - 3-5 Days Time of Disposition: 04:54 Print Language: QATARI
[2022-01-03 07:13] VITALS: BP 168/92
== END 2022-01-03 05:18 | disposition home or self-care (01) ==
LOC: ED 17:43
DX: L02.31 Cutaneous abscess of buttock (principal); L03.317 Cellulitis of buttock; F17.200 Nicotine dependence, unspecified, uncomplicated; Z88.1 Allergy status to other antibiotic agents; I10 Essential (primary) hypertension
CPT/HCPCS: 99282; J3490; Q0162

== ENCOUNTER 2022-01-05 11:05 | Emergency (ER) | payer MEDICAID ==
--- NOTE | 2022-01-06 02:58 | Emergency Department Report ---
ED General Adult HPI - General Chief complaint: Wound/Laceration Stated complaint: REMOVE GAUZE Source: patient Mode of arrival: Ambulatory Limitations: No Limitations - History of Present Illness MD Complaint: wound recheck and parking removal -: Sudden, week(s) (1) Location: buttocks Radiation: non-radiation Severity scale (0 -10): 0 Quality: aching Consistency: constant Improves with: movement Worsens with: rest Associated Symptoms: denies other symptoms, other (Open abscess wound with packing material on the left gluteus). denies: confusion, chest pain, cough, fever/chills, headaches, loss of appetite, malaise, nausea/vomiting, rash, shortness of breath, syncope, weakness Treatments Prior to Arrival: none - Related Data Previous Rx's Medication Instructions Recorded Last Taken Type Acetaminophen [Acetaminophen TAB] 650 mg PO Q4H PRN #30 tablet 04/06/18 Unknown Rx Aspirin EC [Halfprin EC] 81 mg PO QDAY #30 tablet. 11/10/20 Unknown Rx Gabapentin 300 mg PO BID #60 capsule 11/10/20 Unknown Rx Metoprolol [Lopressor TAB] 100 mg PO BID #60 tablet 11/10/20 Unknown Rx NIFEdipine XL [Procardia Xl] 60 mg PO BID 30 Days #60 tablet 11/10/20 Unknown Rx Sodium Bicarbonate 650 mg PO BID #60 tablet 11/10/20 Unknown Rx calcitrioL [Rocaltrol] 0.25 mcg PO QDAY #30 capsule 11/10/20 Unknown Rx predniSONE [Deltasone] 5 mg PO DAILY #5 tablet 01/26/21 Unknown Rx Acetaminophen/Codeine [Tylenol 1 tab PO Q6H PRN #15 tab 01/03/22 Unknown Rx /Codeine # 3 tab] Clindamycin [Clindamycin CAP] 300 mg PO Q6H #40 cap 01/03/22 Unknown Rx Allergies Allergy/AdvReac Type Severity Reaction Status Date / Time doxycycline Allergy Unknown Verified 11/08/20 16:05 prochlorperazine edisylate Allergy Unknown Verified 11/08/20 16:05 [From Compazine] ED Review of Systems ROS: Stated complaint: REMOVE GAUZE Other details as noted in HPI ED Past Medical Hx - Past Medical History Hx Hypertension: Yes Hx Heart Attack/AMI: No Hx Congestive Heart Failure: No Hx Diabetes: No Hx Deep Vein Thrombosis: No Hx Pulmonary Embolism: No Hx Liver Disease: No Hx Renal Disease: Yes (Dialysis) Hx Sickle Cell Disease: No Hx Arthritis: No Hx Headaches / Migraines: No Hx Seizures: No Hx Kidney Stones: No Hx Asthma: No Hx COPD: No Hx Tuberculosis: No Hx Dementia: No Hx HIV: No Additional medical history: Lupus - Surgical History Hx Coronary Stent: No Hx Open Heart Surgery: No Hx Pacemaker: No Hx Internal Defibrillator: No Hx Cholecystectomy: Yes Hx Appendectomy: No Hx Breast Surgery: No Additional Surgical History: kidney biopsys, left upper extremity fistula - Social History Smoking Status: Current Every Day Smoker Substance Use Type: None - Medications Home Medications: Home Medications Medication Instructions Recorded Confirmed Last Taken Type Acetaminophen [Acetaminophen TAB] 650 mg PO Q4H PRN #30 tablet 04/06/18 01/25/21 Unknown Rx Aspirin EC [Halfprin EC] 81 mg PO QDAY #30 tablet. 11/10/20 01/25/21 Unknown Rx Gabapentin 300 mg PO BID #60 capsule 11/10/20 01/25/21 Unknown Rx Metoprolol [Lopressor TAB] 100 mg PO BID #60 tablet 11/10/20 01/25/21 Unknown Rx NIFEdipine XL [Procardia Xl] 60 mg PO BID 30 Days #60 tablet 11/10/20 01/25/21 Unknown Rx Sodium Bicarbonate 650 mg PO BID #60 tablet 11/10/20 01/25/21 Unknown Rx calcitrioL [Rocaltrol] 0.25 mcg PO QDAY #30 capsule 11/10/20 01/25/21 Unknown Rx predniSONE [Deltasone] 5 mg PO DAILY #5 tablet 01/26/21 Unknown Rx Acetaminophen/Codeine [Tylenol 1 tab PO Q6H PRN #15 tab 01/03/22 Unknown Rx /Codeine # 3 tab] Clindamycin [Clindamycin CAP] 300 mg PO Q6H #40 cap 01/03/22 Unknown Rx ED Physical Exam - General Limitations: No Limitations ED Course Vital Signs 01/05/22 18:17 Temperature 98.6 F Pulse Rate 72 Respiratory 18 Rate Blood Pressure 141/86 [Right] O2 Sat by Pulse 98 Oximetry Critical care attestation.: If time is entered above; I have spent that time in minutes in the direct care of this critically ill patient, excluding procedure time. ED Disposition Condition: Stable Referrals: PRIMARY CARE, [Primary Care Provider] - 3-5 Days
[2022-01-06 03:26] VITALS: BP 177/98
== END 2022-01-06 03:19 | disposition home or self-care (01) ==
LOC: ED 11:05
DX: Z48.01 Encounter for change or removal of surgical wound dressing (principal); I10 Essential (primary) hypertension; F17.200 Nicotine dependence, unspecified, uncomplicated; Z79.899 Other long term (current) drug therapy; Z88.1 Allergy status to other antibiotic agents; Z88.8 Allergy status to other drugs, medicaments and biological substances; Z79.82 Long term (current) use of aspirin
CPT/HCPCS: 99282